=== PATIENT | female | born 1970 | race African-American/Black ===

== ENCOUNTER 2018-06-13 02:45 | Inpatient (IN) | payer OTHER ==
[~2018-06-13] VITALS: Ht 160 cm; Wt 114.6 kg
--- NOTE | ~2018-06-13 | OP ---
PATIENT NAME: KRYSTAL MARIE MEDICAL RECORD: [id number] :72 LOCATION:D. D.2139 ADMISSION DATE:06/13/18 SURGEON: BECKI COOPER MD DATE OF OPERATION: 06/13/2018 SURGEON: Becki Cooper MD PREOPERATIVE DIAGNOSIS: Large bowel obstruction. POSTOPERATIVE DIAGNOSIS: Large bowel obstruction. PROCEDURE PERFORMED: Flexible sigmoidoscopy with balloon dilatation of colorectal anastomotic stricture. ANESTHESIA: General. COMPLICATIONS: None. SPECIMENS: None. Case was grossly contaminated. OPERATIVE COURSE: After consent was obtained, the patient was taken to the operating room and placed in the supine position on the operating table. Next, general anesthesia was given via endotracheal intubation. Thereafter, the patient was placed in the lithotomy position. Digital rectal exam was performed. The flexible sigmoidoscope was inserted into the rectum. Rectum was dilated under direct endoscopic vision, the scope was advanced through the rectum. A severe area of anastomotic stenosis was encountered at approximately 10 cm. The scope was gently passed. The scope was able to be traversed across the anastomosis, slow gentle advancements. Once the scope was advanced to the stenosis, the proximal colon was fluid filled with liquid stool and markedly dilated. At this time, colonic lavage was performed. A series of balloons were passed through the gastroscope. the anastomosis was dilated from 28-Polish to 68-60 Polish over a period of approximately 20 minutes using multiple series of balloon dilators. Once the anastomosis was balloon dilated for 60 cm and held for 3 minutes, the balloon was removed. The scope was easily traversed across the anastomosis with a large copious evacuation of air and stool. At this time, the procedure was terminated. At the end of the case, all needle and instrument counts were correct. No complications occurred. The patient was extubated and transferred to the recovery room in satisfactory condition. TRANSINT:[id number] Voice Confirmation ID: [id number] DOCUMENT ID: [id number] BECKI COOPER MD at 0759 CC: [id number] DICTATION DATE: 06/13/18 1530 MACHINE CLIPPER: 06/13/18 1555 [place] [address]
--- NOTE | ~2018-06-13 | MORECARE ---
CASE MANAGEMENT DISCHARGE SUMMARY PATIENT: KRYSTAL MARIE UNIT: [id number] ADM DATE: 06/13/18 AGE: 47 : 72 SEX: F ROOM/BED: D.0641 AUTHOR: JOSSY,DOC PHYSICIAN: REFERRING PHYSICIAN: BECKI COOPER MD DATE OF SERVICE: 06/15/18 Discharge Plan Patient Name: KRYSTAL MARIE Facility: [facility]:[place] : 1970 Planned Disposition: Home Anticipated Discharge Date: 06/15/18 Discharge Date: Expected LOS: 2 Initial Reviewer: [email or web address] Initial Review Date: 06/15/2018 Generated: 06/15/18 4:18 pm Comments DCP- Discharge Planning Updated by [email or web address]: Zaid Carter on 06/15/18 2:[address] Patient Name: KRYSTAL MARIE Admission Status: ER Accout number: [id number] Admission Date: 06-13-2018 : 1970 Admission Diagnosis:UNSPECIFIED ABDOMINAL PAIN Attending: BECKI COOPER Current LOS: 2 Anticipated DC Date: 06-15-2018 Planned Disposition: Home Primary Insurance: [facility] Discharge Planning Comments: CM MET WITH PT AND SPOUSE IN ROOM TO DISCUSS DISCHARGE PLANNING AND NEEDS. KRYSTAL MARIE provided verbal consent to discuss current and ongoing needs with/in the presence of: SPOUSE, KARLENE. PT REPORTS LIVING AT HOME INDEPENDENTLY WITH SPOUSE. PT HAS NO MEDICAL EQUIPMENT AND NO OUTSIDE SERVICES ASSISTING IN THE HOME. CM DISCUSSED AVAILABILITY OF HOME HEALTH, REHAB SERVICES AND MEDICAL EQUIPMENT. PT DENIES DISCHARGE NEEDS AT THIS TIME, REPORTS HER SPOUSE WILL PICK HER UP FOR DISCHARGE HOME. PT PLANS TO DISCHARGE HOME WITH FAMILY, DENIES NEEDS AT THIS TIME. SPOUSE TO TRANSPORT HOME AT DISCHARGE. CM TO FOLLOW AND ASSIST NEEDED. Edge Burnisher: Zaid Carter DCPIA - Discharge Planning Initial Assessment Updated by [id number]: Zaid Carter on 06/15/18 3:14 pm * Is the patient Alert and Oriented? Yes * How many steps to enter\exit or inside your home? NONE * PCP DR PAYTON GILL * Pharmacy [facility] * Preadmission Environment Home with Family * ADLs Independent * Equipment None * Other Equipment NO MEDICAL EQUIPMENT PROVIDER PREFERENCE * List name and contact numbers for known caregivers / representatives who currently or will assist patient after discharge: KARLENE MARIE, SPOUSE, * Verbal permission to speak to the caregivers and representatives has been obtained from the patient. Yes * Community resources currently utilized None * Please name any agencies selected above. NONE * Additional services required to return to the preadmission environment? No * Can the patient safely return to the preadmission environment? Yes * Has this patient been hospitalized within the prior 30 days at any hospital? No Patient Name: KRYSTAL MARIE Page [phone] at 1518 All edits/amendments must be made on the electronic document DICTATION DATE: 06/15/181517 PERCHER: MICHAEL 06/15/181517 RPT#: [id number] DC DATE: STATUS: ADM IN [facility] [address] [place] [address] END OF REPORT
--- NOTE | ~2018-06-13 | MORECARE ---
CASE MANAGEMENT DISCHARGE SUMMARY PATIENT: KRYSTAL MARIE UNIT: [id number] ADM DATE: 06/13/18 AGE: 47 : 72 SEX: F ROOM/BED: D.8869 AUTHOR: JOSSY,DOC PHYSICIAN: REFERRING PHYSICIAN: BECKI COOPER MD DATE OF SERVICE: 06/27/18 Discharge Plan Patient Name: KRYSTAL MARIE Facility: [facility]:[place] : 1970 Planned Disposition: Home Anticipated Discharge Date: 06/27/18 Discharge Date: Expected LOS: 14 Initial Reviewer: [email or web address] Initial Review Date: 06/15/2018 Generated: 06/27/18 10:52 am Comments DCP- Discharge Planning Updated by [email or web address]: Zaid Carter on 06/15/18 3:[address] Patient Name: KRYSTAL MARIE Admission Status: ER Accout number: [id number] Admission Date: 06-13-2018 : 1970 Admission Diagnosis:UNSPECIFIED ABDOMINAL PAIN Attending: BECKI COOPER Current LOS: 2 Anticipated DC Date: 06-15-2018 Planned Disposition: Home [facility] Discharge Planning Comments: CM MET WITH PT AND SPOUSE IN ROOM TO DISCUSS DISCHARGE PLANNING AND NEEDS. KRYSTAL MARIE provided verbal consent to discuss current and ongoing needs with/in the presence of: SPOUSE, KARLENE. PT REPORTS LIVING AT HOME INDEPENDENTLY WITH SPOUSE. PT HAS NO MEDICAL EQUIPMENT AND NO OUTSIDE SERVICES ASSISTING IN THE HOME. CM DISCUSSED AVAILABILITY OF HOME HEALTH, REHAB SERVICES AND MEDICAL EQUIPMENT. PT DENIES DISCHARGE NEEDS AT THIS TIME, REPORTS HER SPOUSE WILL PICK HER UP FOR DISCHARGE HOME. PT PLANS TO DISCHARGE HOME WITH FAMILY, DENIES NEEDS AT THIS TIME. SPOUSE TO TRANSPORT HOME AT DISCHARGE. CM TO FOLLOW AND ASSIST NEEDED. Belt Loop Maker: Zaid Carter DCPIA - Discharge Planning Initial Assessment Updated by [id number]: Zaid Carter on 06/15/18 3:14 pm * Is the patient Alert and Oriented? Yes * How many steps to enter\exit or inside your home? NONE * PCP DR PAYTON GILL * [facility] * Preadmission Environment Home with Family * ADLs Independent * Equipment None * Other Equipment NO MEDICAL EQUIPMENT PROVIDER PREFERENCE * List name and contact numbers for known caregivers / representatives who currently or will assist patient after discharge: KARLENE MARIE, SPOUSE, * Verbal permission to speak to the caregivers and representatives has been obtained from the patient. Yes * Community resources currently utilized None * Please name any agencies selected above. NONE * Additional services required to return to the preadmission environment? No * Can the patient safely return to the preadmission environment? Yes * Has this patient been hospitalized within the prior 30 days at any hospital? No Last DP export: 06/15/18 3:18 Patient Name: KRYSTAL MARIE Page [phone] at 0952 All edits/amendments must be made on the electronic document DICTATION DATE: 06/27/18950 SUPERVISOR ADULT EDUCATION: MICHAEL 06/27/18950 RPT#: [id number] DC DATE: STATUS: ADM IN [facility] [address] [place] [address] END OF REPORT
--- NOTE | ~2018-06-13 | EC ---
PATIENT:KRYSTAL MARIE DATE OF SERVICE: 06/13/18 SEX: F MEDICAL RECORD: [id number] DATE OF : [birth year] LOCATION:D.M2 D.213 AGE OF PATIENT: 47 ADMISSION DATE: 06/13/18 REFERRING PHYSICIAN: INTERPRETING PHYSICIAN: SAIMA XIONG MD ECHOCARDIOGRAM REPORT ECHO CHARGES 4 ECHO COMPLETE Date: 06/26/18 CLINICAL DIAGNOSIS: EKG CHANGES ECHOCARDIOGRAPHIC MEASUREMENTS (adult normal given) AC root (d.<3.7cm) 3.3 cm LV Septum d (<1.2 cm> 2.3 cm Valve Excursion 1.0 cm LV Septum (systole) 2.3 cm Left Atria (s.<4.0cm> 3.3 cm LVPW d(<1.2cm) 0.8 cm RV (d.<2.3cm) 2.7 cm LVPW (sytole) 0.9 cm LV diastole(<5.6CM) 5.2 cm MV E-F(>70mm/sec) cm LV systole 4.3 cm LVOT Diameter 0.9 cm MV exc.(>10mm) cm Est.ejection fraction (50-75%) % DOPPLER: LVIT cm/sec A 73 cm/sec E 85 cm/sec LA cm/sec RVSP 29.0 mmHg LVOT 98 cm/sec AOP1/2T m/s Asc. Ao 147 cm/sec RVOT 66 cm/sec RA cm/sec PA 88 cm/sec AV Gradient Peak 8.7 mmHg AV Mean 5.2 mmHg AV Area 0.5 cm MV Gradient Peak 5.9 mmHg MV Mean 2.2 mmHg MV Area cm COMMENTS: Networks Computer Consultant: Darrian [facility] Music Therapist: 1 Dr. Xiong TAPE# PACS Pericardial Effusion N DATE OF SERVICE: 06/26/2018 PROCEDURE: Echocardiogram. FINDINGS: 1. Left ventricular chamber size is within normal limits. Left ventricular systolic function is normal. Overall ejection fraction estimated at 60%. 2. Left atrium, right atrium, and right ventricle chamber sizes are within normal limits. 3. Valvular structures have normal structure and motion. ECHOCARDIOGRAM REPORT [id number] KRYSTAL MARIE 4. Doppler interrogation reveals trace mitral regurgitation, mild tricuspid regurgitation, no other valvular insufficiency or stenosis. Pulmonary systolic pressure is normal estimated at 29 mmHg. 5. No evidence of pericardial effusion or left ventricular thrombus. TRANSINT:[id number] Voice Confirmation ID: [id number] DOCUMENT ID: [id number] SAIMA XIONG MD at 1059 CC: [id number] DICTATION DATE: 06/26/181805 ASSOCIATE MERCHANT: 06/26/182049 DIS IN 06/27/18 [facility] [address] [place] [id number]
[2018-06-13] MEDS ORDERED: COREG25 MG PO (02:54)
[2018-06-13] MEDS ORDERED: ALDACTONE50 MG PO (02:54)
[2018-06-13] MEDS ORDERED: CATAPRES0.3 MG PO (02:54)
[2018-06-13] MEDS ORDERED: NIFEDIPINE30 MG/BOT1 PO (02:54)
[2018-06-13] MEDS ORDERED: COZAAR100 MG PO (02:55)
[2018-06-13] MEDS ORDERED: PROTONIX40 MG PO (02:55)
[2018-06-13] MEDS ORDERED: ZOFRAN8 MG PO (02:55)
[2018-06-13 03:23] LABS: BASOPHILS 0.1 % (0-2); EOSINOPHILS 0.3 % (0-7); HEMATOCRIT 39.8 % (36.0-48.0); HEMOGLOBIN 13.3 g/dL (12-16); IMMATURE GRANULOCYTES 0.2 % (0-5); LYMPHOCYTES 12.3 % (15-50); MCH 30.3 pg (26.0-34.0); MCHC 33.4 g/dL (31.0-37.0); MCV 90.7 fL (80.0-100.0); MEAN PLATELET VOLUME 10.8 fL (7.4-10.4); MONOCYTES 5.1 % (2-11); PLATELET COUNT 241 10x3/uL (130-400); RBC 4.39 10x6/uL (4.00-5.40); WBC 11.9 10x3/uL (4.8-10.8)
[2018-06-13 03:31] LABS: APPEARANCE CLEAR (CLEAR); BILIRUBIN NEGATIVE (NEGATIVE); COLOR YELLOW (YELLOW); GLUCOSE NEGATIVE (NEGATIVE); KETONE NEGATIVE (NEGATIVE); NITRITE NEGATIVE (NEGATIVE); PROTEIN NEGATIVE (NEGATIVE); UROBILINOGEN NORMAL (NORMAL)
[2018-06-13 03:33] LABS: BACTERIA FEW /hpf (NONE SEEN); EPITHELIAL CELLS 0-5 /hpf (0-5); MUCUS <1+ /lpf (NONE SEEN); RED CELLS - URINE 0-5 /hpf (0-5); WHITE CELLS - URINE 0-5 /hpf (0-5)
[2018-06-13 03:37] LABS: ALBUMIN 3.4 g/dL (3.4-5.0); BILIRUBIN - TOTAL 0.22 mg/dL (0.2-1.3); CALCIUM 8.6 mg/dL (8.5-10.1); CARBON DIOXIDE 30.3 mmol/L (21.0-32.0); CREATININE - SERUM 1.2 mg/dL (0.6-1.3); POTASSIUM - SERUM 3.3 mmol/L (3.5-5.1); PROTEIN - SERUM 7.6 g/dL (6.4-8.2)
[2018-06-13 07:00] VITALS: BP 187/108
[2018-06-13 11:21] VITALS: BP 188/93
[2018-06-13 12:38] VITALS: BMI 49.6
[2018-06-13 16:16] VITALS: BP 143/86; BMI 30.1
[2018-06-13 16:53] VITALS: BP 149/92
[2018-06-13 20:00] VITALS: BP 143/90
[2018-06-14 01:10] VITALS: BP 137/70
[2018-06-14 06:06] VITALS: BP 147/92
[2018-06-14 08:24] VITALS: BP 191/99
[2018-06-14 09:04] LABS: ANION GAP 13.1 mmol/L (8-16); CALCIUM 8.4 mg/dL (8.5-10.1); CARBON DIOXIDE 29.3 mmol/L (21.0-32.0); CREATININE - SERUM 1.4 mg/dL (0.6-1.3); POTASSIUM - SERUM 3.4 mmol/L (3.5-5.1)
[2018-06-14 09:06] LABS: BASOPHILS 0 % (0-2); EOSINOPHILS 0 % (0-7); HEMATOCRIT 42.9 % (36.0-48.0); HEMOGLOBIN 14.4 g/dL (12-16); IMMATURE GRANULOCYTES 0.3 % (0-5); LYMPHOCYTES 10.6 % (15-50); MCH 30.1 pg (26.0-34.0); MCHC 33.6 g/dL (31.0-37.0); MCV 89.6 fL (80.0-100.0); MEAN PLATELET VOLUME 11.2 fL (7.4-10.4); MONOCYTES 10.3 % (2-11); NEUTROPHILS 78.8 % (40-80); RBC 4.79 10x6/uL (4.00-5.40); RDW 14.5 % (11.5-14.5); WBC 11.9 10x3/uL (4.8-10.8)
[2018-06-14 09:14] LABS: PLATELET COUNT 298 10x3/uL (130-400)
[2018-06-14 11:27] VITALS: BP 186/92
[2018-06-14 15:35] VITALS: BP 151/77
[2018-06-14 20:00] VITALS: BP 197/80
[2018-06-15] VITALS: BP 144/76
[2018-06-15 05:57] VITALS: BP 185/86
[2018-06-15 09:54] VITALS: BP 140/75
[2018-06-15 11:42] VITALS: BP 140/54
[2018-06-15 15:47] VITALS: BP 182/101
[2018-06-15 20:49] VITALS: BP 177/93
[2018-06-16 01:18] VITALS: BP 156/73
[2018-06-16 06:15] VITALS: BP 165/87
[2018-06-16 11:21] VITALS: BP 159/80
[2018-06-16 13:13] VITALS: BP 182/114
[2018-06-16 14:49] VITALS: BP 140/86
[2018-06-16 21:07] VITALS: BP 166/80
[2018-06-17] VITALS: BP 126/69
[2018-06-17 04:00] VITALS: BP 143/851
[2018-06-17 05:38] LABS: BASOPHILS 0.2 % (0-2); EOSINOPHILS 3.4 % (0-7); HEMOGLOBIN 11.1 g/dL (12-16); IMMATURE GRANULOCYTES 0.2 % (0-5); LYMPHOCYTES 20.5 % (15-50); MCH 29.8 pg (26.0-34.0); MCHC 31.7 g/dL (31.0-37.0); MCV 93.8 fL (80.0-100.0); MEAN PLATELET VOLUME 10.6 fL (7.4-10.4); NEUTROPHILS 58.7 % (40-80); RBC 3.73 10x6/uL (4.00-5.40); RDW 14.8 % (11.5-14.5); WBC 5.3 10x3/uL (4.8-10.8)
[2018-06-17 05:45] LABS: PLATELET COUNT 198 10x3/uL (130-400)
[2018-06-17 06:19] LABS: ANION GAP 12.9 mmol/L (8-16); CARBON DIOXIDE 27.1 mmol/L (21.0-32.0); CREATININE - SERUM 1.2 mg/dL (0.6-1.3)
[2018-06-17 09:04] VITALS: BP 179/99
[2018-06-17 15:57] VITALS: BP 205/103
[2018-06-17 21:06] VITALS: BP 152/75
[2018-06-18 01:00] VITALS: BP 134/52
[2018-06-18 05:56] LABS: BASOPHILS 0.2 % (0-2); EOSINOPHILS 5.5 % (0-7); HEMATOCRIT 32.6 % (36.0-48.0); HEMOGLOBIN 10.2 g/dL (12-16); IMMATURE GRANULOCYTES 0.2 % (0-5); LYMPHOCYTES 29.1 % (15-50); MCH 29.4 pg (26.0-34.0); MCHC 31.3 g/dL (31.0-37.0); MCV 93.9 fL (80.0-100.0); MEAN PLATELET VOLUME 10.8 fL (7.4-10.4); MONOCYTES 14.4 % (2-11); NEUTROPHILS 50.6 % (40-80); PLATELET COUNT 202 10x3/uL (130-400); RBC 3.47 10x6/uL (4.00-5.40); RDW 14.8 % (11.5-14.5); WBC 5.3 10x3/uL (4.8-10.8)
[2018-06-18 06:12] VITALS: BP 148/60
[2018-06-18 06:12] LABS: ANION GAP 11.7 mmol/L (8-16); CALCIUM 8.1 mg/dL (8.5-10.1); CARBON DIOXIDE 28.4 mmol/L (21.0-32.0); CREATININE - SERUM 1.3 mg/dL (0.6-1.3); POTASSIUM - SERUM 4.1 mmol/L (3.5-5.1)
[2018-06-18 08:24] VITALS: BP 162/54
[2018-06-18 11:08] VITALS: BP 172/87
[2018-06-18 16:14] VITALS: BP 156/74
[2018-06-18 20:21] VITALS: BP 164/68
[2018-06-19 01:24] VITALS: BP 128/77
[2018-06-19 05:36] VITALS: BP 141/78
[2018-06-19 06:01] LABS: BASOPHILS 0.1 % (0-2); EOSINOPHILS 5.1 % (0-7); HEMOGLOBIN 9.7 g/dL (12-16); IMMATURE GRANULOCYTES 0.4 % (0-5); LYMPHOCYTES 23.7 % (15-50); MCH 29.1 pg (26.0-34.0); MCHC 31.3 g/dL (31.0-37.0); MCV 93.1 fL (80.0-100.0); MEAN PLATELET VOLUME 10.9 fL (7.4-10.4); NEUTROPHILS 55.7 % (40-80); PLATELET COUNT 202 10x3/uL (130-400); RBC 3.33 10x6/uL (4.00-5.40); RDW 14.5 % (11.5-14.5)
[2018-06-19 06:09] LABS: WBC 6.7 10x3/uL (4.8-10.8)
[2018-06-19 06:23] LABS: ANION GAP 13.2 mmol/L (8-16); CALCIUM 8.3 mg/dL (8.5-10.1); CARBON DIOXIDE 25.1 mmol/L (21.0-32.0); CREATININE - SERUM 1.1 mg/dL (0.6-1.3); POTASSIUM - SERUM 4.3 mmol/L (3.5-5.1)
[2018-06-19 08:12] VITALS: BP 153/93
[2018-06-19 11:20] VITALS: BP 144/100
[2018-06-19 15:41] VITALS: BP 155/94
[2018-06-19 19:56] VITALS: BP 175/76
[2018-06-20 00:57] VITALS: BP 193/85
[2018-06-20 05:21] LABS: BASOPHILS 0.2 % (0-2); EOSINOPHILS 3.8 % (0-7); HEMATOCRIT 32.6 % (36.0-48.0); HEMOGLOBIN 10.7 g/dL (12-16); IMMATURE GRANULOCYTES 1.6 % (0-5); LYMPHOCYTES 16.9 % (15-50); MCH 29.9 pg (26.0-34.0); MCHC 32.8 g/dL (31.0-37.0); MEAN PLATELET VOLUME 10.3 fL (7.4-10.4); MONOCYTES 10.3 % (2-11); NEUTROPHILS 67.2 % (40-80); RBC 3.58 10x6/uL (4.00-5.40); RDW 14.2 % (11.5-14.5); WBC 8.3 10x3/uL (4.8-10.8)
[2018-06-20 05:23] LABS: MCV 91.1 fL (80.0-100.0); PLATELET COUNT 248 10x3/uL (130-400)
[2018-06-20 05:50] LABS: ANION GAP 15.4 mmol/L (8-16); CALCIUM 8.3 mg/dL (8.5-10.1); CARBON DIOXIDE 25.4 mmol/L (21.0-32.0); CREATININE - SERUM 0.9 mg/dL (0.6-1.3); POTASSIUM - SERUM 3.8 mmol/L (3.5-5.1)
[2018-06-20 05:58] VITALS: BP 181/76
[2018-06-20 08:33] VITALS: BP 151/79
[2018-06-20 11:12] VITALS: BP 147/90
[2018-06-20 15:48] VITALS: BP 155/91
[2018-06-20 20:00] VITALS: BP 180/90
[2018-06-21 01:01] VITALS: BP 145/78
[2018-06-21 04:48] VITALS: BP 140/77
[2018-06-21 04:54] LABS: BASOPHILS 0.2 % (0-2); EOSINOPHILS 3.4 % (0-7); HEMOGLOBIN 11.4 g/dL (12-16); IMMATURE GRANULOCYTES 1.6 % (0-5); LYMPHOCYTES 17.9 % (15-50); MCH 29.4 pg (26.0-34.0); MCHC 32.6 g/dL (31.0-37.0); MCV 90.2 fL (80.0-100.0); MEAN PLATELET VOLUME 10.3 fL (7.4-10.4); MONOCYTES 10.3 % (2-11); NEUTROPHILS 66.6 % (40-80); PLATELET COUNT 288 10x3/uL (130-400); RBC 3.88 10x6/uL (4.00-5.40); RDW 14.1 % (11.5-14.5)
[2018-06-21 05:21] LABS: ANION GAP 15.7 mmol/L (8-16); CALCIUM 8.6 mg/dL (8.5-10.1); CREATININE - SERUM 0.9 mg/dL (0.6-1.3); POTASSIUM - SERUM 3.7 mmol/L (3.5-5.1)
[2018-06-21 08:30] VITALS: BP 148/86
[2018-06-21 11:28] VITALS: BP 123/69
[2018-06-21 16:48] VITALS: BP 127/73
[2018-06-21 20:00] VITALS: BP 145/62
[2018-06-22] VITALS: BP 119/60
[2018-06-22 04:00] VITALS: BP 147/80
[2018-06-22 05:01] LABS: BASOPHILS 0.2 % (0-2); EOSINOPHILS 2.1 % (0-7); HEMATOCRIT 34.4 % (36.0-48.0); HEMOGLOBIN 10.8 g/dL (12-16); LYMPHOCYTES 10.6 % (15-50); MCH 28.8 pg (26.0-34.0); MCHC 31.4 g/dL (31.0-37.0); MCV 91.7 fL (80.0-100.0); MEAN PLATELET VOLUME 10.1 fL (7.4-10.4); MONOCYTES 7.7 % (2-11); NEUTROPHILS 78.4 % (40-80); PLATELET COUNT 293 10x3/uL (130-400); RBC 3.75 10x6/uL (4.00-5.40); RDW 14.4 % (11.5-14.5); WBC 10.6 10x3/uL (4.8-10.8)
[2018-06-22 05:19] LABS: ANION GAP 10.3 mmol/L (8-16); CALCIUM 8.6 mg/dL (8.5-10.1); CARBON DIOXIDE 29.6 mmol/L (21.0-32.0); POTASSIUM - SERUM 3.9 mmol/L (3.5-5.1); VANCOMYCIN - TROUGH 18.4 ug/mL (10.0-20.0)
[2018-06-22 05:24] LABS: CREATININE - SERUM 1.3 mg/dL (0.6-1.3)
[2018-06-22 08:10] VITALS: BP 133/69
[2018-06-22 11:19] VITALS: BP 144/74
[2018-06-22 15:28] VITALS: BP 137/77
[2018-06-22 20:41] VITALS: BP 122/66
[2018-06-23 00:48] VITALS: BP 142/75
[2018-06-23 05:36] VITALS: BP 134/71
[2018-06-23 07:06] LABS: BASOPHILS 0.1 % (0-2); EOSINOPHILS 2.9 % (0-7); HEMOGLOBIN 10.6 g/dL (12-16); IMMATURE GRANULOCYTES 0.7 % (0-5); LYMPHOCYTES 18.4 % (15-50); MCH 29.4 pg (26.0-34.0); MCHC 32.1 g/dL (31.0-37.0); MCV 91.7 fL (80.0-100.0); MEAN PLATELET VOLUME 9.9 fL (7.4-10.4); MONOCYTES 9.9 % (2-11); PLATELET COUNT 264 10x3/uL (130-400); RDW 14.4 % (11.5-14.5); WBC 9.9 10x3/uL (4.8-10.8)
[2018-06-23 07:30] LABS: ALBUMIN 2.5 g/dL (3.4-5.0); ANION GAP 10.8 mmol/L (8-16); BILIRUBIN - TOTAL 0.29 mg/dL (0.2-1.3); CALCIUM 8.7 mg/dL (8.5-10.1); CARBON DIOXIDE 27.4 mmol/L (21.0-32.0); CREATININE - SERUM 1.2 mg/dL (0.6-1.3); POTASSIUM - SERUM 4.2 mmol/L (3.5-5.1); PROTEIN - SERUM 6.7 g/dL (6.4-8.2)
[2018-06-23 08:05] VITALS: BP 144/69
[2018-06-23 11:59] VITALS: BP 166/80
[2018-06-23 14:53] VITALS: BP 158/96
[2018-06-23 21:00] VITALS: BP 153/78
[2018-06-24] VITALS: BP 141/68
[2018-06-24 04:00] VITALS: BP 102/75
[2018-06-24 06:58] LABS: BASOPHILS 0.1 % (0-2); EOSINOPHILS 2.5 % (0-7); HEMOGLOBIN 10.8 g/dL (12-16); IMMATURE GRANULOCYTES 0.6 % (0-5); LYMPHOCYTES 16.6 % (15-50); MCH 29.6 pg (26.0-34.0); MCHC 31.8 g/dL (31.0-37.0); MCV 93.2 fL (80.0-100.0); MEAN PLATELET VOLUME 10.5 fL (7.4-10.4); NEUTROPHILS 71.2 % (40-80); RBC 3.65 10x6/uL (4.00-5.40); RDW 14.4 % (11.5-14.5); WBC 10.5 10x3/uL (4.8-10.8)
[2018-06-24 07:12] LABS: PLATELET COUNT 317 10x3/uL (130-400)
[2018-06-24 07:22] LABS: ALBUMIN 2.6 g/dL (3.4-5.0); ANION GAP 12.3 mmol/L (8-16); BILIRUBIN - TOTAL 0.28 mg/dL (0.2-1.3); CALCIUM 8.6 mg/dL (8.5-10.1); CREATININE - SERUM 1.2 mg/dL (0.6-1.3); POTASSIUM - SERUM 4.3 mmol/L (3.5-5.1); PROTEIN - SERUM 6.8 g/dL (6.4-8.2)
[2018-06-24 07:53] VITALS: BP 117/72
[2018-06-24 10:58] VITALS: BP 123/71
[2018-06-24 16:03] VITALS: BP 129/78
[2018-06-24 20:45] VITALS: BP 120/66
[2018-06-25] VITALS (18 sets, daily range): BP systolic 100–185; BP diastolic 55–95
[2018-06-25 05:10] LABS: BASOPHILS 0.1 % (0-2); EOSINOPHILS 3.5 % (0-7); HEMATOCRIT 32.3 % (36.0-48.0); HEMOGLOBIN 10.3 g/dL (12-16); IMMATURE GRANULOCYTES 0.5 % (0-5); LYMPHOCYTES 20.9 % (15-50); MCH 29.2 pg (26.0-34.0); MCHC 31.9 g/dL (31.0-37.0); MCV 91.5 fL (80.0-100.0); MEAN PLATELET VOLUME 10.9 fL (7.4-10.4); MONOCYTES 9.3 % (2-11); NEUTROPHILS 65.7 % (40-80); PLATELET COUNT 225 10x3/uL (130-400); RBC 3.53 10x6/uL (4.00-5.40); RDW 14.5 % (11.5-14.5)
[2018-06-25 05:24] LABS: ALBUMIN 2.6 g/dL (3.4-5.0); ANION GAP 12.9 mmol/L (8-16); BILIRUBIN - TOTAL 0.27 mg/dL (0.2-1.3); CALCIUM 8.2 mg/dL (8.5-10.1); CARBON DIOXIDE 26.4 mmol/L (21.0-32.0); POTASSIUM - SERUM 4.3 mmol/L (3.5-5.1); PROTEIN - SERUM 6.3 g/dL (6.4-8.2)
[2018-06-25 05:26] LABS: CREATININE - SERUM 1.6 mg/dL (0.6-1.3)
[2018-06-25 17:07] LABS: CKMB 2.4 U/L (0.0-3.6); CREATINE KINASE 54 UL (21-215); TROPONIN-I < 0.017 ng/mL (0.000-0.060)
[2018-06-26 01:20] VITALS: BP 106/58
[2018-06-26 05:15] VITALS: BP 91/54
[2018-06-26 05:15] LABS: BASOPHILS 0.2 % (0-2); EOSINOPHILS 3.4 % (0-7); HEMATOCRIT 31.8 % (36.0-48.0); HEMOGLOBIN 10.1 g/dL (12-16); IMMATURE GRANULOCYTES 0.5 % (0-5); LYMPHOCYTES 21.8 % (15-50); MCH 29.3 pg (26.0-34.0); MCHC 31.8 g/dL (31.0-37.0); MCV 92.2 fL (80.0-100.0); MEAN PLATELET VOLUME 10.4 fL (7.4-10.4); NEUTROPHILS 65.1 % (40-80); RBC 3.45 10x6/uL (4.00-5.40); RDW 14.5 % (11.5-14.5); WBC 10.9 10x3/uL (4.8-10.8)
[2018-06-26 05:19] LABS: PLATELET COUNT 287 10x3/uL (130-400)
[2018-06-26 05:58] LABS: ALBUMIN 2.4 g/dL (3.4-5.0); ANION GAP 12.8 mmol/L (8-16); BILIRUBIN - TOTAL 0.23 mg/dL (0.2-1.3); CALCIUM 8.4 mg/dL (8.5-10.1); CARBON DIOXIDE 24.4 mmol/L (21.0-32.0); CREATININE - SERUM 1.6 mg/dL (0.6-1.3); POTASSIUM - SERUM 4.2 mmol/L (3.5-5.1); PROTEIN - SERUM 6.3 g/dL (6.4-8.2)
[2018-06-26 08:22] VITALS: BP 94/54
[2018-06-26 09:26] VITALS: Ht 160 cm; Wt 114.6 kg
[2018-06-26 11:51] VITALS: BP 104/51
[2018-06-26 16:04] VITALS: BP 106/55
[2018-06-26 22:03] VITALS: BP 145/56
[2018-06-27 01:13] VITALS: BP 113/59
[2018-06-27 05:01] VITALS: BP 121/74
[2018-06-27 06:01] LABS: BASOPHILS 0.1 % (0-2); EOSINOPHILS 2.7 % (0-7); HEMATOCRIT 31.2 % (36.0-48.0); HEMOGLOBIN 10.1 g/dL (12-16); IMMATURE GRANULOCYTES 0.5 % (0-5); LYMPHOCYTES 24.8 % (15-50); MCH 30.1 pg (26.0-34.0); MCHC 32.4 g/dL (31.0-37.0); MCV 92.9 fL (80.0-100.0); MEAN PLATELET VOLUME 10.5 fL (7.4-10.4); MONOCYTES 9.1 % (2-11); NEUTROPHILS 62.8 % (40-80); PLATELET COUNT 261 10x3/uL (130-400); RBC 3.36 10x6/uL (4.00-5.40); RDW 14.8 % (11.5-14.5); WBC 8.6 10x3/uL (4.8-10.8)
[2018-06-27 06:42] LABS: ALBUMIN 2.6 g/dL (3.4-5.0); ANION GAP 14.4 mmol/L (8-16); BILIRUBIN - TOTAL 0.17 mg/dL (0.2-1.3); CALCIUM 8.5 mg/dL (8.5-10.1); CARBON DIOXIDE 23.8 mmol/L (21.0-32.0); CREATININE - SERUM 1.3 mg/dL (0.6-1.3); POTASSIUM - SERUM 4.2 mmol/L (3.5-5.1); PROTEIN - SERUM 6.7 g/dL (6.4-8.2); T4 THYROXIN - FREE 1.16 ng/dL (0.76-1.46); THYROID STIMULATING HORMONE 3.42 uIU/mL (0.36-3.74)
[2018-06-27] MEDS ORDERED: PHENERGAN25 M1 PO (08:27)
[2018-06-27] MEDS ORDERED: LINZESS145 MCG PO (08:27)
[2018-06-27] MEDS ORDERED: MIRALAX17 GM PO (08:28)
[2018-06-27 08:33] VITALS: BP 107/67
== END 2018-06-27 11:13 | disposition home or self-care (01) | DRG 389 ==
LOC: D.ER 02:45 → D.EDHOLD 06:56 → D.M2 06:56
PROVIDERS: Family Medicine; Internal Medicine Nephrology; Surgery
PROC: 0D7N8ZZ Dilation of Sigmoid Colon, Via Natural or Artificial Opening Endoscopic (ICD-10-PCS; principal; 2018-06-13 12:00)
PROC: 05HB33Z Insertion of Infusion Device into Right Basilic Vein, Percutaneous Approach (ICD-10-PCS; 2018-06-15)
PROC: B54MZZA Ultrasonography of Right Upper Extremity Veins, Guidance (ICD-10-PCS; 2018-06-15)
DX: K56.699 Other intestinal obstruction unspecified as to partial versus complete obstruction (principal); N17.9 Acute kidney failure, unspecified; Z68.42 Body mass index [BMI] 45.0-49.9, adult; N39.0 Urinary tract infection, site not specified; I10 Essential (primary) hypertension; J45.909 Unspecified asthma, uncomplicated; E87.6 Hypokalemia; E66.01 Morbid (severe) obesity due to excess calories; R94.31 Abnormal electrocardiogram [ECG] [EKG]; B96.4 Proteus (mirabilis) (morganii) as the cause of diseases classified elsewhere; B96.20 Unspecified Escherichia coli [E. coli] as the cause of diseases classified elsewhere; K59.09 Other constipation

== ENCOUNTER 2018-11-14 11:16 | Inpatient (IN) | payer OTHER ==
[~2018-11-14] VITALS: Ht 160 cm; Wt 99.8 kg
[~2018-11-14 11:16] MED LIST: ALDACTONE50 MG PO; CATAPRES0.3 MG PO; COREG25 MG PO; COZAAR100 MG PO; LINZESS145 MCG PO; MIRALAX17 GM PO; NIFEDIPINE30 MG/BOT1 PO; PHENERGAN25 M1 PO; PROTONIX40 MG PO; ZOFRAN8 MG PO
[2018-11-14 11:52] LABS: BASOPHILS 0.1 % (0-2); EOSINOPHILS 0 % (0-7); HEMATOCRIT 43.1 % (36.0-48.0); HEMOGLOBIN 14.3 g/dL (12-16); IMMATURE GRANULOCYTES 0.5 % (0-5); LYMPHOCYTES 13.4 % (15-50); MCH 29.2 pg (26.0-34.0); MCHC 33.2 g/dL (31.0-37.0); MCV 88.1 fL (80.0-100.0); MEAN PLATELET VOLUME 11.2 fL (7.4-10.4); MONOCYTES 8.4 % (2-11); NEUTROPHILS 77.6 % (40-80); PLATELET COUNT 249 10x3/uL (130-400); RBC 4.89 10x6/uL (4.00-5.40); RDW 15.6 % (11.5-14.5); WBC 13.4 10x3/uL (4.8-10.8)
[2018-11-14 12:14] LABS: ANION GAP 16.6 mmol/L (8-16); BILIRUBIN - TOTAL 0.57 mg/dL (0.2-1.3); CALCIUM 8.5 mg/dL (8.5-10.1); CARBON DIOXIDE 25.5 mmol/L (21.0-32.0); CREATININE - SERUM 2.3 mg/dL (0.6-1.3); POTASSIUM - SERUM 3.1 mmol/L (3.5-5.1); PROTEIN - SERUM 7.8 g/dL (6.4-8.2)
[2018-11-14 12:37] LABS: APPEARANCE CLEAR (CLEAR); COLOR YELLOW (YELLOW)
[2018-11-14 12:38] LABS: BACTERIA MODERATE /hpf (NONE SEEN)
[2018-11-14 12:39] LABS: EPITHELIAL CELLS 0-5 /hpf (0-5); HYALINE CAST 0-5 /lpf (NONE SEEN); MUCUS <1+ /lpf (NONE SEEN); RED CELLS - URINE 0-5 /hpf (0-5); SPECIFIC GRAVITY 1.025 (1.005-1.020); WHITE CELLS - URINE RARE /hpf (0-5)
[2018-11-14 12:40] LABS: BILIRUBIN NEGATIVE (NEGATIVE); GLUCOSE NEGATIVE (NEGATIVE); KETONE NEGATIVE (NEGATIVE); NITRITE NEGATIVE (NEGATIVE); PROTEIN NEGATIVE (NEGATIVE); UROBILINOGEN NORMAL (NORMAL)
--- NOTE | 2018-11-14 13:29 | NUR ---
SPOKE WITH TREATING PROVIDER TO RELAY THAT VASCULAR NURSE Ron GASTELUM RN WAS UNABLE TO ESTABLISH IV ACCESS. PER TREATING PROVIDER MEDICATIONS TO BE GIVEN IM AND DC ORDER FOR NS BOLUS. PT'S PRIMARY NURSE NOTIFIED OF THE ABOVE.
--- NOTE | 2018-11-14 15:54 | NUR ---
PER DR. ESCOBAR, CAN GIVE PAIN MEDICATIONS IM UNTIL IV ESTABLISHED.
--- NOTE | 2018-11-14 16:23 | MORECARE ---
CASE MANAGEMENT DISCHARGE SUMMARY PATIENT: KRYSTAL MAR UNIT: [id number] ADM DATE: 11/14/18 AGE: 48 : 72 SEX: F ROOM/BED: D.E06 AUTHOR: JOSSYDOC PHYSICIAN: REFERRING PHYSICIAN: CRYSTAL ESCOBAR MD DATE OF SERVICE: 11/14/18 Discharge Plan Patient Name: KRYSTAL MAR Facility: [facility]:[place] : 1970 Planned Disposition: Home Anticipated Discharge Date: 11/17/18 Discharge Date: Expected LOS: 3 Initial Reviewer: [email or web address] Initial Review Date: 11/14/2018 Generated: 11/14/18 5:23 pm DCP- Discharge Planning Updated by [email or web address]: Mayda Blanco on 11/14/18 3:[address] Patient Name: KRYSTAL MAR Admission Status: ER Accout number: [id number] Admission Date: 11-14-2018 : 1970 Admission Diagnosis: Attending: CRYSTAL ESCOBAR Current LOS: 1 Anticipated DC Date: 11-17-2018 Planned Disposition: Home Primary Insurance: [employer] PPO Discharge Planning Comments: CM met with patient to complete initial dc planning assessment. CM educated patient on the CM role and verbal consent given by patient to complete assessment. Patient lives at home with her independently. At discharge patient plans to return home with her and feels this is a safe discharge. CM discussed availability of home health, rehab services, and medical equipment. Patient denied known discharge needs at this time. CM will continue to follow and will assist as needed with dc plans/needs. Button Cutter: Mayda Blanco RN, [facility] DCPIA - Discharge Planning Initial Assessment Updated by [id number]: Mayda Blanco on 11/14/18 4:13 pm * Is the patient Alert and Oriented? Yes * How many steps to enter\exit or inside your home? None * PCP Don't have a pcp * [facility] [address] * Preadmission Environment Home with Family * ADLs Independent * Equipment None * List name and contact numbers for known caregivers / representatives who currently or will assist patient after discharge: Kaden Mar - spouse - [phone] * Verbal permission to speak to the caregivers and representatives has been obtained from the patient. Yes * Community resources currently utilized None * Additional services required to return to the preadmission environment? No * Can the patient safely return to the preadmission environment? Yes * Has this patient been hospitalized within the prior 30 days at any hospital? No Patient Name: KRYSTAL MAR Page [phone] at 1623 All edits/amendments must be made on the electronic document DICTATION DATE: 11/14/181621 SENIOR IT SECURITY ANALYST: MICHAEL 11/14/181621 RPT#: [id number] DC DATE: STATUS: ADM IN [facility] [address] [place] [address] END OF REPORT
[2018-11-14 16:31] VITALS: BP 133/74; BMI 39.0
--- NOTE | 2018-11-14 20:22 | NUR ---
DR. ESCOBAR CALLED REGUARDING SOME FORM OF PAIN MED.UNTIL IV ACCESS AQUIRED.CALLED X2. WILL CONTINUE TO MONITOR FOR ANY CHGES. AND CONTINUE CURRENT PLAN OF CARE
[2018-11-14 20:54] VITALS: BP 114/66
[2018-11-15 00:54] VITALS: BP 124/60
[2018-11-15 05:01] VITALS: BP 97/57
--- NOTE | 2018-11-15 07:45 | NUR ---
PT RESTING IN BED. CO OF PAIN. NPO. NO S/S OF ACUTE DISTRESS. CL IN PLACE.
[2018-11-15 08:30] VITALS: BP 123/64
[2018-11-15 12:10] VITALS: Ht 160 cm; Wt 99.8 kg
--- NOTE | 2018-11-15 12:28 | NUR ---
PT CO OF WANTING SOMETHING TO DRINK AND PAIN. WAITING ON CENTRAL LINE TO BE PLACED. DEJUAN PRYOR AWARE OF IV ACCESS AT THIS TIME. WAITING ON SX. NO S.S OF ACUTE DISTRESS. IM DILUADID GIVEN PER MD ORDER FOR PAIN.
[2018-11-15 13:03] VITALS: BP 147/78
[2018-11-15 14:45] VITALS: BP 149/78
[2018-11-15 16:09] LABS: HEMATOCRIT 41.4 % (36.0-48.0); HEMOGLOBIN 13.7 g/dL (12-16); MCH 28.8 pg (26.0-34.0); MCHC 33.1 g/dL (31.0-37.0); MEAN PLATELET VOLUME 11.2 fL (7.4-10.4); PLATELET COUNT 258 10x3/uL (130-400); RBC 4.76 10x6/uL (4.00-5.40); RDW 15.7 % (11.5-14.5); WBC 11.5 10x3/uL (4.8-10.8)
[2018-11-15 16:28] LABS: ANION GAP 21.1 mmol/L (8-16); BILIRUBIN - TOTAL 0.62 mg/dL (0.2-1.3); CALCIUM 8.3 mg/dL (8.5-10.1); CARBON DIOXIDE 23.4 mmol/L (21.0-32.0); POTASSIUM - SERUM 3.5 mmol/L (3.5-5.1); PROTEIN - SERUM 7.7 g/dL (6.4-8.2)
[2018-11-15 17:16] LABS: LYMPHOCYTES 15 % (15-50); NEUTROPHILS 71 % (40-80); PLATELET ESTIMATE NORMAL
--- NOTE | 2018-11-15 19:26 | NUR ---
PT VOMITED X5 THIS SHIFT. CO OF SHARP ABD PAIN. DILAUDID Q4PRN PER MD ORDER GIVEN. NEW ORDER FOR PHENERGAN 25 MG GIVEN FOR CO N/V FROM DR. DE LEON. COVERED WITH EP FOR HYPOKALEMIA. NO S/S OF ACUTE DISTRESS. AT BEDSIDE. CL IN PLACE.
[2018-11-15 20:10] VITALS: BP 153/66
--- NOTE | 2018-11-16 03:49 | NUR ---
AT CHGE OF SHIFT STATES I VOMITTED ABOUT 5 TIMES TODAT AND LOST COUNT OF LOOSE STOOLS I HAD. INSTRUCTED TO NOT FLUSH STOOLS LET NURSE SEE THEM ABDOMEN LGELY DISTENDED AND FIRM BOWEL SOUNDS FAINT ALL QUADRANTS
--- NOTE | 2018-11-16 04:21 | NUR ---
I have reviewed this patient and I concur with the Shift Assessment completed by the Licensed Practical Nurse today this shift.
[2018-11-16 04:45] VITALS: BP 148/54
--- NOTE | 2018-11-16 07:48 | NUR ---
PT RESTING IN BED. STATES, " I DON'T FEEL ANY BETTER THAN YESTERDAY." ABD FIRM AND DISTENDED. CO OF PAIN AND NAUSEA. NO EMESIS NOTED. PHENERGAN AND DILAUDID GIVEN PER MD ORDER. NO S/S OF ACUTE DISTRESS. CL IN PLACE.
[2018-11-16 08:02] LABS: ANION GAP 19.7 mmol/L (8-16); CALCIUM 8.5 mg/dL (8.5-10.1); CARBON DIOXIDE 23.6 mmol/L (21.0-32.0); POTASSIUM - SERUM 3.3 mmol/L (3.5-5.1)
[2018-11-16 08:06] LABS: BASOPHILS 0.1 % (0-2); EOSINOPHILS 0.1 % (0-7); HEMATOCRIT 35.9 % (36.0-48.0); HEMOGLOBIN 11.9 g/dL (12-16); IMMATURE GRANULOCYTES 0.4 % (0-5); MCH 28.9 pg (26.0-34.0); MCHC 33.1 g/dL (31.0-37.0); MCV 87.1 fL (80.0-100.0); MEAN PLATELET VOLUME 11.6 fL (7.4-10.4); MONOCYTES 12.2 % (2-11); NEUTROPHILS 71.2 % (40-80); PLATELET COUNT 245 10x3/uL (130-400); RBC 4.12 10x6/uL (4.00-5.40); RDW 16.2 % (11.5-14.5)
[2018-11-16 08:07] LABS: WBC 7.3 10x3/uL (4.8-10.8)
[2018-11-16 09:23] VITALS: BP 100/40
--- NOTE | 2018-11-16 11:39 | NUR ---
PT MOANS AND CO OF "9/10" ON PAIN SCALE. DILAUDID GIVEN PER MD ORDER FOR PAIN AND PHENERGAN GIVEN PER MD ORDER FOR N/V. NO EMESIS NOTED TODAY. PT ROLLED OVER IN BED AND CELL PHONE SLID OFF BED. NOTICED A CRACKED SCREEN. PLACED PHONE ON PT BEDSIDE TABLE.NO S/S OF ACUTE DISTRESS. CL IN PLACE.
[2018-11-16 12:22] VITALS: BP 114/71
--- NOTE | 2018-11-16 17:16 | NUR ---
PT RESTING IN BED. NO S/S OF ACUTE DISTRESS. CL IN PLACE.
[2018-11-16 17:53] VITALS: BP 143/82
--- NOTE | 2018-11-16 18:04 | NUR ---
PT RESTING IN BED. "LITTLE RELIEF FROM PAIN MEDS. PAIN LEVEL 8/10." DAUGHTERS AT BEDSIDE. NO S/S OF ACUTE DISTRESS, CL IN PLACE.
[2018-11-16 21:57] VITALS: BP 124/94
[2018-11-17 01:29] VITALS: BP 154/80
[2018-11-17 05:05] VITALS: BP 164/74
[2018-11-17 05:08] LABS: HEMATOCRIT 33.1 % (36.0-48.0); HEMOGLOBIN 10.9 g/dL (12-16); MCH 28.8 pg (26.0-34.0); MCHC 32.9 g/dL (31.0-37.0); MCV 87.3 fL (80.0-100.0); MEAN PLATELET VOLUME 11.3 fL (7.4-10.4); PLATELET COUNT 292 10x3/uL (130-400); RBC 3.79 10x6/uL (4.00-5.40); RDW 16.4 % (11.5-14.5); WBC 6.2 10x3/uL (4.8-10.8)
[2018-11-17 05:28] LABS: ANION GAP 16.3 mmol/L (8-16); CALCIUM 8.2 mg/dL (8.5-10.1); CARBON DIOXIDE 22.1 mmol/L (21.0-32.0); CREATININE - SERUM 3.8 mg/dL (0.6-1.3); POTASSIUM - SERUM 3.4 mmol/L (3.5-5.1)
--- NOTE | 2018-11-17 07:55 | NUR ---
PATIENT LYING IN BED. ALERT AND ORIENTED X3. LUNGS CLEAR BILATERALLY IN ALL VASQUEZ. HEART SOUNDS HEARD AT S1 AND S2 IN ALL VASQUEZ. BOWEL SOUNDS HEARD X4. ABD DISTENDED. C/O ABDOMINAL PAIN 03/31. C/O "SOME NAUSEA." REQUESTS PRN PAIN AND NAUSEA MEDICATIONS. SKIN INTACT WITHOUT REDNESS. PERIPHERAL PULSES FELT BILATERALLY AT REGULAR RATE AND RHYTHM. DENIES FURTHER NEEDS. WILL CONTINUE TO MONITOR.
[2018-11-17 08:00] LABS: EOSINOPHILS 1 % (0-7); LYMPHOCYTES 40 % (15-50); MONOCYTES 9 % (2-11); NEUTROPHILS 50 % (40-80); PLATELET ESTIMATE NORMAL
--- NOTE | 2018-11-17 08:43 | NUR ---
IV TO RIGHT IJ PATENT. MEDICATIONS GIVEN WITHOUT DIFFICULTY. WILL CONTINUE TO MONITOR.
[2018-11-17 09:30] VITALS: BP 126/69
--- NOTE | 2018-11-17 10:11 | NUR ---
PATIENT RETURNED FROM SURGERY WITH NO PROBLEMS. IV ANTIBIOTIC RESTARTED. VITALS STABLE. WILL CONTINUE TO MONITOR.
--- NOTE | 2018-11-17 11:52 | NUR ---
PATIENT RESTING IN BED. STATES MEDICATION IS HELPING BUT STILL IN SOME PAIN. WILL CONTINUE TO MONITOR.
--- NOTE | 2018-11-17 12:39 | NUR ---
DRSG CHANGED TO RIGHT IJ USING STERILE PROCEDURE WITHOUT COMPLICATIONS.
--- NOTE | 2018-11-17 12:54 | NUR ---
PRN DILAUDID GIVEN FOR PAIN 05/01. WILL CONTINUE TO MONITOR. LUNCH AT BEDSIDE. CLEAR LIQUID DIET PER ORDERS. PATIENT REQUEST POPSICLE AND CRANBERRY JUICE INSTEAD.
--- NOTE | 2018-11-17 13:56 | NUR ---
Nutrition Follow Up: Chart reviewed. Pt is s/p Flex Sig. Diet: Clear Liquids to AAT to Regular BM: 11/16/18 Wt stable Labs reviewed - BUN, Cr elevated Meds noted including Flagyl Rec continue advancing SELVIN as medically feasible. RD following.
[2018-11-17 17:16] VITALS: BP 113/64
--- NOTE | 2018-11-17 17:41 | NUR ---
WENT TO REASSESS PRN DILAUDID. PATIENT SLEEPING. AT BS.
--- NOTE | 2018-11-17 18:47 | NUR ---
PRN TYLENOL AND ZOFRAN GIVEN FOR PAIN 7/10 AND NAUSEA. WILL CONTINUE TO MONITOR.
[2018-11-17 19:00] VITALS: BP 119/73
--- NOTE | 2018-11-17 21:07 | NUR ---
PT C/O ABDOMINAL PAIN 9/10 AND NAUSEA. GAVE DILAUDID 1 MG IV PUSH AND PHENERGAN 25 MG IM TO LEFT VENTROGLUTEAL. GAVE SCHEDULED MEDS. ASSESSMENT COMPLETE PER FLOW-SHEET. NO OTHER NEEDS. WILL CONTINUE TO MONITOR.
[2018-11-18] VITALS: BP 121/78
[2018-11-18 03:00] VITALS: BP 140/75
[2018-11-18 06:00] LABS: HEMATOCRIT 32.1 % (36.0-48.0); HEMOGLOBIN 10.4 g/dL (12-16); IMMATURE GRANULOCYTES 6.6 % (0-5); MCH 28.6 pg (26.0-34.0); MCHC 32.4 g/dL (31.0-37.0); MCV 88.2 fL (80.0-100.0); MEAN PLATELET VOLUME 10.8 fL (7.4-10.4); PLATELET COUNT 244 10x3/uL (130-400); RBC 3.64 10x6/uL (4.00-5.40); RDW 16.6 % (11.5-14.5)
[2018-11-18 06:14] LABS: ANION GAP 12.6 mmol/L (8-16); CALCIUM 7.9 mg/dL (8.5-10.1); CARBON DIOXIDE 25.2 mmol/L (21.0-32.0)
[2018-11-18 06:15] LABS: CREATININE - SERUM 1.8 mg/dL (0.6-1.3)
[2018-11-18 06:16] LABS: WBC 4.6 10x3/uL (4.8-10.8)
[2018-11-18 06:18] LABS: POTASSIUM - SERUM 2.8 mmol/L (3.5-5.1)
[2018-11-18 07:11] LABS: BASOPHILS 0 % (0-2); EOSINOPHILS 2 % (0-7); LYMPHOCYTES 39 % (15-50); MONOCYTES 6 % (2-11); NEUTROPHILS 53 % (40-80); PLATELET ESTIMATE NORMAL
[2018-11-18 08:03] VITALS: BP 122/70
--- NOTE | 2018-11-18 09:17 | NUR ---
ALERT AND ORIENTED. ABDOMEN DISTENDED WITH HYPOACTIVE BS NOTEDX4. C/O ITCHING WITH BENEADRYL GIVEN PER ORDER.IVF INFUSING TO RT.IF AT 125CC/HR. NO UTICARIA NOTED AT THIS TIME. ENCOURAGED TO AMBULATE TODAY TO INCREASE GASTRIC MOTILITY AND STATED WOULD WALK WHEN RETURNED. ENCOURAGED TO USE CALL LIGHT FOR ASSSIT.
--- NOTE | 2018-11-18 10:30 | NUR ---
PT REFUSED ORDER FOR MILK OF MAGNESIUM. AND COMPLAINS OF ABD PAIN AND NAUSEA. DILAUDID AND ZOFRAN GIVEN PRN PER ORDER. IN ROOM.
--- NOTE | 2018-11-18 11:40 | NUR ---
PT UP AMBULATING IN HALLWAY WITH
[2018-11-18 12:10] VITALS: BP 142/82
--- NOTE | 2018-11-18 14:35 | NUR ---
ALERT AND ORIENTED X3. GOOD ROM ON EXTX4. LUNGS CTA AND ABD. SOFT WITH BS NOTED. NO OCCULT STOOL NOTED AT THIS TIME. BS NOTED X4. ENCOURAGD TO USE CALL LIGHT FOR ASSIST.
[2018-11-18 16:23] VITALS: BP 142/81
--- NOTE | 2018-11-18 17:35 | NUR ---
PT STATES HAS HAD 2 LOOSE BM TODAY. ABDOMEN STILL DISTENDED WITH NO C/O OF PAIN OR DISCOMFORT AT THIS TIME.
[2018-11-18 20:00] VITALS: BP 141/83
--- NOTE | 2018-11-18 23:30 | NUR ---
PT C/O ABDOMINAL AND BACK PAIN 10/10 AND NAUSEA. GAVE DILAUDID AND ZOFRAN IV PUSH. ASSESSMENT COMPLETE PER FLOW-SHEET. NO OTHER NEEDS. WILL CONTINUE TO MONITOR.
[2018-11-19] VITALS: BP 139/76; BP 159/63
[2018-11-19 03:00] VITALS: BP 130/69
[2018-11-19 05:50] LABS: ANION GAP 11.9 mmol/L (8-16); CALCIUM 7.9 mg/dL (8.5-10.1); CARBON DIOXIDE 27.3 mmol/L (21.0-32.0); POTASSIUM - SERUM 3.2 mmol/L (3.5-5.1)
[2018-11-19 05:56] LABS: BASOPHILS 0.6 % (0-2); EOSINOPHILS 1.1 % (0-7); HEMATOCRIT 32.9 % (36.0-48.0); HEMOGLOBIN 10.5 g/dL (12-16); IMMATURE GRANULOCYTES 8.9 % (0-5); LYMPHOCYTES 27.7 % (15-50); MCH 28.5 pg (26.0-34.0); MCHC 31.9 g/dL (31.0-37.0); MCV 89.4 fL (80.0-100.0); MEAN PLATELET VOLUME 10.2 fL (7.4-10.4); MONOCYTES 10.9 % (2-11); NEUTROPHILS 50.8 % (40-80); PLATELET COUNT 240 10x3/uL (130-400); RBC 3.68 10x6/uL (4.00-5.40); RDW 16.7 % (11.5-14.5)
[2018-11-19 05:57] LABS: CREATININE - SERUM 1.2 mg/dL (0.6-1.3); WBC 7.2 10x3/uL (4.8-10.8)
--- NOTE | 2018-11-19 07:44 | NUR ---
PT ALERT X 4. BREATH SOUNDS CLEAR BILAT. TELEMETRY IN PLACE. CENTRAL LINE TO RIGHT IJ. ABDOMEN DISTENDED AND FIRM. PT REPORTING PAIN OF 8/10 TO LEFT SIDE OF ABDOMEN, WILL MONITOR. BED LOW, CALL LIGHT IN REACH. NO OTHER NEEDS AT THIS TIME.
[2018-11-19 08:35] VITALS: BP 142/56
[2018-11-19 13:21] VITALS: BP 143/91
[2018-11-19 17:30] VITALS: BP 154/81
[2018-11-19 20:00] VITALS: BP 167/93
--- NOTE | 2018-11-19 20:07 | NUR ---
PT C/O ABDOMINAL PAIN 9/10 AND NAUSEA. GAVE DILAUDID AND ZOFRAN IV PUSH. GAVE SCHEDULED MEDS. PT DRINKING GO-LYTELY. REPORTS SOME LOOSE STOOLS. COMPLETE ASSESSMENT PER FLOW-SHEET. NO OTHER NEEDS. WILL CONTINUE TO MONITOR.
[2018-11-20 03:00] VITALS: BP 147/80
[2018-11-20 06:42] LABS: ANION GAP 10.5 mmol/L (8-16); CALCIUM 7.8 mg/dL (8.5-10.1); CARBON DIOXIDE 29.5 mmol/L (21.0-32.0); CREATININE - SERUM 1.1 mg/dL (0.6-1.3); MAGNESIUM - SERUM 2.2 mg/dL (1.8-2.4)
[2018-11-20 07:31] LABS: HEMATOCRIT 31.1 % (36.0-48.0); MCH 28.5 pg (26.0-34.0); MCHC 32.2 g/dL (31.0-37.0); MCV 88.6 fL (80.0-100.0); MEAN PLATELET VOLUME 10.4 fL (7.4-10.4); PLATELET COUNT 264 10x3/uL (130-400); RBC 3.51 10x6/uL (4.00-5.40); RDW 16.1 % (11.5-14.5)
[2018-11-20 08:44] VITALS: BP 161/81
[2018-11-20 08:56] LABS: EOSINOPHILS 1 % (0-7); LYMPHOCYTES 25 % (15-50); MONOCYTES 12 % (2-11); NEUTROPHILS 44 % (40-80); PLATELET ESTIMATE NORMAL
[2018-11-20 08:57] LABS: SMUDGE CELLS OCC; TOXIC GRANULATION OCC
[2018-11-20 13:15] VITALS: BP 185/98
[2018-11-20 16:30] VITALS: BP 165/101
[2018-11-20 21:35] VITALS: BP 145/87
[2018-11-21 04:44] VITALS: BP 155/84
[2018-11-21 07:26] LABS: ANION GAP 8.6 mmol/L (8-16); CALCIUM 7.8 mg/dL (8.5-10.1); CARBON DIOXIDE 27.9 mmol/L (21.0-32.0); CREATININE - SERUM 0.9 mg/dL (0.6-1.3); POTASSIUM - SERUM 3.5 mmol/L (3.5-5.1)
--- NOTE | 2018-11-21 08:16 | OP ---
PATIENT NAME: KRYSTAL MARIE MEDICAL RECORD: [id number] :72 LOCATION:D.MS [id number] ADMISSION DATE:11/14/18 SURGEON: DIOMEDES DE LEON MD DATE OF OPERATION: 11/17/2018 PREOPERATIVE DIAGNOSES: 1. Large bowel obstruction. 2. Acute kidney injury. 3. Hypertension. POSTOPERATIVE DIAGNOSES: 1. Large bowel obstruction. 2. Acute kidney injury. 3. Hypertension. PROCEDURE: Flexible sigmoidoscopy with dilatation to 60-Lao. SURGEON: Diomedes De Leon MD REPORT OF PROCEDURE: The patient was placed in the left lateral decubitus position. An Olympus endoscope was advanced through the anus. We encountered the rectum and there was immediately some thin stool that was present. We suctioned this out and then progressed up through the rectum to the sigmoid colon. At this point, we noticed that the sigmoid colon appeared to strictured down. It was soft and I could not clearly see any evidence of a staple line or anastomotic site, but as we passed through this strictured area, we encountered a large dilated colon proximally. This had some liquidy stool present within it, which was suctioned out. We progressed up to 60 cm and did not see any further strictures or lesions. As we pulled back a 60-Lao dilating balloon was inserted and this was used to dilate the strictured area in the large bowel in the distal sigmoid colon from 25-30 cm. This was done with ease with no signs of any trauma to the tissues. After the balloon was removed, we inspected the area one last time. It almost looked like a colonic structures were twisted in some way as if the anastomosis was done with the bowel twisted on itself. I did not see any evidence of any masses, lesions or ulcerations, but there were some inflammatory changes to the colon proximally. We eventually removed the insufflation from the colon and removed the endoscope. COMPLICATIONS: None. CONDITION: Stable. ANESTHESIA: TIVA. BLOOD LOSS: Minimal. TRANSINT:[id number] Voice Confirmation ID: [id number] DOCUMENT ID: [id number] OPERATIVE REPORT [id number] FRANKKRYSTAL DIOMEDES DE LEON MD at 0816 CC: [id number] DICTATION DATE: 11/17/18 0944 DRIER TRANSFER CAR OPERATOR: 11/17/18 1216 ADM IN [place] [address] [place] [address]
[2018-11-21 08:17] VITALS: BP 163/86
[2018-11-21 08:53] LABS: BASOPHILS 0.1 % (0-2); EOSINOPHILS 1.2 % (0-7); HEMATOCRIT 30.3 % (36.0-48.0); HEMOGLOBIN 9.8 g/dL (12-16); IMMATURE GRANULOCYTES 3.2 % (0-5); LYMPHOCYTES 24.1 % (15-50); MCH 28.7 pg (26.0-34.0); MCHC 32.3 g/dL (31.0-37.0); MCV 88.9 fL (80.0-100.0); MEAN PLATELET VOLUME 10.2 fL (7.4-10.4); MONOCYTES 12.5 % (2-11); NEUTROPHILS 58.9 % (40-80); PLATELET COUNT 246 10x3/uL (130-400); RBC 3.41 10x6/uL (4.00-5.40); RDW 16.1 % (11.5-14.5)
--- NOTE | 2018-11-21 09:59 | NUR ---
REFUSED TO EAT ANY BREAKFAST THIS AM. UP TO COMMODE PER SELF, HAD MODEST AMOUNT OF WATERY STOOL. WILL CONTINUE TO MONITOR.
[2018-11-21 12:48] VITALS: BP 160/94
[2018-11-21 16:34] VITALS: BP 154/90
--- NOTE | 2018-11-21 18:44 | NUR ---
RESTING QUIETLY IN BED. DENIES NEEDS. REPORTS PAIN IMPROVED AT THIS TIME. NO CHANGES NOTED.
[2018-11-21 21:12] VITALS: BP 130/56
[2018-11-22 05:09] VITALS: BP 115/66
--- NOTE | 2018-11-22 07:20 | NUR ---
PT RESTING IN BED WATCHING TV. NO ACUTE DISTRESS NOTED. REPORTS PAIN 8/10 AT THIS TIME. DISCUSSED NEXT TIME DOSE OF PAIN MEDICATION CAN BE ADMINISTERED. PT VOICES UNDERSTANDING. IJ INTACT TO RIGHT WITH NS @ 75ML/HR INFUSING VIA PUMP. DENIES FURTHER NEEDS AT THIS TIME. CL WITHIN REACH. ENCOURAGED TO CALL WITH NEEDS. CONTINUE POC
[2018-11-22 07:43] LABS: ANION GAP 13.2 mmol/L (8-16); CALCIUM 7.3 mg/dL (8.5-10.1); CREATININE - SERUM 0.9 mg/dL (0.6-1.3); POTASSIUM - SERUM 3.2 mmol/L (3.5-5.1)
[2018-11-22 08:14] LABS: BASOPHILS 0.1 % (0-2); EOSINOPHILS 1.6 % (0-7); HEMOGLOBIN 8.8 g/dL (12-16); IMMATURE GRANULOCYTES 1.2 % (0-5); LYMPHOCYTES 24.5 % (15-50); MCH 29.1 pg (26.0-34.0); MCHC 32.6 g/dL (31.0-37.0); MCV 89.4 fL (80.0-100.0); MEAN PLATELET VOLUME 10.2 fL (7.4-10.4); MONOCYTES 9.2 % (2-11); NEUTROPHILS 63.4 % (40-80); RBC 3.02 10x6/uL (4.00-5.40); WBC 6.9 10x3/uL (4.8-10.8)
[2018-11-22 08:15] LABS: PLATELET COUNT 161 10x3/uL (130-400)
[2018-11-22 09:35] VITALS: BP 137/44
[2018-11-22 18:01] VITALS: BP 136/79
[2018-11-22 21:11] VITALS: BP 149/90
[2018-11-23 01:32] VITALS: BP 154/80
[2018-11-23 05:18] VITALS: BP 147/84
[2018-11-23 06:50] LABS: BASOPHILS 0.2 % (0-2); EOSINOPHILS 1.7 % (0-7); HEMATOCRIT 28.8 % (36.0-48.0); HEMOGLOBIN 9.3 g/dL (12-16); IMMATURE GRANULOCYTES 0.8 % (0-5); LYMPHOCYTES 25.6 % (15-50); MCH 28.4 pg (26.0-34.0); MCHC 32.3 g/dL (31.0-37.0); MCV 88.1 fL (80.0-100.0); MEAN PLATELET VOLUME 9.8 fL (7.4-10.4); NEUTROPHILS 63.7 % (40-80); RBC 3.27 10x6/uL (4.00-5.40); RDW 16.2 % (11.5-14.5); WBC 6.4 10x3/uL (4.8-10.8)
[2018-11-23 06:54] LABS: PLATELET COUNT 226 10x3/uL (130-400)
[2018-11-23 07:06] LABS: ANION GAP 12.1 mmol/L (8-16); CALCIUM 7.5 mg/dL (8.5-10.1); CREATININE - SERUM 0.9 mg/dL (0.6-1.3); POTASSIUM - SERUM 3.1 mmol/L (3.5-5.1)
[2018-11-23 08:45] VITALS: BP 156/76
--- NOTE | 2018-11-23 12:05 | MORECARE ---
CASE MANAGEMENT DISCHARGE SUMMARY PATIENT: KRYSTAL MAR UNIT: [id number] ADM DATE: 11/14/18 AGE: 48 : 72 SEX: F ROOM/BED: D.2206 AUTHOR: JOSSYDOC PHYSICIAN: REFERRING PHYSICIAN: CRYSTAL ESCOBAR MD DATE OF SERVICE: 11/23/18 Discharge Plan Patient Name: KRYSTAL MAR Facility: [facility]:[place] : 1970 Planned Disposition: Home Anticipated Discharge Date: 11/17/18 Discharge Date: Expected LOS: 3 Initial Reviewer: [id number] Initial Review Date: 11/14/2018 Generated: 11/23/18 1:05 pm Comments DCP- Discharge Planning Updated by [email or web address]: Zulema Cruz on 11/23/18 11:[address] Patient will be discharging home today. Denies any needs. Family at bedside DCP- Discharge Planning Updated by [email or web address]: Mayda Blanco on 11/14/18 3:[address] Patient Name: KRYSTAL MAR Admission Status: ER Accout number: [id number] Admission Date: 11-14-2018 : 1970 Admission Diagnosis: Attending: CRYSTAL ESCOBAR Current LOS: 1 Anticipated DC Date: 11-17-2018 Planned Disposition: Home Primary Insurance: [employer] PPO Discharge Planning Comments: CM met with patient to complete initial dc planning assessment. CM educated patient on the CM role and verbal consent given by patient to complete assessment. Patient lives at home with her independently. At discharge patient plans to return home with her and feels this is a safe discharge. CM discussed availability of home health, rehab services, and medical equipment. Patient denied known discharge needs at this time. CM will continue to follow and will assist as needed with dc plans/needs. Pinsetter Mechanic Helper: Mayda Blanco RN, [facility] DCPIA - Discharge Planning Initial Assessment Updated by [email or web address]: Mayda Blanco on 11/14/18 4:13 pm * Is the patient Alert and Oriented? Yes * How many steps to enter\exit or inside your home? None * PCP Don't have a pcp * [facility] [address] * Preadmission Environment Home with Family * ADLs Independent * Equipment None * List name and contact numbers for known caregivers / representatives who currently or will assist patient after discharge: Kaden Mar - spouse - [phone] * Verbal permission to speak to the caregivers and representatives has been obtained from the patient. Yes * Community resources currently utilized None * Additional services required to return to the preadmission environment? No * Can the patient safely return to the preadmission environment? Yes * Has this patient been hospitalized within the prior 30 days at any hospital? No Last DP export: 11/14/18 3:23 p Patient Name: KRYSTAL MAR Page [phone] at 1205 All edits/amendments must be made on the electronic document DICTATION DATE: 11/23/181203 PADDED PRODUCTS INSPECTOR TRIMMER: MICHAEL 11/23/181203 RPT#: [id number] DC DATE: STATUS: ADM IN [facility] [address] [place] [address] END OF REPORT
[2018-11-23 14:41] VITALS: BP 110/83
--- NOTE | 2018-11-23 17:19 | NUR ---
RADIOLOGIST CONTACTED NURSING STAFF WITH [facility] REGARDING PT EARLIER CT SCAN. CONTACTED [facility] REGARDING RESULTS, SHE REQUESTED DR. DE LEON BE CONTACTED REGARDING REPORT. DR. DE LEON CONTACTED AND INFORMED OF [facility] REGARDING CT SCAN. INFORMED DR. DE LEON CT REPORT HAD NOT BEEN PROCESSED IN THE SYSTEM OF THIS TIME. NO NEW ORDERS AT THIS TIME
[2018-11-23 21:00] VITALS: BP 133/55
--- NOTE | 2018-11-24 03:49 | NUR ---
I CONCUR WITH POSITION CLASSIFIER ASSESSMENT.
[2018-11-24 04:36] VITALS: BP 128/78
[2018-11-24 05:27] LABS: BASOPHILS 0.2 % (0-2); EOSINOPHILS 1.7 % (0-7); HEMOGLOBIN 8.9 g/dL (12-16); IMMATURE GRANULOCYTES 0.6 % (0-5); LYMPHOCYTES 28.8 % (15-50); MCH 28.2 pg (26.0-34.0); MCHC 31.8 g/dL (31.0-37.0); MCV 88.6 fL (80.0-100.0); MEAN PLATELET VOLUME 10.4 fL (7.4-10.4); MONOCYTES 10.4 % (2-11); NEUTROPHILS 58.3 % (40-80); PLATELET COUNT 213 10x3/uL (130-400); RBC 3.16 10x6/uL (4.00-5.40); RDW 16.1 % (11.5-14.5); WBC 5.3 10x3/uL (4.8-10.8)
[2018-11-24 05:43] LABS: ANION GAP 9.6 mmol/L (8-16); CALCIUM 7.2 mg/dL (8.5-10.1); CARBON DIOXIDE 27.7 mmol/L (21.0-32.0); CREATININE - SERUM 0.9 mg/dL (0.6-1.3); POTASSIUM - SERUM 3.3 mmol/L (3.5-5.1)
[2018-11-24 09:15] VITALS: BP 154/78
[2018-11-24] MEDS ORDERED: FLORAJEN3 CAPS460 MG PO (10:40)
[2018-11-24] MEDS ORDERED: oxyCODONE IR PO (10:41)
--- NOTE | 2018-11-24 13:11 | NUR ---
RIGHT IJ REMOVED AFTER SUTURES CUT. BIOPATCH AND OCCLUSIVE DRESSING APPLIED AFTER 10 MIN PRESSURE HELD. HOB FLAT DURING PROCEDURE AND FOR 20 MIN AFTER. PT INSTRUCTED TO LIE FLAT FOR 20 MIN. FAMILY AT BEDSIDE.
[2018-11-24] MEDS ORDERED: ZOFRAN ODT4 MG/UDTAB PO (14:31)
--- NOTE | 2018-11-24 14:33 | NUR ---
DISCHARGE INSTRUCTIONS GIVEN. VERBALIZED UNDERSTANDING. CAME TO THE DESK TO ASK ABOUT SOMETHING FOR NAUSEA. TALKED TO PURVI GONZALEZ WHO ESCRIBED BOB RODRIGUEZ. TOLD PATIENT ABOUT NEW MEDICATION
--- NOTE | 2018-11-27 13:46 | MORECARE ---
CASE MANAGEMENT DISCHARGE SUMMARY PATIENT: KRYSTAL MAR UNIT: [id number] ADM DATE: 11/14/18 AGE: 48 : 72 SEX: F ROOM/BED: D.2206 AUTHOR: JOSSYDOC PHYSICIAN: REFERRING PHYSICIAN: CRYSTAL ESCOBAR MD DATE OF SERVICE: 11/27/18 Discharge Plan Patient Name: KRYSTAL MAR Facility: [facility]:[place] : 1970 Planned Disposition: Home Anticipated Discharge Date: 11/17/18 Discharge Date: 11/24/2018 Expected LOS: 3 Initial Reviewer: [email or web address] Initial Review Date: 11/14/2018 Generated: 11/27/18 2:46 pm Comments DCP- Discharge Planning Updated by [email or web address]: Zulema Cruz on 11/23/18 11:[address] Patient will be discharging home today. Denies any needs. Family at bedside DCP- Discharge Planning Updated by [id number]: Mayda Blanco on 11/14/18 3:[address] Patient Name: KRYSTAL MAR Admission Status: ER Accout number: [id number] Admission Date: 11-14-2018 : 1970 Admission Diagnosis: Attending: CRYSTAL ESCOBAR Current LOS: 1 Anticipated DC Date: 11-17-2018 Planned Disposition: Home Primary Insurance: [employer] PPO Discharge Planning Comments: CM met with patient to complete initial dc planning assessment. CM educated patient on the CM role and verbal consent given by patient to complete assessment. Patient lives at home with her independently. At discharge patient plans to return home with her and feels this is a safe discharge. CM discussed availability of home health, rehab services, and medical equipment. Patient denied known discharge needs at this time. CM will continue to follow and will assist as needed with dc plans/needs. Plasticator: Mayda Blanco RN, [facility] DCPIA - Discharge Planning Initial Assessment Updated by [email or web address]: Mayda Blanco on 11/14/18 4:13 pm * Is the patient Alert and Oriented? Yes * How many steps to enter\exit or inside your home? None * PCP Don't have a pcp * [facility] [address] * Preadmission Environment Home with Family * ADLs Independent * Equipment None * List name and contact numbers for known caregivers / representatives who currently or will assist patient after discharge: Kaden Mar - spouse - [phone] * Verbal permission to speak to the caregivers and representatives has been obtained from the patient. Yes * Community resources currently utilized None * Additional services required to return to the preadmission environment? No * Can the patient safely return to the preadmission environment? Yes * Has this patient been hospitalized within the prior 30 days at any hospital? No Last DP export: 11/23/18 11:05 am Patient Name: KRYSTAL MAR Page 54425 at 1346 All edits/amendments must be made on the electronic document DICTATION DATE: 11/27/18 1346 CENTRIFUGAL CASTING MACHINE OPERATOR: MICHAEL 11/27/18 1346 RPT#: [id number] DC DATE:11/24/18 STATUS: DIS IN [facility] [address] [place] [address] END OF REPORT
== END 2018-11-24 14:35 | disposition home or self-care, planned readmission (81) | DRG 394 ==
LOC: D.ER 11:16 → D.MS 15:01 → D.EDHOLD 15:01 → D.MS 17:33 → D.SDCHOLD 11-17 10:48 → D.MS 11-17 10:51
PROVIDERS: Family Medicine; Surgery; ADMIT Internal Medicine Nephrology; ATTEND Internal Medicine Nephrology
PROC: 0D7N8ZZ Dilation of Sigmoid Colon, Via Natural or Artificial Opening Endoscopic (ICD-10-PCS; principal; 2018-11-17 09:00)
DX: K91.89 Other postprocedural complications and disorders of digestive system (principal); K56.609 Unspecified intestinal obstruction, unspecified as to partial versus complete obstruction; N39.0 Urinary tract infection, site not specified; N17.9 Acute kidney failure, unspecified; E87.6 Hypokalemia; I10 Essential (primary) hypertension

== ENCOUNTER 2018-11-28 09:31 | Inpatient (IN) | payer OTHER ==
[~2018-11-28] VITALS: Ht 160 cm; Wt 99.8 kg
[~2018-11-28 09:31] MED LIST changes: +FLORAJEN3 CAPS460 MG PO; +ZOFRAN ODT4 MG/UDTAB PO; +oxyCODONE IR PO
[2018-11-28 10:06] LABS: BASOPHILS 0.2 % (0-2); EOSINOPHILS 0.6 % (0-7); HEMATOCRIT 29.4 % (36.0-48.0); HEMOGLOBIN 9.4 g/dL (12-16); IMMATURE GRANULOCYTES 0.4 % (0-5); MCH 28.1 pg (26.0-34.0); MEAN PLATELET VOLUME 9.4 fL (7.4-10.4); MONOCYTES 19.5 % (2-11); NEUTROPHILS 44.3 % (40-80); RBC 3.34 10x6/uL (4.00-5.40); RDW 15.6 % (11.5-14.5)
[2018-11-28 10:15] LABS: PLATELET COUNT 299 10x3/uL (130-400)
[2018-11-28 10:17] LABS: ANION GAP 10.5 mmol/L (8-16); CALCIUM 7.6 mg/dL (8.5-10.1); CARBON DIOXIDE 29.7 mmol/L (21.0-32.0); CREATININE - SERUM 1.5 mg/dL (0.6-1.3); POTASSIUM - SERUM 3.2 mmol/L (3.5-5.1)
[2018-11-28] MEDS ORDERED: ZANTAC300 MG PO (10:39)
[2018-11-28] MEDS ORDERED: CHLORTHALIDONE25 MG PO (10:39)
[2018-11-28] MEDS ORDERED: BUSPAR 15 MG TA15 MG PO (10:40)
[2018-11-28] MEDS ORDERED: TOPAMAX50 MG PO (10:41)
[2018-11-28 10:49] VITALS: BP 107/60; BMI 39.0
--- NOTE | 2018-11-28 18:48 | NUR ---
1848: PORTABLE XRAY TAKEN WITH PATIENT ON OR TABLE TO CONFIRM THAT NO SPONGE OR INSTRAMENT WAS LEFT IN THE PATIENT. PER DR DE LEON, NO SPONGES OR INSTRAMENTS SEEN.
[2018-11-28 20:26] VITALS: BP 133/65
[2018-11-28 20:43] VITALS: BP 131/81
[2018-11-28 23:45] VITALS: BP 113/65; BMI 39.0
--- NOTE | 2018-11-29 04:59 | NUR ---
PATIENT ALERT AND ORENTED RESPONDS WNL B/P HAS RUN A DOWNWARD TREND A S LOW CALL TO DR. IRVING ORDER FOR ONE TIME BOLUS OF 1000ML NS. GIVEN B/P ON UPWARD TRIND AT 0500
[2018-11-29 05:59] VITALS: BP 97/55
[2018-11-29 06:12] LABS: HEMATOCRIT 33.3 % (36.0-48.0); MCH 27.5 pg (26.0-34.0); MEAN PLATELET VOLUME 10.1 fL (7.4-10.4); RDW 17.1 % (11.5-14.5)
[2018-11-29 06:13] LABS: MCV 83.3 fL (80.0-100.0); PLATELET COUNT 187 10x3/uL (130-400); WBC 6.3 10x3/uL (4.8-10.8)
[2018-11-29 07:13] LABS: ANION GAP 13.3 mmol/L (8-16); CARBON DIOXIDE 24.3 mmol/L (21.0-32.0); MAGNESIUM - SERUM 1.3 mg/dL (1.8-2.4); PHOSPHOROUS 4.5 mg/dL (2.5-4.9); POTASSIUM - SERUM 3.6 mmol/L (3.5-5.1)
[2018-11-29 07:45] LABS: CREATININE - SERUM 2.5 mg/dL (0.6-1.3)
--- NOTE | 2018-11-29 07:45 | NUR ---
ASSESSMENT PER FLOW SHEET. PT IS WITHOUT DISTRESS. MEDS ORDERED PE MAR FOR PAIN.MONITOR
[2018-11-29 07:47] LABS: CALCIUM 6.5 mg/dL (8.5-10.1)
[2018-11-29 08:01] LABS: LYMPHOCYTES 36 % (15-50); MONOCYTES 18 % (2-11); NEUTROPHILS 34 % (40-80); PLATELET ESTIMATE NORMAL
[2018-11-29 09:41] VITALS: BP 114/45
[2018-11-29 11:39] LABS: HCG SERUM NEGATIVE (NEGATIVE)
--- NOTE | 2018-11-29 12:21 | OP ---
PATIENT NAME: KRYSTAL MARIE MEDICAL RECORD: [id number] :[birth year] LOCATION:D[facility] [place] ADMISSION DATE:11/28/18 SURGEON: RADHA ACOSTA MD DATE OF OPERATION: 11/28/2018 SURGEON: Radha Acosta MD. NEGATIVE SPOTTER: Diomedes Jason MD ANESTHESIA: General by Jose Raul Malhotra CRNA DIAGNOSES: Complete transection of left distal ureter. Bowel obstruction. PROCEDURES: Cystoscopy, left ureteral stent insertion of 6-Citizen Of [place] x 22 cm without string attached, and left ureteral primary anastomosis repair. FINDINGS: Complete transection of the distal ureter at the region of the common iliac artery crossing. Proximal ureter was completely scarred into the retroperitoneum. The distal ureter was freely mobile. On cystoscopy, no bladder injury was seen and there were no bladder tumors. There were single ureteral orifices bilaterally. There was methylene blue seen coming from the right ureter. On x-ray, left ureteral stent is in correct position. SPECIMENS: None. BLOOD LOSS: None. CLINICAL HISTORY: This is a 48-year-old female who had a hysterectomy and colon resection in the past. 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 Dr. Jason today is attempting to resect some of the scarred bowel and perform a primary bowel anastomosis to relieve the bowel obstruction. During the surgery, he discovered that the left ureter had been completely transected. He requested urological assistance in consultation in order to repair the left ureter. Due to the degree of scarring in the pelvis, I could not mobilize the bladder to perform psoas hitch and ureteral reimplantation. The bladder itself was scarred into the pelvis. The proximal ureter was also scarred into the retroperitoneum. At this point, we will have to attempt a primary anastomosis of the ureter to the distal ureter. There is a high risk of ureteral stricture occurrence from this, but we will have to accept this risk. Initially, I placed a Sensor wire up the proximal ureteral stump up into the renal pelvis. Over the wire, I inserted a 6-[place]izen [place] x 22-cm ureteral stent. I was also able to mobilize the stump of the proximal ureter from the retroperitoneal scar using Metzenbaum scissors. This would give me enough space to do an anastomosis. The anterior wall of the proximal ureter was spatulated along its longitudinal axis for a distance of about 5 mm. The problem then became how to get the distal end of the stent down the distal ureter. I had to resort to cystoscopy. Cystoscopic findings are as outlined above. There was no injury to the right ureter as we can see jets of methylene blue coming out of the right ureteral orifice. Into the left ureteral orifice, I inserted the Sensor wire. Dr. Jason then grabbed the Sensor wire when it came out of the distal ureteral stump. This wire was then fed into the distal end of the ureteral stent and eventually up into the more proximal part of the ureter. The stent was then gradually pushed down into the bladder over the wire. I could see the stent emerging over the wire with OPERATIVE REPORT [id number] KRYSTAL MARIE cystoscope. I then had an senior care assistant hold the cystoscope and the wire in place while we performed the ureteral anastomosis. The distal ureteral stump was spatulated longitudinally for a distance of 5 mm on its posterior wall. This would give us an overlapping spatulated anastomosis. Monocryl 4-0 sutures were used in simple interrupted fashion to perform the ureteral anastomosis. We used a total of about, I think, 8 sutures placed equally distant along the circumference. I did not see any further urinary leakage from the ureteral anastomosis. At the end of this part of the procedure, I asked for x-rays. The patient is not on an x-ray table. Therefore, we had to put up x-ray plate under the patient. An x-ray showed that the proximal end of the ureteral stent was indeed within the kidney, and as I had withdrawn the wire slightly prior to taking the x-ray, the ureteral stent had coiled in the renal pelvis. Using a pusher, I kept the stent in position while the wire was entirely withdrawn. The distal end of the stent then coiled up in the bladder. The scope was then removed. I inserted a 16-Citizen [place] Cortez catheter back into the patient's bladder. This was put to bag drainage. The Cortez catheter balloon was inflated with 10 cc of sterile water. The patient will need to keep the catheter for a period of 2 weeks. We will then obtain a cystogram. The contrast from the cystogram will also reflux up the ureter and we can see if any ureteral anastomotic leak is likely to be present. If no leakage is seen, then I will arrange for her to have cystoscopy and left ureteral stent removal at that time. TRANSINT:[id number] Voice Confirmation ID: [id number] DOCUMENT ID: [id number] RADHA ACOSTA MD at 1221 CC: [id number] DICTATION DATE: 11/28/181816 BOSS DYER: 11/28/18 223 ADM IN [place] [id number] [place] [id number]
--- NOTE | 2018-11-29 13:45 | NUR ---
SPOKE WITH DR MOISES GODDARD.. LOW BP AND URINE OUTPUT. ORDERS RECIEVED AND INITIATED
[2018-11-29 15:09] VITALS: BP 89/48; Ht 160 cm; Wt 99.8 kg
--- NOTE | 2018-11-29 16:03 | NUR ---
SPOKE WITH SARAH GODDARD. PT REQUESTING MORE PAIN MEDS.I EXPLAINED TO PT TO USE HER CONDUIT BENDER. SHE HAS BEEN DECLINING USE OF CONDUIT BENDER MOST OF DAY.SARAH TO CALL BACK WITH ORDERS
--- NOTE | 2018-11-29 17:09 | NUR ---
MEDS ORDERED FOR PAIN. SPOKE WITH RICH IN PHARMACY ABOUT POSS OPTIONS FOR DEMEROL MARBLE CUTTER. DEMEROL MARBLE CUTTER IS NO LONGER AVAILABLE.
[2018-11-29 17:54] VITALS: BP 91/49
--- NOTE | 2018-11-29 19:53 | NUR ---
PAIN A LITTLE BETTER. BP 100/50. PT HAS SET UP AT BEDSIDE.SHE IS WITHOUT CHANGE FROM INITIAL SHIFT ASSESSMENT. CONT PLAN OF CARE
[2018-11-29 22:22] VITALS: BP 94/40
--- NOTE | 2018-11-29 22:58 | NUR ---
BOLUS DOSE OF 0.8 AT 2258
--- NOTE | 2018-11-30 01:20 | NUR ---
DRESSING CHANGED TO RIGHT IJ PER PROTOCOL. NO S/S OF DISTRESS
[2018-11-30 05:00] LABS: BASOPHILS 0.1 % (0-2); EOSINOPHILS 0.3 % (0-7); HEMATOCRIT 27.4 % (36.0-48.0); IMMATURE GRANULOCYTES 1.8 % (0-5); LYMPHOCYTES 12.1 % (15-50); MCH 27.4 pg (26.0-34.0); MCHC 32.8 g/dL (31.0-37.0); MCV 83.5 fL (80.0-100.0); MEAN PLATELET VOLUME 10.2 fL (7.4-10.4); MONOCYTES 11.3 % (2-11); NEUTROPHILS 74.4 % (40-80); PLATELET COUNT 186 10x3/uL (130-400); RBC 3.28 10x6/uL (4.00-5.40); RDW 17.2 % (11.5-14.5)
[2018-11-30 05:06] LABS: WBC 9.3 10x3/uL (4.8-10.8)
[2018-11-30 05:08] LABS: ANION GAP 13.4 mmol/L (8-16); CARBON DIOXIDE 23.4 mmol/L (21.0-32.0); CREATININE - SERUM 2.3 mg/dL (0.6-1.3); PHOSPHOROUS 5.4 mg/dL (2.5-4.9); POTASSIUM - SERUM 3.8 mmol/L (3.5-5.1)
[2018-11-30 05:12] LABS: CALCIUM 6.5 mg/dL (8.5-10.1); MAGNESIUM - SERUM 2.3 mg/dL (1.8-2.4)
[2018-11-30 05:16] VITALS: BP 127/63
--- NOTE | 2018-11-30 07:48 | NUR ---
PT RESTING IN BED. SPOKE WITH PT ABOUT GETTING UP TODAY. NO S/S OF ACUTE DISTRESS. CL IN PLACE.
[2018-11-30 08:36] VITALS: BP 104/55
[2018-11-30 11:05] VITALS: BP 110/54
[2018-11-30 12:07] VITALS: BP 121/63
[2018-11-30 16:45] VITALS: BP 109/55
--- NOTE | 2018-11-30 18:33 | NUR ---
PT RESTING IN BED. NO S/S OF ACUTE DISTRESS. CL IN PLACE.
[2018-11-30 21:08] VITALS: BP 144/79
[2018-12-01 01:01] VITALS: BP 152/79
[2018-12-01 05:19] VITALS: BP 153/81
[2018-12-01 06:13] LABS: ANION GAP 13.3 mmol/L (8-16); CARBON DIOXIDE 23.6 mmol/L (21.0-32.0); CREATININE - SERUM 1.3 mg/dL (0.6-1.3); MAGNESIUM - SERUM 2.4 mg/dL (1.8-2.4); PHOSPHOROUS 3.4 mg/dL (2.5-4.9); POTASSIUM - SERUM 3.9 mmol/L (3.5-5.1)
[2018-12-01 07:23] LABS: HEMATOCRIT 26.4 % (36.0-48.0); HEMOGLOBIN 8.9 g/dL (12-16); LYMPHOCYTES 13.3 % (15-50); MCHC 33.7 g/dL (31.0-37.0); NEUTROPHILS 81.4 % (40-80); PLATELET COUNT 191 10x3/uL (130-400); RBC 3.07 10x6/uL (4.00-5.40); RDW 17.4 % (11.5-14.5); WBC 8.5 10x3/uL (4.8-10.8)
--- NOTE | 2018-12-01 08:03 | OP ---
PATIENT NAME: KRYSTAL MARIE MEDICAL RECORD: [id number] :72 LOCATION:[facility] [place] ADMISSION DATE:11/28/18 SURGEON: DIOMEDES DE LEON MD DATE OF OPERATION: 11/28/2018 PREOPERATIVE DIAGNOSES: 1. Chronic large bowel obstruction. 2. Hypertension. 3. Asthma. 4. Morbid obesity. POSTOPERATIVE DIAGNOSES: 1. Chronic large bowel obstruction. 2. Hypertension. 3. Asthma. 4. Morbid obesity. PROCEDURES: 1. Hand-assisted laparoscopic converted to open sigmoid colectomy/LAR. 2. Repair of left ureteral injury over stent. 3. Diverting loop ileostomy. 4. Lysis of adhesions. SURGEON: Diomedes De Leon MD ASSISTANTS: Bebeto Loera MD with urology REPORT OF OPERATION: The patient's abdomen was prepped and draped in sterile fashion. A cutdown was made in the suprapubic region in the midline. Electrocautery was used to dissect through the subcutaneous tissues to the fascia. The fascia was opened up and we entered the abdominal cavity. A GelPort was inserted with a 5-mm trocar within it. With this GelPort, we were able to insufflate the abdomen and placed another 5-mm trocar in the right lateral abdomen. I placed my hand in the abdomen to perform some lysis of adhesions. The adhesions were very dense throughout the abdomen and the patient, having a chronic large bowel obstruction, had multiple dilated loops of thickened small bowel and colon. I elected just to open up the patient at this point. A large midline incision was performed using her old incisions. A tedious lysis of adhesions was performed of thick dense adhesions throughout the abdomen. These adhesions were mainly of the small bowel to itself and surrounding structures. The small bowel was protected through this portion of the procedure and there was no evidence of an injury to the small bowel at any point during the procedure. Once we had the small bowel completely freed up from the ligament of Treitz to the terminal ileum, we could see the right colon and cecum and this appeared to be normal other than it was dilated. The patient did have an old rgxe-ro-aemx anastomosis in the proximal small bowel that was well healed with dilated. The patient had no evidence of stricture or obstruction in the small bowel and the small bowel looked viable. We were able to visualize the patient's sigmoid colon and this was markedly dilated. As we came down towards the pelvis, the colon dipped down into the pelvis, which was very firm. There were no planes visible. We went ahead and used electrocautery to try and dissect around the rectum. On a couple of instances, we penetrated the right side of the rectum. I eventually just transected the bowel along its dilated proximal portion and evacuated some of the contents including the succuss and the air. With this, I was able to penetrate the strictured aspect OPERATIVE REPORT [id number] KRYSTAL MARIE that was going through this firm area of the pelvis. It was a very tight stricture, but I was able to penetrate this with my finger and get down to what appeared to be more normal-appearing distal rectum. We continued our dissection down around the rectum, getting into the posterior avascular plane and extending down deep into the pelvis. I eventually was able to dissect the bowel completely off all surrounding structures, and while doing this, I noticed a tubular structure present adherent to the left side of the bowel. This tubular structure was consistent with the left ureter. We were able to find the proximal aspect of the ureter and this had been transected right at the pelvic inlet. At this point, Dr. Loera was consulted intraoperatively for repair of the left ureter. He performed cystoscopy and was able to repair the left ureter over a 22 double pigtail stent. The stent was noted on x-ray to be in good position. The ureter was repaired over the stent using multiple interrupted 4-0 Monocryls. With this completed, the proximal aspect of the rectum where the stenosis was present was attempted to be removed using a 30 blue load TIA stapler, but I never could get the stapler down in the pelvis and around the tissues. I elected just to transect the rectum on its midportion and oversewed this portion of the rectum using running 2-0 Prolenes. The proximal aspect of the colon was then affixed with a 31 EEA anvil and tied down with a 2-0 Prolene pursestring. An end-to-end anastomosis was performed with the EEA stapler through the rectum, and at the conclusion of this, we had 2 large rings of complete tissue present in the stapler. We then checked the staple line under water by instilling air into the rectum and there was no evidence of a leak present with the rectal anastomosis under water. At this point, we irrigated out the abdomen thoroughly with normal saline. A 19-Thai Mark drain was inserted through the left lower quadrant and placed in the pelvis. This was sutured into place with 3-0 nylon. Opening was made in the right lateral abdomen and a loop of the distal small bowel was eviscerated through this wound. The wound was opened up through the anterior and posterior layers of the fascia using electrocautery. This section of bowel was opened up longitudinally, and at this point, we milked a lot of the small bowel contents through the ostomy out into a bag. This was to alleviate a lot of distention of the bowel which was making it very difficult for it to even go back into the abdominal cavity. Once we had milked out the succuss and the air, the bowel easily fell back into the abdominal cavity. We had inspected the bowel one last time during this portion of the procedure and saw no evidence of any injury to the bowel. The ostomy was left in position with a 14-Thai red rubber catheter as a bridge and this was tied over on itself using 3-0 silk. The midline fascia was then closed with running #1 loop PDS's times 2. We irrigated out the wound thoroughly with normal saline. The patient had a large scar present that was pulling down her skin towards the midline. We performed a scar revision by removing this scar tissue down to normal-appearing fatty tissue. This fatty tissue was then reapproximated in the midline using running 3-0 Vicryl. The skin was then closed with devaughn. The ostomy was then matured with multiple interrupted 4-0 Vicryls and an ostomy appliance was placed. The midline incision was then dressed appropriately. COMPLICATIONS: Left ureteral injury. CONDITION: Stable. ANESTHESIA: General endotracheal. BLOOD LOSS: 600 mL. OPERATIVE REPORT [id number] KRYSTAL MARIE TRANSINT:[id number] Voice Confirmation ID: [id number] DOCUMENT ID: [id number] cc: Dinorah Joshua APN DIOMEDES DE LEON MD at 0803 CC: DINORAH JOSHUA APN [id number] DICTATION DATE: 11/28/181923 FRONT DESK AUXILIARY: 11/28/189 ADM IN [place] [id number] [place] [address]
[2018-12-01 08:31] VITALS: BP 144/76
--- NOTE | 2018-12-01 12:21 | NUR ---
Nutrition Consult: Consult received to start TPN. Per chart pt is POD 3. Will put order in to start TPN @ 40 ml/hr with Lipids. Will put order in to decrease rate of IV fluids to 60 ml/hr. Please make MD aware. RD will continue to monitor pt progress.
[2018-12-01 13:02] VITALS: BP 128/77
--- NOTE | 2018-12-01 13:35 | NUR ---
Written information on living with an ileostomy given to pt and her mother. Also lists and information on suppliers of products and the local ostomy support group. Pt has had a colostomy in the past and is very familiar with the care of the stoma and skin and application of appliances. The stoma is red and shiny and there is a small amount of watery drainage in the bag. Wound care continues to monitor.
--- NOTE | 2018-12-01 15:36 | MORECARE ---
CASE MANAGEMENT DISCHARGE SUMMARY PATIENT: KRYSTAL MAR UNIT: [id number] ADM DATE: 11/28/18 AGE: 48 : 72 SEX: F ROOM/BED: D.2222 AUTHOR: SELINA FENTON PHYSICIAN: REFERRING PHYSICIAN: TIM DE LEON MD DATE OF SERVICE: 12/01/18 Discharge Plan Patient Name: KRYSTAL MAR Facility: [facility]:[place] : 1970 Planned Disposition: Home Anticipated Discharge Date: Discharge Date: Expected LOS: Initial Reviewer: [email or web address] Initial Review Date: 12/01/2018 Generated: 12/01/18 4:36 pm DCPIA - Discharge Planning Initial Assessment Updated by [id number]: Emelia Manzo on 12/01/18 3:35 pm * Is the patient Alert and Oriented? Yes * How many steps to enter\exit or inside your home? 0/0 * PCP Dinorah Calvert at Dr. Ribera's office * [facility] * Preadmission Environment Home with Family * ADLs Independent * Equipment None * List name and contact numbers for known caregivers / representatives who currently or will assist patient after discharge: Kaden Mar - - [phone] Kena Greer - mother - [phone] * Verbal permission to speak to the caregivers and representatives has been obtained from the patient. Yes * Community resources currently utilized None * Additional services required to return to the preadmission environment? Yes * Can the patient safely return to the preadmission environment? Yes * Has this patient been hospitalized within the prior 30 days at any hospital? Yes Coverage Notice Reviewer: [email or web address] - Emelia Manzo Notice Issued Date-Time: 12/01/2018 15:31 Notice Type: Patient Choice Letter Notice Delivered To: Patient Relationship to Patient: Stone Paver Name: Delivery Method: HAND - Hand Delivered Kathrin Days: Prior Verbal Notification: Recipient Understood Notice: Yes Recipient Signature: Yes Med Rec Note Co-signed by Attending: Coverage Notice Comment: SUSIE for 1. [place] 2. Lizzy Patient Name: KRYSTAL MAR Page 22475 at 1536 All edits/amendments must be made on the electronic document DICTATION DATE: 12/01/181535 ELECTRICAL CALIBRATOR: MICHAEL 12/01/181535 RPT#: [id number] DC DATE: STATUS: ADM IN [facility] [address] [place] [address] END OF REPORT
--- NOTE | 2018-12-01 15:46 | MORECARE ---
CASE MANAGEMENT DISCHARGE SUMMARY PATIENT: KRYSTAL MAR UNIT: [id number] ADM DATE: 11/28/18 AGE: 48 : 72 SEX: F ROOM/BED: D.2222 AUTHOR: JOSSYDOC PHYSICIAN: REFERRING PHYSICIAN: TIM DE LEON MD DATE OF SERVICE: 12/01/18 Discharge Plan Patient Name: KRYSTAL MAR Facility: [facility]:[place] : 1970 Planned Disposition: Home Anticipated Discharge Date: Discharge Date: Expected LOS: Initial Reviewer: [email or web address] Initial Review Date: 12/01/2018 Generated: 12/01/18 4:46 pm Comments DCP- Discharge Planning Updated by [email or web address]: Emelia Manzo on 12/01/18 2:[address] Patient Name: KRYSTAL MAR Admission Status: Elective Accout number: [id number] Admission Date: 11-28-2018 : 1970 Admission Diagnosis: Attending: TIM DE LEON Current LOS: 3 Anticipated DC Date: Planned Disposition: Home Primary Insurance: CIGNA PPO Discharge Planning Comments: CM met with patient to discuss discharge planning, her mother is in the room. She lives independently with her . She states at discharge she will be going to stay with her mother at [address] [place] [address]. She states her mother will take her home. I discussed availability of inpatient rehab, SNF, home health and DME needs. She states she will need home health. I called [facility] first choice, [facility], and they do not take her insurance. I called [facility] second choice[facility], and spoke with Kiersten. I will send her clinical on Tuesday per her request. CM will continue to follow and assist with discharge planning/needs. Mesh Cutter: Emelia Manzo DCPIA - Discharge Planning Initial Assessment Updated by [id number]: Emelia Manzo on 12/01/18 3:35 pm * Is the patient Alert and Oriented? Yes * How many steps to enter\exit or inside your home? 0/0 * PCP Dinorah Calvert at Dr. Ribera's office * [facility] * Preadmission Environment Home with Family * ADLs Independent * Equipment None * List name and contact numbers for known caregivers / representatives who currently or will assist patient after discharge: Kaden Mar - - [phone] Kena Greer - mother - [phone] * Verbal permission to speak to the caregivers and representatives has been obtained from the patient. Yes * Community resources currently utilized None * Additional services required to return to the preadmission environment? Yes * Can the patient safely return to the preadmission environment? Yes * Has this patient been hospitalized within the prior 30 days at any hospital? Yes Coverage Notice Reviewer: [id number] Kashif Manzo Notice Issued Date-Time: 12/01/2018 15:31 Notice Type: Patient Choice Letter Notice Delivered To: Patient Relationship to Patient: Aviation Manager Name: Delivery Method: HAND - Hand Delivered Kathrin Days: Prior Verbal Notification: Recipient Understood Notice: Yes Recipient Signature: Yes Med Rec Note Co-signed by Attending: Coverage Notice Comment: SUSIE for 1. [facility] Reji Ball Last DP export: 12/01/18 2:36 p Patient Name: KRYSTAL MAR Page [phone] at 1546 All edits/amendments must be made on the electronic document DICTATION DATE: 12/01/18 1546 HEAD OF STORE OPERATIONS: MICHAEL 12/01/18 1546 RPT#: [id number] DC DATE: STATUS: ADM IN [facility] [address] [place] [address] END OF REPORT
[2018-12-01 16:44] VITALS: BP 129/88
--- NOTE | 2018-12-01 19:41 | NUR ---
RECEIVED REPORT, ASSUMED CARE, FAMILY AT BEDSIDE, DENIES NEEDS, CALL LIGHT IN REACH, BED LOWEST POSITION, WILL CONTINUE POC
[2018-12-01 20:00] VITALS: BP 156/89
[2018-12-02] VITALS: BP 151/63
[2018-12-02 03:00] VITALS: BP 149/56
--- NOTE | 2018-12-02 04:42 | NUR ---
I have reviewed this patient and I concur with the Shift Assessment completed by the Licensed Practical Nurse today this shift.
[2018-12-02 06:23] LABS: BASOPHILS 0 % (0-2); HEMATOCRIT 23.1 % (36.0-48.0); IMMATURE GRANULOCYTES 0.8 % (0-5); MCH 26.7 pg (26.0-34.0); MCHC 31.6 g/dL (31.0-37.0); MCV 84.6 fL (80.0-100.0); MEAN PLATELET VOLUME 10.1 fL (7.4-10.4); MONOCYTES 9.5 % (2-11); NEUTROPHILS 69.7 % (40-80); PLATELET COUNT 189 10x3/uL (130-400); RBC 2.73 10x6/uL (4.00-5.40); RDW 17.2 % (11.5-14.5)
[2018-12-02 06:26] LABS: WBC 6.1 10x3/uL (4.8-10.8)
[2018-12-02 06:28] LABS: HEMOGLOBIN 7.3 g/dL (12-16)
--- NOTE | 2018-12-02 06:30 | NUR ---
CRITICAL HGB 7.3, DR IRVING PAGED AWAITING CALL BACK
--- NOTE | 2018-12-02 06:32 | NUR ---
DR IRVING ORDERED 2 UNITS PRBCS
[2018-12-02 06:34] LABS: ANION GAP 10.2 mmol/L (8-16); CALCIUM 7.6 mg/dL (8.5-10.1); CARBON DIOXIDE 26.5 mmol/L (21.0-32.0); CREATININE - SERUM 1.1 mg/dL (0.6-1.3); MAGNESIUM - SERUM 2.7 mg/dL (1.8-2.4); POTASSIUM - SERUM 3.7 mmol/L (3.5-5.1)
--- NOTE | 2018-12-02 08:00 | NUR ---
ASSESSMENT PER FLOW SHEET. PT IS WITHOUT DISTRESS.CALL LIGHT IN REACH
[2018-12-02 08:43] VITALS: BP 183/91
--- NOTE | 2018-12-02 10:26 | NUR ---
Nutrition follow-up: Chart reviewed Mg 2.7 Will wait to adjust TPN until 12/03/18 to see if it normalizes. RDN following.
--- NOTE | 2018-12-02 19:28 | NUR ---
PT REMAINS WITHOUT DISTRESS.CALL LIGHT IN REACH
--- NOTE | 2018-12-02 19:30 | NUR ---
RECEIVED REPORT, ASSUMED CARE, A&O, AT BEDSIDE, NGT LIWS, OSTOMY, VIVIANA DRAIN COMPRESSED, DENIES NEEDS, CALL LIGHT IN REACH, BED LOWEST POSITION, WILL CONTINUE TO MONITOR
[2018-12-02 19:35] VITALS: BP 175/92
--- NOTE | 2018-12-02 23:51 | NUR ---
RECEIVED REPORT, ASSUMED CARE, A&O, AT BEDSIDE, NGT LIWS, OSTOMY, VIVIANA DRAIN COMPRESSED, DENIES NEEDS, CALL LIGHT IN REACH, BED LOWEST POSITION, WILL CONTINUE TO MONITOR
[2018-12-03] VITALS: BP 183/94
--- NOTE | 2018-12-03 03:15 | NUR ---
I have reviewed this patient and I concur with the Shift Assessment completed by the Licensed Practical Nurse today this shift.
[2018-12-03 04:00] VITALS: BP 176/86
[2018-12-03 05:49] LABS: BASOPHILS 0.1 % (0-2); EOSINOPHILS 1.8 % (0-7); IMMATURE GRANULOCYTES 0.7 % (0-5); LYMPHOCYTES 14.8 % (15-50); MCH 28.2 pg (26.0-34.0); MCHC 32.6 g/dL (31.0-37.0); MCV 86.4 fL (80.0-100.0); MEAN PLATELET VOLUME 9.5 fL (7.4-10.4); MONOCYTES 12.2 % (2-11); NEUTROPHILS 70.4 % (40-80); PLATELET COUNT 161 10x3/uL (130-400); RBC 3.23 10x6/uL (4.00-5.40); RDW 16.4 % (11.5-14.5); WBC 7.3 10x3/uL (4.8-10.8)
[2018-12-03 05:50] LABS: HEMATOCRIT 27.9 % (36.0-48.0); HEMOGLOBIN 9.1 g/dL (12-16)
[2018-12-03 06:02] LABS: CALCIUM 7.7 mg/dL (8.5-10.1); CARBON DIOXIDE 27.4 mmol/L (21.0-32.0); MAGNESIUM - SERUM 2.4 mg/dL (1.8-2.4); PHOSPHOROUS 2.8 mg/dL (2.5-4.9); POTASSIUM - SERUM 3.4 mmol/L (3.5-5.1)
--- NOTE | 2018-12-03 08:02 | NUR ---
PT ALERT X 4. BREATH SOUNDS CLEAR BILAT. NG TUBE IN PLACE SET TO LIWS. OSTOMY TO RIGHT LOWER QUAD. MIDLINE DRESSING CDI. DRAIN TO LLQ. +2 EDEMA TO RUE. +1 EDEMA TO BLE. PT REPORTING PAIN OF 9/10, STRIPPING SHOVEL OPERATOR IN PLACE, WILL MONITOR. CENTRAL LINE TO RIGHT IJ, DRESSING CDI. BED LOW, CALL LIGHT IN REACH. NO OTHER NEEDS AT THIS TIME.
[2018-12-03 09:08] VITALS: BP 199/94
[2018-12-03 12:18] VITALS: BP 172/88
[2018-12-03 17:06] VITALS: BP 186/99
--- NOTE | 2018-12-03 18:16 | NUR ---
NG TUBE REMOVED, PT TOLERATED WELL. NO OTHER NEEDS AT THIS TIME
--- NOTE | 2018-12-03 19:30 | NUR ---
RECEIVED REPORT, ASSUMED CARE, SLEEPNG, AT BEDSIDE, BREATHING EVEN UNLABORED, CALL LIGHT IN REACH, BED LOWEST POSITION, WILL CONTINUE TO MONITOR
[2018-12-03 20:00] VITALS: BP 180/98
[2018-12-04] VITALS: BP 146/80
[2018-12-04 04:00] VITALS: BP 125/75
--- NOTE | 2018-12-04 04:00 | NUR ---
I have reviewed this patient and I concur with the Shift Assessment completed by the Licensed Practical Nurse today this shift.
--- NOTE | 2018-12-04 04:02 | NUR ---
WALKED 500FT WITH MINIMAL ASSIST
[2018-12-04 05:51] LABS: ANION GAP 11.1 mmol/L (8-16); CALCIUM 7.2 mg/dL (8.5-10.1); CARBON DIOXIDE 27.7 mmol/L (21.0-32.0); MAGNESIUM - SERUM 2.3 mg/dL (1.8-2.4); PHOSPHOROUS 2.8 mg/dL (2.5-4.9); POTASSIUM - SERUM 3.8 mmol/L (3.5-5.1)
--- NOTE | 2018-12-04 08:30 | NUR ---
PT RESTING QUIETLY IN BED. REPORTS OF PAIN 05/01. DILAUDID PETROLEUM GEOLOGY FACULTY MEMBER INTACT AND UTILIZING. RIGHT JUGULAR IV INTACT AND PATENT WITH NS, TPN @ 40ML/HR INFUSING VIA PUMP SITE WITHOUT REDNESS OR EDEMA. VIVIANA DRAIN INTACT AND DRAINING SEROSANGEOUNOUS DRAINAGE TO LEFT LOWER QUAD, MIDLINE INCISION DRESSING C/D/I, COLOSTOMY PATENT. F/C PATENT TO GRAVITY AND DRAINING. DENIES FURTHER NEEDS AT THIS TIME. CL WITHIN REACH. ENCOURAGED TO CALL WITH NEEDS. CONTINUE POC
[2018-12-04 08:46] VITALS: BP 135/79
[2018-12-04 13:17] VITALS: BP 135/75
--- NOTE | 2018-12-04 14:14 | NUR ---
NUTRITION F/U CHART/LABS REVIEWED. PER MD CONSULT INCREASED TPN RATE TO 75 CC/HR AND DECREASED NS TO KVO. WILL MONITOR LABS AND ADJUST TPN NEEDED. RD FOLLOWING
[2018-12-04 16:47] VITALS: BP 131/69
[2018-12-04 20:00] VITALS: BP 143/84
--- NOTE | 2018-12-04 20:00 | NUR ---
ASSESSMENT PER FLOWSHEET.IV PATENT RT IJ OF NS AT 20CC'S/HR TPN AT 75CC'S/HR WIND TURBINE MECHANICAL ENGINEER DILAUDID IN USE WITH SETTINGS AT 0.4MG Q10MIN W/8MG Q4H L/O. SR UP X2 CALL LIGHT WITHIN REACH SPOUSE AT BEDSIDE. AMBULATED WITH SPOUSE IN HALLWAY. ONE LAP.
--- NOTE | 2018-12-04 21:00 | NUR ---
MEDS GIVEN PER MAR. REFUSES TO WEAR SCD'S
--- NOTE | 2018-12-05 | NUR ---
[id number].
--- NOTE | 2018-12-05 00:12 | NUR ---
C/O NAUSEA ZOFRAN 4MG IVP GIVEN FOR RELIEF NO EMESIS SEEN.REQUESTING ITCHING MED. BENADRYL 25MG IVP GIVEN FOR ITCHING. COLOSTOMY IN PLACE (RT). VIVIANA DRAIN ON THE LEFT.
[2018-12-05 04:00] VITALS: BP 163/80
--- NOTE | 2018-12-05 04:30 | NUR ---
AWAKE AMBULATED IN HALLWAY WITH DRUM REEL CUTTER.
--- NOTE | 2018-12-05 06:00 | NUR ---
REQUESTING NAUSEA MED NO EMESIS SEEN. ZOFRAN 4MG IVP GIVEN FOR RELIEF OF NAUSEA.
--- NOTE | 2018-12-05 06:15 | NUR ---
[id number].
[2018-12-05 07:37] LABS: BASOPHILS 0 % (0-2); EOSINOPHILS 1.6 % (0-7); HEMATOCRIT 26.9 % (36.0-48.0); HEMOGLOBIN 8.6 g/dL (12-16); LYMPHOCYTES 15.6 % (15-50); MCH 28.2 pg (26.0-34.0); MCV 88.2 fL (80.0-100.0); MEAN PLATELET VOLUME 10.1 fL (7.4-10.4); MONOCYTES 10.9 % (2-11); NEUTROPHILS 70.9 % (40-80); RBC 3.05 10x6/uL (4.00-5.40); RDW 16.7 % (11.5-14.5); WBC 8.3 10x3/uL (4.8-10.8)
[2018-12-05 07:39] LABS: PLATELET COUNT 231 10x3/uL (130-400)
[2018-12-05 07:52] LABS: ANION GAP 11.6 mmol/L (8-16); CALCIUM 7.9 mg/dL (8.5-10.1); CARBON DIOXIDE 28.3 mmol/L (21.0-32.0); MAGNESIUM - SERUM 2.1 mg/dL (1.8-2.4)
[2018-12-05 07:53] LABS: POTASSIUM - SERUM 3.9 mmol/L (3.5-5.1)
--- NOTE | 2018-12-05 08:00 | NUR ---
PT AAOX4 RESP EVEN AND NONLABORED, NO SIGNS OF DISTRESS NOTED, CL IN REACH WILL CONTINUE TO MONITOR
[2018-12-05 09:34] VITALS: BP 165/83
--- NOTE | 2018-12-05 13:07 | MORECARE ---
CASE MANAGEMENT DISCHARGE SUMMARY PATIENT: KRYSTAL MAR UNIT: [id number] ADM DATE: 11/28/18 AGE: 48 : 72 SEX: F ROOM/BED: D.2222 AUTHOR: JOSSYDOC PHYSICIAN: REFERRING PHYSICIAN: TIM DE LEON MD DATE OF SERVICE: 12/05/18 Discharge Plan Patient Name: KRYSTAL MAR Facility: [facility]:[place] : 1970 Planned Disposition: Home Anticipated Discharge Date: Discharge Date: Expected LOS: Initial Reviewer: [id number] Initial Review Date: 12/01/2018 Generated: 12/05/18 2:07 pm Comments DCP- Discharge Planning Updated by [email or web address]: Emelia Manzo on 12/01/18 2:[address] Patient Name: KRYSTAL MAR Admission Status: Elective Accout number: [id number] Admission Date: 11-28-2018 : 1970 Admission Diagnosis: Attending: ITM DE LEON Current LOS: 3 Anticipated DC Date: Planned Disposition: Home Primary Insurance: CIGNA PPO Discharge Planning Comments: CM met with patient to discuss discharge planning, her mother is in the room. She lives independently with her . She states at discharge she will be going to stay with her mother at [address] [place] [address]. She states her mother will take her home. I discussed availability of inpatient rehab, SNF, home health and DME needs. She states she will need home health. I called [facility] first choice, [facility], and they do not take her insurance. I called her second choice, [facility], and spoke with Kiersten. I will send her clinical on Tuesday per her request. CM will continue to follow and assist with discharge planning/needs. Chart Calculator: Emelia Manzo DCPIA - Discharge Planning Initial Assessment Updated by [id number]: Emelia Manzo on 12/01/18 3:35 pm * Is the patient Alert and Oriented? Yes * How many steps to enter\exit or inside your home? 0/0 * PCP Dinorah Calvert at Dr. Ribera's office * [facility] * Preadmission Environment Home with Family * ADLs Independent * Equipment None * List name and contact numbers for known caregivers / representatives who currently or will assist patient after discharge: Kaden Mar - - [phone] Kena Greer - mother - [phone] * Verbal permission to speak to the caregivers and representatives has been obtained from the patient. Yes * Community resources currently utilized None * Additional services required to return to the preadmission environment? Yes * Can the patient safely return to the preadmission environment? Yes * Has this patient been hospitalized within the prior 30 days at any hospital? Yes External Providers External Provider: [facility] Next Contact Date: Service Request Date: Service Type: Resolution: Reviewer: Comments: Coverage Notice Reviewer: [id number] Kashif Manzo Notice Issued Date-Time: 12/01/2018 15:31 Notice Type: Patient Choice Letter Notice Delivered To: Patient Relationship to Patient: Contact Officer Name: Delivery Method: HAND - Hand Delivered Kathrin Days: Prior Verbal Notification: Recipient Understood Notice: Yes Recipient Signature: Yes Med Rec Note Co-signed by Attending: Coverage Notice Comment: SUSIE for 1. [place] 2. [facility] Last DP export: 12/01/18 2:46 p Patient Name: KRYSTAL MAR Page [phone] at 1307 All edits/amendments must be made on the electronic document DICTATION DATE: 12/05/18 1307 HEALTHCARE LIAISON: MICHAEL 12/05/18 1307 RPT#: [id number] DC DATE: STATUS: ADM IN [facility] [address] [place] [address] END OF REPORT
--- NOTE | 2018-12-05 13:35 | NUR ---
NUTRITION F/U CHART/LABS REVIEWED. TPN ADJUSTED AND RENEWED. BMP, MAG, PHOS ADDED TO AM LABS. WILL CONTINUE TO MONITOR LABS, ADJUST TPN NEEDED. RD FOLLOWING
[2018-12-05 13:38] VITALS: BP 157/78
--- NOTE | 2018-12-05 17:00 | NUR ---
PT MIDLINE INCISON LEAKING OUT MODERATE AMOUNT OF THICK WHITE SUBSTANCE, DR. IRVING WAS ON THE FLOOR AND HE ASSESSED THE PT AND SAID HE WOULD GO TALK TO , DR. IRVING CALLED BACK AND SAID TO REMOVE THE BOTTOM 5 CHAO AND CULTURE THE SUBSTANCE AND TO FLUSH WITH HYDROGEN PEROXIDE, DONE AT THE TIME CULTURE SENT TO LAB AND FLUSED WITH 40CC OF HYDROGEN PEROXIDE PT TOLERATED WITHOUT COMPLAINT
[2018-12-05 18:14] VITALS: BP 153/77
[2018-12-05 22:01] VITALS: BP 140/88
[2018-12-05 22:09] VITALS: BP 172/83
[2018-12-06 05:21] VITALS: BP 136/71
[2018-12-06 06:01] LABS: ANION GAP 12.1 mmol/L (8-16); CALCIUM 7.3 mg/dL (8.5-10.1); CARBON DIOXIDE 27.6 mmol/L (21.0-32.0); CREATININE - SERUM 1.2 mg/dL (0.6-1.3); MAGNESIUM - SERUM 1.8 mg/dL (1.8-2.4); PHOSPHOROUS 3.4 mg/dL (2.5-4.9); POTASSIUM - SERUM 3.7 mmol/L (3.5-5.1)
--- NOTE | 2018-12-06 07:30 | NUR ---
PATIENT RECIEVED RESTING IN BED, DENIES NEEDS AT THIS TIME. VIVIANA DRAIN TO LEFT ABDOMEN WITH 65CC DRAINED. DRESSING C/D/I TO MID LOWER ABDOMEN. COLOSTOMY APPLIANCE IN PLACE. WITH LOOSE GREEN STOOL NOTED TO DRAINAGE BAG. CL IN REACH
[2018-12-06 09:37] VITALS: BP 133/77
[2018-12-06 14:03] VITALS: BP 157/74
[2018-12-06 17:07] VITALS: BP 128/77
--- NOTE | 2018-12-06 17:18 | NUR ---
DRESSING CHANGED TO VIVIANA DRAIN SITE. DRESSING ALSO CHANGED TO RIGHT IJ USING STERILE TECHNIQUE
[2018-12-06 20:00] VITALS: BP 122/69
--- NOTE | 2018-12-06 23:17 | NUR ---
REC'D. AMB. IN HALLWAY WITH .TREE WELL STATES PAIN HAS BEEN PRETTY BAD TODAY MIDLINE DRSG VIVIANA DRAIN COLOSTOMY ON RIGHT WITH DK GREENISH COLORED LIQ DRAINAGE PRESENT. WILL CONTINUE TO MONITOR FOR ANY CHGES. AND FOLLOW CURRENT PLAN OF CARE.
[2018-12-07 04:00] VITALS: BP 125/82
--- NOTE | 2018-12-07 07:28 | NUR ---
I have reviewed this patient and I concur with the Shift Assessment completed by the Licensed Practical Nurse today this shift.
[2018-12-07 08:37] LABS: BASOPHILS 0.1 % (0-2); HEMATOCRIT 25.5 % (36.0-48.0); HEMOGLOBIN 8.1 g/dL (12-16); IMMATURE GRANULOCYTES 0.5 % (0-5); LYMPHOCYTES 12.5 % (15-50); MCHC 31.8 g/dL (31.0-37.0); MCV 88.2 fL (80.0-100.0); MEAN PLATELET VOLUME 10.2 fL (7.4-10.4); MONOCYTES 10.4 % (2-11); NEUTROPHILS 74.5 % (40-80); RBC 2.89 10x6/uL (4.00-5.40); RDW 16.1 % (11.5-14.5); WBC 11.1 10x3/uL (4.8-10.8)
[2018-12-07 08:42] LABS: ANION GAP 11.9 mmol/L (8-16); CALCIUM 7.5 mg/dL (8.5-10.1); CARBON DIOXIDE 28.9 mmol/L (21.0-32.0); CREATININE - SERUM 1.1 mg/dL (0.6-1.3); MAGNESIUM - SERUM 1.8 mg/dL (1.8-2.4); PHOSPHOROUS 3.7 mg/dL (2.5-4.9); PLATELET COUNT 279 10x3/uL (130-400); POTASSIUM - SERUM 3.8 mmol/L (3.5-5.1)
[2018-12-07 08:45] VITALS: BP 147/77
[2018-12-07 12:45] VITALS: BP 129/91
[2018-12-07 17:06] VITALS: BP 144/74
--- NOTE | 2018-12-07 19:00 | NUR ---
REPORT RECEIVED AND CARE OF PT ASSUMED. PT UP IN BATHROOM WITH FAMILY MEMBERS ASSISTING WITH BATH. RIGHT IJ PATENT WITH TPN INFUISNG AT 40 ML / HR; ZOFRAN INFUSING AT 4.7, AND DILAUDID GREASER AND OILER IN USE FOR PAIN CONTROL.
--- NOTE | 2018-12-07 19:15 | NUR ---
DRESSING CHANGED ON ABDOMEN BY FAMILY MEMBER.
[2018-12-07 20:52] VITALS: BP 135/71
--- NOTE | 2018-12-07 21:15 | NUR ---
EMPTIED 150 ML OF GREEN STOOL FROM COLOSTOMY BAG.
--- NOTE | 2018-12-07 21:17 | NUR ---
HS MEDICATIONS GIVEN.
--- NOTE | 2018-12-07 21:35 | NUR ---
GAVE BOLUS DOSE OF DILAUDID 0.8 VIA FARM CROPS TEACHER.
[2018-12-08 01:02] VITALS: BP 132/68
[2018-12-08 04:48] LABS: BASOPHILS 0.1 % (0-2); HEMATOCRIT 25.4 % (36.0-48.0); HEMOGLOBIN 8.1 g/dL (12-16); IMMATURE GRANULOCYTES 0.6 % (0-5); LYMPHOCYTES 11.9 % (15-50); MCHC 31.9 g/dL (31.0-37.0); MCV 87.9 fL (80.0-100.0); MEAN PLATELET VOLUME 9.5 fL (7.4-10.4); MONOCYTES 10.6 % (2-11); NEUTROPHILS 74.8 % (40-80); PLATELET COUNT 321 10x3/uL (130-400); RBC 2.89 10x6/uL (4.00-5.40); WBC 12.7 10x3/uL (4.8-10.8)
[2018-12-08 04:54] VITALS: BP 129/73
[2018-12-08 04:58] LABS: CALCIUM 7.7 mg/dL (8.5-10.1); CARBON DIOXIDE 29.4 mmol/L (21.0-32.0); CREATININE - SERUM 0.9 mg/dL (0.6-1.3); MAGNESIUM - SERUM 1.5 mg/dL (1.8-2.4); PHOSPHOROUS 3.7 mg/dL (2.5-4.9); POTASSIUM - SERUM 3.4 mmol/L (3.5-5.1)
--- NOTE | 2018-12-08 06:30 | NUR ---
POTASSIUM LEVEL 3.4 REQUIRING COVERAGE WITH 20 MEQ RIDER X2; AND MAG LEVEL 1.5 REQUIRING COVERAGE WITH 2GM MAG RIDER...RE CHECK LEVELS IN AM.
[2018-12-08 08:44] VITALS: BP 109/69
--- NOTE | 2018-12-08 10:42 | NUR ---
PT IS WITHOUT DISTRESS. AT BEDSIDE.DOOR OPEN
[2018-12-08 12:48] VITALS: BP 120/63
--- NOTE | 2018-12-08 13:48 | NUR ---
PT RESTING IN BED. NO SIGNS OF DISTRESS. IV TO RT JUGULAR PATENT NO REDNESS OR TENDERNESS. HAS MIDLINE INCISION CLEAN AND INTACT. HAS VIVIANA DRAIN AND COLOSTOMY TO RIGHT SIDE OF ABDOMEN. COMPLAINS OF PAIN MEDICATIONS GIVEN. DENIES ANY FUTHER NEED AT THIS TIME. CALL LIGHT IN REACH. BED LOW POSITION. FAMILY AT BEDSIDE.
[2018-12-08 16:17] VITALS: BP 136/73
--- NOTE | 2018-12-08 19:00 | NUR ---
REPORT RECEIVED AND CARE OF PT ASSUMED. PT LYING IN SUPINE POSITION VISITING WITH FAMILY MEMBERS. RIGHT IJ PATENT WITH TPN INFUSING AT 40 ML / HR; AND NS INFUSING AT KVO. CHANGED DRESSING ON LOWER INCISION THAT HAS SEROUS DRAINAGE. REID CATHETER DRAINING TO GRAVITY WITH KAYLYN URINE IN COLLECTION BAG. WILL MONITOR FOR NEEDS. WILL MONITOR FOR NEEDS.
--- NOTE | 2018-12-08 19:34 | NUR ---
GAVE DILAUDID AND BENADRYL PER REQUEST, PER PRN ORDERS. WILL CONTINUE TO MONITOR FOR NEEDS.
[2018-12-08 20:00] VITALS: BP 105/75
--- NOTE | 2018-12-08 21:39 | NUR ---
HS MEDICATIONS GIVEN TO INCLUDE PERCOCET PO PER REQUEST, PER PRN ORDER. WILL MONITOR FOR EFFECTIVENESS.
[2018-12-09] VITALS: BP 110/67
[2018-12-09 03:00] VITALS: BP 118/66
[2018-12-09 05:20] LABS: BASOPHILS 0 % (0-2); EOSINOPHILS 2.1 % (0-7); HEMATOCRIT 25.9 % (36.0-48.0); HEMOGLOBIN 8.3 g/dL (12-16); IMMATURE GRANULOCYTES 0.3 % (0-5); MCV 87.5 fL (80.0-100.0); MEAN PLATELET VOLUME 9.8 fL (7.4-10.4); MONOCYTES 11.1 % (2-11); NEUTROPHILS 73.5 % (40-80); PLATELET COUNT 356 10x3/uL (130-400); RBC 2.96 10x6/uL (4.00-5.40); RDW 15.9 % (11.5-14.5); WBC 12.3 10x3/uL (4.8-10.8)
[2018-12-09 05:40] LABS: ANION GAP 10.5 mmol/L (8-16); CALCIUM 7.9 mg/dL (8.5-10.1); CREATININE - SERUM 0.9 mg/dL (0.6-1.3); MAGNESIUM - SERUM 1.7 mg/dL (1.8-2.4); PHOSPHOROUS 3.6 mg/dL (2.5-4.9); POTASSIUM - SERUM 3.5 mmol/L (3.5-5.1)
--- NOTE | 2018-12-09 08:04 | NUR ---
NUTRITION F/U CHART/LABS REVIEWED. BMP, MAG, PH0S ADDED TO AM LAB DRAW. RD FOLLOWING
[2018-12-09 09:50] VITALS: BP 125/70
--- NOTE | 2018-12-09 10:15 | NUR ---
PATIENT TPN TURNED DOWN TO 20. ORDER TO DC TPN.
--- NOTE | 2018-12-09 13:00 | NUR ---
PATIENT TPN DC'D.
[2018-12-09 14:41] VITALS: BP 124/59
--- NOTE | 2018-12-09 15:59 | NUR ---
PATIENT UP IN HALLWAY AMBULATING. WALKED 500 FEET WITH FAMILY AT SIDE. NO PROBLEMS AT THIS TIME.
[2018-12-09 17:12] VITALS: BP 120/66
--- NOTE | 2018-12-09 18:55 | NUR ---
PATIENT IN BED WITH IV INTACT. DILAUDID FOR PAIN GIVEN BY CHARLENE ELLIS. DRESSINGS CHANGED TO INCISIONS EARLIER BY RN. INCISION TO MID ABD CLEAN AND DRY WITH CHAO INTACT. BOTTOM OF INCISION WITH SOME PINK/YELLOW DRAINAGE. SCANT AMOUNT. CLEANED WITH WOUND ACURA SALES CONSULTANT AND NEW DRESSING PLACED OVER SITES. VIVIANA DRAIN DRESSING CHANGED WELL. CLEANED WITH WOUND ACURA SALES CONSULTANT AND NEW DRESSING APPLIED. VIVIANA DRAIN EMPTIED. COLOSTOMY INTACT. CALL LIGHT WITHIN REACH.
--- NOTE | 2018-12-09 19:00 | NUR ---
REPORT RECEIVED AND CARE OF PT ASSUMED. PT LYING ON LEFT SIDE WITH EYES CLOSED AND EASY RESPIRATIONS. RIGHT IJ PATENT WITH NS INFUSING AT KVO. REID CATHETER DRAINING TO GRAVITY WITH YELLOW URINE IN COLLECTION BAG. WILL MONITOR FOR NEEDS.
[2018-12-09 19:37] VITALS: BP 121/64
--- NOTE | 2018-12-09 20:50 | NUR ---
EMPTIED 500 ML OF GREEN LIQUID FROM COLOSTOMY BAG.
--- NOTE | 2018-12-09 21:00 | NUR ---
HS MEDICATIONS GIVEN TO INCLUDE PRN BENADRYL PER REQUEST. PT DECLINES HS SNACK AT THIS TIME. WILL CONTINUE TO MONITOR FOR NEEDS.
--- NOTE | 2018-12-09 23:23 | NUR ---
GAVE DILAUDID 1 MG IVP AND ZOFRAN 4 MG IVP FOR C/O ABDOMINAL PAIN AT LEVEL 9/10 AND NAUSEA. WILL MONITOR FOR EFFECTIVENESS.
[2018-12-10 00:56] VITALS: BP 128/73
--- NOTE | 2018-12-10 04:47 | NUR ---
OSTOMY APPLIANCE LEAKING...REMOVED AND REPLACED. CHANGED ALL DRESSINGS ON INCISIONS AND AROUND VIVIANA DRAIN INSERTION SITE.
--- NOTE | 2018-12-10 04:49 | NUR ---
BEVERLEY BLOOD FROM CENTRAL LINE FOR AM LABS AND DELIVERED TO LAB.
[2018-12-10 05:52] VITALS: BP 94/55
[2018-12-10 07:09] LABS: BASOPHILS 0.1 % (0-2); EOSINOPHILS 2.2 % (0-7); HEMATOCRIT 25.1 % (36.0-48.0); IMMATURE GRANULOCYTES 0.3 % (0-5); LYMPHOCYTES 14.6 % (15-50); MCH 28.2 pg (26.0-34.0); MCHC 31.9 g/dL (31.0-37.0); MCV 88.4 fL (80.0-100.0); MEAN PLATELET VOLUME 10.1 fL (7.4-10.4); NEUTROPHILS 71.8 % (40-80); RBC 2.84 10x6/uL (4.00-5.40)
[2018-12-10 07:11] LABS: PLATELET COUNT 433 10x3/uL (130-400)
[2018-12-10 07:15] LABS: MAGNESIUM - SERUM 1.7 mg/dL (1.8-2.4)
[2018-12-10 07:34] LABS: ANION GAP 10.8 mmol/L (8-16); CALCIUM 7.8 mg/dL (8.5-10.1); CARBON DIOXIDE 31.2 mmol/L (21.0-32.0)
[2018-12-10 07:51] LABS: PHOSPHOROUS 3.7 mg/dL (2.5-4.9)
[2018-12-10 08:21] VITALS: BP 125/66
--- NOTE | 2018-12-10 08:45 | NUR ---
PATIENT IN BED WITH IV INTACT. COLOSTOMY EMPTIED. NO COMPLAINTS OR SIGNS OF DISTRESS. CALL LIGHT WITHIN REACH. FAMILY AT BEDSIDE.
--- NOTE | 2018-12-10 11:25 | NUR ---
PATIET SITTING UP IN CHAIR AT THIS TIME. NO COMPLAINTS. CALL LIGHT WITHIN REACH.
[2018-12-10 14:23] VITALS: BP 112/73
--- NOTE | 2018-12-10 15:20 | NUR ---
PATIENT IN BED WITH EYES CLOSED RESTING QUIETLY. FAMILY AT BEDSIDE. CALL LIGHT WITHIN REACH.
[2018-12-10 15:55] VITALS: BP 136/84
--- NOTE | 2018-12-10 17:30 | NUR ---
UP AMBULATING IN HALLWAY WITH . VIVIANA DRAIN, COLOSTOMY, AND REID INTACT.
--- NOTE | 2018-12-10 19:00 | NUR ---
REPORT RECEIVED AND CARE OF PT ASSUMED. PT LYING IN SUPINE POSITION VISITING WITH FAMILY MEMBERS. RIGHT IJ CENTRAL LINE PATENT WITH NS INFUSING AT KVO. REID CATHETER DRAINING TO GRAVITY WITH KAYLYN URINE IN COLLECTION BAG. DARK GREEN LIQUID IN COLOSTOMY BAG. VIVIANA DRAIN WITH SMALL AMOUNT OF SEROUS FLUID...WELL COMPRESSED. DRESSINGS ON ABDOMEN CLEAN AND DRY. WILL MONITOR FOR NEEDS.
--- NOTE | 2018-12-10 19:20 | NUR ---
EMPTIED COLOSTOMY BAG AND ENTERED INTO I & O RECORD.
[2018-12-10 20:00] VITALS: BP 125/76
--- NOTE | 2018-12-10 20:17 | NUR ---
HS MEDICATIONS GIVEN TO INCLUDE DILAUDID FOR PAIN, BENADRYL FOR ITCHING AND ZOFRAN FOR NAUSEA. WILL CONTINUE TO MONITOR FOR NEEDS.
--- NOTE | 2018-12-10 22:00 | NUR ---
EMPTIED COLOSTOMY BAG AND ENTERED AMOUNT INTO I & O RECORD.
[2018-12-11] VITALS: BP 121/70
[2018-12-11 03:00] VITALS: BP 127/72
--- NOTE | 2018-12-11 04:15 | NUR ---
BLOOD DRAWN FROM CENTRAL LINE FOR AM LABS AND DELIVERED TO LAB.
[2018-12-11 04:37] LABS: HEMATOCRIT 25.6 % (36.0-48.0); HEMOGLOBIN 8.4 g/dL (12-16); MCH 28.7 pg (26.0-34.0); MCHC 32.8 g/dL (31.0-37.0); MCV 87.4 fL (80.0-100.0); MEAN PLATELET VOLUME 9.2 fL (7.4-10.4); NEUTROPHILS 73.8 % (40-80); PLATELET COUNT 454 10x3/uL (130-400); RBC 2.93 10x6/uL (4.00-5.40); RDW 14.9 % (11.5-14.5); WBC 10.7 10x3/uL (4.8-10.8)
[2018-12-11 04:59] LABS: ANION GAP 10.4 mmol/L (8-16); CALCIUM 7.6 mg/dL (8.5-10.1); CARBON DIOXIDE 30.8 mmol/L (21.0-32.0); CREATININE - SERUM 1.1 mg/dL (0.6-1.3); MAGNESIUM - SERUM 1.6 mg/dL (1.8-2.4); PHOSPHOROUS 3.6 mg/dL (2.5-4.9); POTASSIUM - SERUM 4.2 mmol/L (3.5-5.1)
--- NOTE | 2018-12-11 06:07 | NUR ---
CHANGED ALL IV TUBING PER CHANGE SCHEDULE. LABELED WITH NEXT CHANGE DATE.
--- NOTE | 2018-12-11 06:10 | NUR ---
PT BATHED AND ALL LINEN AND GOWN CHANGED.
--- NOTE | 2018-12-11 08:00 | NUR ---
PATIENT IN BED WITH IV INTACT. NO COMPLAINTS OR SIGNS OF DISTRESS. CALL LIGHT WITHIN REACH.
[2018-12-11 09:19] VITALS: BP 156/78
--- NOTE | 2018-12-11 11:40 | NUR ---
PATIENT REID REMOVED AT THIS TIME. PATIENT VOIDED WITH NO PROBLEMS. CHAO TO ABDOMEN REMOVED WITH NO PROBLEMS. INCISION CLEAN AND DRY WITH NO DRAINAGE AT THIS TIME. CLEANED WITH WOUND TIP PRINTER. LOWER PART OF INCISON OPEN WITH DRESSING OVER IT. CLEANED AND NEW ABD PAD PLACED. VIVIANA DRAIN DRESSING CDI. VIVIANA AND COLOSTOMY EMPTIED. PATIENT CLEANED UP AND IN BED COMFORTABLY. FAMILY AT SIDE. CALL LIGHT WITHIN REACH.
[2018-12-11 13:10] VITALS: BP 146/84
--- NOTE | 2018-12-11 15:12 | NUR ---
PATIENT IN BED WITH NO COMPLAINTS OR SIGNS OF DISTRESS. CALL LIGHT WITHIN REACH.
[2018-12-11 16:16] VITALS: BP 148/86
--- NOTE | 2018-12-11 18:47 | MORECARE ---
CASE MANAGEMENT DISCHARGE SUMMARY PATIENT: KRYSTAL MAR UNIT: [id number] ADM DATE: 11/28/18 AGE: 48 : 72 SEX: F ROOM/BED: D.2222 AUTHOR: JOSSYDOC PHYSICIAN: REFERRING PHYSICIAN: TIM DE LEON MD DATE OF SERVICE: 12/11/18 Discharge Plan Patient Name: KRYSTAL MAR Facility: [facility]:[place] : 1970 Planned Disposition: Home Anticipated Discharge Date: Discharge Date: Expected LOS: Initial Reviewer: [email or web address] Initial Review Date: 12/01/2018 Generated: 12/11/18 7:47 pm Comments DCP- Discharge Planning Updated by [id number]: Akila Sanchez on 12/11/18 5:[address] LATE ENTRY 1400 CM RECEIVED A TELEPHONE CALL FROM BRODY AT [facility] REGARDING UPDATE OF STATUS. CM FAXED REFERRAL PER EMELIA'S CASE MANAGEMENT NOTE. CM TO FOLLOW UP IN THE AM. NO DISCHARGE ORDER. QUESTION ILEUS VS SBO. CT SCAN WITH IV CONTRAST SHOWED NO URINARY LEAK FROM URETERAL ANASTOMOSIS. DR ACOSTA ASK DR DE LEON TO D/C REID TO SEE IF VIVIANA DRAINAGE WILL INCREASE. VIVIANA DRAINAGE AT 30 CC/DAY. IF NO INCREASE IN VIVIANA DRAINAGE, DR ACOSTA CAN REMOVE THE STENT TUESDAY. DCP- Discharge Planning Updated by [id number]: Emelia Manzo on 12/01/18 2:[address] Patient Name: KRYSTAL MAR Admission Status: Elective Accout number: [id number] Admission Date: 11-28-2018 : 1970 Admission Diagnosis: Attending: TIM DE LEON Current LOS: 3 Anticipated DC Date: Planned Disposition: Home Primary Insurance: [employer]IG[employer] PPO Discharge Planning Comments: CM met with patient to discuss discharge planning, her mother is in the room. She lives independently with her . She states at discharge she will be going to stay with her mother at [address] [place] [address]. She states her mother will take her home. I discussed availability of inpatient rehab, SNF, home health and DME needs. She states she will need home health. I called [facility] first choice, [facility], and they do not take her insurance. I called [facility] second choice, [facility], and spoke with Kiersten. I will send her clinical on Tuesday per her request. CM will continue to follow and assist with discharge planning/needs. Pantographer: Emelia Manzo DCPIA - Discharge Planning Initial Assessment Updated by [id number]: Emelia Anais on 12/01/18 3:35 pm * Is the patient Alert and Oriented? Yes * How many steps to enter\exit or inside your home? 0/0 * PCP Dinorah Calvert at Dr. Ribera's office * [facility] [address] * Preadmission Environment Home with Family * ADLs Independent * Equipment None * List name and contact numbers for known caregivers / representatives who currently or will assist patient after discharge: Kaden Mar - - [phone] Kena Greer - mother - [phone] * Verbal permission to speak to the caregivers and representatives has been obtained from the patient. Yes * Community resources currently utilized None * Additional services required to return to the preadmission environment? Yes * Can the patient safely return to the preadmission environment? Yes * Has this patient been hospitalized within the prior 30 days at any hospital? Yes Coverage Notice Reviewer: [email or web address] - Emelia Orrsilvana Notice Issued Date-Time: 12/01/2018 15:31 Notice Type: Patient Choice Letter Notice Delivered To: Patient Relationship to Patient: Bus Mechanic Name: Delivery Method: HAND - Hand Delivered Kathrin Days: Prior Verbal Notification: Recipient Understood Notice: Yes Recipient Signature: Yes Med Rec Note Co-signed by Attending: Coverage Notice Comment: SUSIE for 1. [place] 2. [facility] Last DP export: 12/05/18 12:07 p Patient Name: KRYSTAL MAR Page [id number] at 1847 All edits/amendments must be made on the electronic document DICTATION DATE: 12/11/181845 [employer] AGENT: MICHAEL 12/11/181845 RPT#: [id number] DC DATE: STATUS: ADM IN [facility] [address] [place] [address] END OF REPORT
--- NOTE | 2018-12-11 19:35 | NUR ---
PT RESTING IN BED. ALERT AND ORIENTED. NO SIGNS OF DISTRESS. BREATHING EVEN AND UNLABORED. PT STATES NO PROBLEMS AT THIS TIME. IV SITE RT JUGULAR DRESSING CLEAN DRY AND INTACT. NO SIGNS OF INFECTION. ABD INCISION PRESENT. LT LOWER ABD VIVIANA DRAIN NO DRAINAGE PRESENT. DRESSING CLEAN DRY AND INTACT. RT LOWER ABD ILEOSTOMY CLEAN DRY AND INTACT. STOMA LIGHT PINK IN COLOR. NO SIGNS OF INFECTION. NO LOWER LEG SWELLING PRESENT. WILL CONTINUE PLAN OF CARE. CALL LIGHT IN REACH. BED LOWERED AND LOCKED. BED RAILS UP X2.
[2018-12-11 20:00] VITALS: BP 139/86
[2018-12-12 04:00] VITALS: BP 140/80
--- NOTE | 2018-12-12 05:41 | NUR ---
I have reviewed this patient and I concur with the Shift Assessment completed by the Licensed Practical Nurse today this shift.
--- NOTE | 2018-12-12 08:30 | NUR ---
ASSESSMENT PER FLOW SHEET. PT IS WITOUT DISTRESS. SHE WANTS PAIN MEDS, STATES HER PAIN IS 8/10 TO ABDOMEN. PAIN MEDS ORDERD PER MAR.SHE DENIES FURTHER NEEDS. AMBULATION INSTRUCTED.MONITOR
[2018-12-12 08:44] VITALS: BP 156/81
[2018-12-12 09:11] LABS: BASOPHILS 0.2 % (0-2); EOSINOPHILS 1.8 % (0-7); HEMATOCRIT 26.2 % (36.0-48.0); HEMOGLOBIN 8.4 g/dL (12-16); IMMATURE GRANULOCYTES 0.4 % (0-5); LYMPHOCYTES 14.5 % (15-50); MCH 27.8 pg (26.0-34.0); MCHC 32.1 g/dL (31.0-37.0); MCV 86.8 fL (80.0-100.0); MEAN PLATELET VOLUME 9.3 fL (7.4-10.4); MONOCYTES 11.8 % (2-11); NEUTROPHILS 71.3 % (40-80); PLATELET COUNT 522 10x3/uL (130-400); RBC 3.02 10x6/uL (4.00-5.40); RDW 15.6 % (11.5-14.5); WBC 11.1 10x3/uL (4.8-10.8)
[2018-12-12 09:28] LABS: ANION GAP 11.6 mmol/L (8-16); CALCIUM 8.1 mg/dL (8.5-10.1); CARBON DIOXIDE 28.5 mmol/L (21.0-32.0); POTASSIUM - SERUM 4.1 mmol/L (3.5-5.1)
--- NOTE | 2018-12-12 11:34 | MORECARE ---
CASE MANAGEMENT DISCHARGE SUMMARY PATIENT: KRYSTAL MAR UNIT: [id number] ADM DATE: 11/28/18 AGE: 48 : 72 SEX: F ROOM/BED: D.2222 AUTHOR: JOSSYDOC PHYSICIAN: REFERRING PHYSICIAN: TIM DE LEON MD DATE OF SERVICE: 12/12/18 Discharge Plan Patient Name: KRYSTAL MAR Facility: [facility]:[place] : 1970 Planned Disposition: Home Anticipated Discharge Date: Discharge Date: Expected LOS: Initial Reviewer: [id number] Initial Review Date: 12/01/2018 Generated: 12/12/18 12:34 pm Comments DCP- Discharge Planning Updated by [email or web address]: Zulema Cruz on 12/12/18 10:[address] Brody with [facility] [employer] [facility] called and stated that the patient's put of pocket expense is $20,000.00 then once she meets that she will be responsible for 40%. [facility] does not accept Cigna. DCP- Discharge Planning Updated by [email or web address]: Akila Sanchez on 12/11/18 5:[address] LATE ENTRY 1400 CM RECEIVED A TELEPHONE CALL FROM BRODY AT [facility] REGARDING UPDATE OF STATUS. CM FAXED REFERRAL PER EMELIA'S CASE MANAGEMENT NOTE. CM TO FOLLOW UP IN THE AM. NO DISCHARGE ORDER. QUESTION ILEUS VS SBO. CT SCAN WITH IV CONTRAST SHOWED NO URINARY LEAK FROM URETERAL ANASTOMOSIS. DR ACOSTA ASK DR DE LEON TO D/C REID TO SEE IF VIVIANA DRAINAGE WILL INCREASE. VIVIANA DRAINAGE AT 30 CC/DAY. IF NO INCREASE IN VIVIANA DRAINAGE, DR ACOSTA CAN REMOVE THE STENT TUESDAY. DCP- Discharge Planning Updated by [id number]: Emelia Manzo on 12/01/18 2:[address] Patient Name: KRYSTAL MAR Admission Status: Elective Accout number: [id number] Admission Date: 11-28-2018 : 1970 Admission Diagnosis: Attending: TIM DE LEON Current LOS: 3 Anticipated DC Date: Planned Disposition: Home Primary Insurance: CIGNA PPO Discharge Planning Comments: CM met with patient to discuss discharge planning, her mother is in the room. She lives independently with her . She states at discharge she will be going to stay with her mother at [address] IN [facility]. She states her mother will take her home. I discussed availability of inpatient rehab, SNF, home health and DME needs. She states she will need home health. I called [facility] first choice, [facility], and they do not take her insurance. I called her second choice, [facility], and spoke with Kiersten. I will send her clinical on Tuesday per her request. CM will continue to follow and assist with discharge planning/needs. Product Safety Compliance Leader: Emelia Manzo DCPIA - Discharge Planning Initial Assessment Updated by [id number]: Emelia Manzo on 12/01/18 3:35 pm * Is the patient Alert and Oriented? Yes * How many steps to enter\exit or inside your home? 0/0 * PCP Dinorah Calvert at Dr. Ribera's office * Pharmacy [facility] * Preadmission Environment Home with Family * ADLs Independent * Equipment None * List name and contact numbers for known caregivers / representatives who currently or will assist patient after discharge: Kaden Mar - - [phone] Kena Greer - mother - [phone] * Verbal permission to speak to the caregivers and representatives has been obtained from the patient. Yes * Community resources currently utilized None * Additional services required to return to the preadmission environment? Yes * Can the patient safely return to the preadmission environment? Yes * Has this patient been hospitalized within the prior 30 days at any hospital? Yes Coverage Notice Reviewer: [id number] - Emelia Manzo Notice Issued Date-Time: 12/01/2018 15:31 Notice Type: Patient Choice Letter Notice Delivered To: Patient Relationship to Patient: High School Mathematics Teacher Name: Delivery Method: HAND - Hand Delivered Kathrin Days: Prior Verbal Notification: Recipient Understood Notice: Yes Recipient Signature: Yes Med Rec Note Co-signed by Attending: Coverage Notice Comment: SUSIE for 1. [facility] 2. [facility] Last DP export: 12/11/18 5:47 p Patient Name: KRYSTAL MAR Page [id number] at 1134 All edits/amendments must be made on the electronic document DICTATION DATE: 12/12/18 1132 AUTO ROLLER: MICHAEL 12/12/18 113 RPT#: [id number] DC DATE: STATUS: ADM IN [facility] [address] [place] [address] END OF REPORT
--- NOTE | 2018-12-12 11:57 | MORECARE ---
CASE MANAGEMENT DISCHARGE SUMMARY PATIENT: KRYSTAL MAR UNIT: [id number] ADM DATE: 11/28/18 AGE: 48 : 71 SEX: F ROOM/BED: D.2222 AUTHOR: JOSSY,DOC PHYSICIAN: REFERRING PHYSICIAN: TIM DE LEON MD DATE OF SERVICE: 12/12/18 Discharge Plan Patient Name: KRYSTAL MAR Facility: [facility]:[place] : 1970 Planned Disposition: Home Anticipated Discharge Date: Discharge Date: Expected LOS: Initial Reviewer: [email or web address] Initial Review Date: 12/01/2018 Generated: 12/12/18 12:56 pm Comments DCP- Discharge Planning Updated by [id number]: Zulema Cruz on 12/12/18 10:[address] referral sent to [facility] to see if they are in network DCP- Discharge Planning Updated by [email or web address]: Zulema Cruz on 12/12/18 10:[address] Brody with [facility] called and stated that the patient's put of pocket expense is $20,000.00 then once she meets that she will be responsible for 40%. [facility] does not accept Cigna. DCP- Discharge Planning Updated by [email or web address]: Akila Sanchez on 12/11/18 5:[address] LATE ENTRY 1400 CM RECEIVED A TELEPHONE CALL FROM BRODY AT [facility] REGARDING UPDATE OF STATUS. CM FAXED REFERRAL PER EMELIA'S CASE MANAGEMENT NOTE. CM TO FOLLOW UP IN THE AM. NO DISCHARGE ORDER. QUESTION ILEUS VS SBO. CT SCAN WITH IV CONTRAST SHOWED NO URINARY LEAK FROM URETERAL ANASTOMOSIS. DR ACOSTA ASK DR DE LEON TO D/C JEANETTE TO SEE IF VIVIANA DRAINAGE WILL INCREASE. VIVIANA DRAINAGE AT 30 CC/DAY. IF NO INCREASE IN VIVIANA DRAINAGE, DR ACOSTA CAN REMOVE THE STENT TUESDAY. DCP- Discharge Planning Updated by [id number]: Emelia Manzo on 12/01/18 2:[address] Patient Name: KRYSTAL MAR Admission Status: Elective Accout number: [id number] Admission Date: 11-28-2018 : 1970 Admission Diagnosis: Attending: TIM DE LEON Current LOS: 3 Anticipated DC Date: Planned Disposition: Home Primary Insurance: CIGNA PPO Discharge Planning Comments: CM met with patient to discuss discharge planning, her mother is in the room. She lives independently with her . She states at discharge she will be going to stay with her mother at [address] [place] [address] [place] [facility]. She states her mother will take her home. I discussed availability of inpatient rehab, SNF, home health and DME needs. She states she will need home health. I called her first choice, [facility], and they do not take her insurance. I called her second choice, [facility], and spoke with Kiersten. I will send her clinical on Tuesday per her request. CM will continue to follow and assist with discharge planning/needs. Yard Hostler: Emelia Manzo DCPIA - Discharge Planning Initial Assessment Updated by [id number]: Emelia Manzo on 12/01/18 3:35 pm * Is the patient Alert and Oriented? Yes * How many steps to enter\exit or inside your home? 0/0 * PCP Dinorah Calvert at Dr. Ribera's office * Pharmacy [facility] * Preadmission Environment Home with Family * ADLs Independent * Equipment None * List name and contact numbers for known caregivers / representatives who currently or will assist patient after discharge: Kaden Mar - - [phone] Kena Greer - mother - [phone] * Verbal permission to speak to the caregivers and representatives has been obtained from the patient. Yes * Community resources currently utilized None * Additional services required to return to the preadmission environment? Yes * Can the patient safely return to the preadmission environment? Yes * Has this patient been hospitalized within the prior 30 days at any hospital? Yes Coverage Notice Reviewer: [id number] - Emelia Manzo Notice Issued Date-Time: 12/01/2018 15:31 Notice Type: Patient Choice Letter Notice Delivered To: Patient Relationship to Patient: Crepe Machine Operator Name: Delivery Method: HAND - Hand Delivered Kathrin Days: Prior Verbal Notification: Recipient Understood Notice: Yes Recipient Signature: Yes Med Rec Note Co-signed by Attending: Coverage Notice Comment: SUSIE for 1. [facility] 2. [facility] Last DP export: 12/12/18 10:34 a Patient Name: KRYSTAL MAR Page [id number] at 1157 All edits/amendments must be made on the electronic document DICTATION DATE: 12/12/186 SENIOR COGNOS DEVELOPER: MICHAEL 12/12/18 1156 RPT#: [id number] DC DATE: STATUS: ADM IN [facility] [address] [place] [address] END OF REPORT
--- NOTE | 2018-12-12 12:18 | NUR ---
PT STATES PAIN 7/10 TO ABDOMEN,PAIN MEDS GIVEN PER OCT. BOB FOR NAUSEA.
[2018-12-12 12:30] VITALS: BP 149/79
--- NOTE | 2018-12-12 13:27 | NUR ---
NUTRITION F//U CHART REVIEWED. PT TOLERATING REG DIET BUT INTAKE HAS BEEN POOR PAST FEW MEALS. WILL CONTINUE TO HONOR FOOD PREFERENCES, MONITOR PO INTAKE. RD FOLLOWING
[2018-12-12] MEDS ORDERED: PHENERGAN25 M1 PO (14:37)
[2018-12-12] MEDS ORDERED: DILAUDID2 MG PO (14:37)
[2018-12-12] MEDS ORDERED: ZYVOX600 MG PO (14:40)
[2018-12-12 15:38] VITALS: BP 127/69
--- NOTE | 2018-12-12 16:18 | MORECARE ---
CASE MANAGEMENT DISCHARGE SUMMARY PATIENT: KRYSTAL MAR UNIT: [id number] ADM DATE: 11/28/18 AGE: 48 : 72 SEX: F ROOM/BED: D.2222 AUTHOR: JOSSY,DOC PHYSICIAN: REFERRING PHYSICIAN: TIM DE LEON MD DATE OF SERVICE: 12/12/18 Discharge Plan Patient Name: KRYSTAL MAR Facility: [facility]:[place] : 1970 Planned Disposition: Home Anticipated Discharge Date: Discharge Date: Expected LOS: Initial Reviewer: [id number] Initial Review Date: 12/01/2018 Generated: 12/12/18 5:17 pm Comments DCP- Discharge Planning Updated by [email or web address]: Zulema Cruz on 12/12/18 10:[address] referral sent to [facility] to see if they are in network DCP- Discharge Planning Updated by [id number]: Zulema Cruz on 12/12/18 10:[address] Brody with [facility] called and stated that the patient's put of pocket expense is $20,000.00 then once she meets that she will be responsible for 40%. [facility] does not accept Cigna. DCP- Discharge Planning Updated by [id number]: Akila Sanchez on 12/11/18 5:[address] LATE ENTRY 1400 CM RECEIVED A TELEPHONE CALL FROM BRODY AT [facility] REGARDING UPDATE OF STATUS. CM FAXED REFERRAL PER EMELIA'S CASE MANAGEMENT NOTE. CM TO FOLLOW UP IN THE AM. NO DISCHARGE ORDER. QUESTION ILEUS VS SBO. CT SCAN WITH IV CONTRAST SHOWED NO URINARY LEAK FROM URETERAL ANASTOMOSIS. DR ACOSTA ASK DR DE LEON TO D/C JEANETTE TO SEE IF VIVIANA DRAINAGE WILL INCREASE. VIVIANA DRAINAGE AT 30 CC/DAY. IF NO INCREASE IN VIVIANA DRAINAGE, DR ACOSTA CAN REMOVE THE STENT TUESDAY. DCP- Discharge Planning Updated by [id number]: Emelia Manzo on 12/01/18 2:[address] Patient Name: KRYSTAL MAR Admission Status: Elective Accout number: [id number] Admission Date: 11-28-2018 : 1970 Admission Diagnosis: Attending: TIM DE LEON Current LOS: 3 Anticipated DC Date: Planned Disposition: Home Primary Insurance: CIGNA PPO Discharge Planning Comments: CM met with patient to discuss discharge planning, her mother is in the room. She lives independently with her . She states at discharge she will be going to stay with her mother at [address] [place] [address] [place] [facility]. She states her mother will take her home. I discussed availability of inpatient rehab, SNF, home health and DME needs. She states she will need home health. I called [facility] first choice, [facility], and they do not take her insurance. I called her second choice, [facility], and spoke with Kiersten. I will send her clinical on Tuesday per her request. CM will continue to follow and assist with discharge planning/needs. Buff Wheel Fabricator: Emelia Manzo DCPIA - Discharge Planning Initial Assessment Updated by [id number]: Emelia Manzo on 12/01/18 3:35 pm * Is the patient Alert and Oriented? Yes * How many steps to enter\exit or inside your home? 0/0 * PCP Dinorah Calvert at Dr. Ribrea's office * Pharmacy [facility] * Preadmission Environment Home with Family * ADLs Independent * Equipment None * List name and contact numbers for known caregivers / representatives who currently or will assist patient after discharge: Kaden Mar - - [phone] Kena Greer - mother - [phone] * Verbal permission to speak to the caregivers and representatives has been obtained from the patient. Yes * Community resources currently utilized None * Additional services required to return to the preadmission environment? Yes * Can the patient safely return to the preadmission environment? Yes * Has this patient been hospitalized within the prior 30 days at any hospital? Yes External Providers [facility] Next Contact Date: Service Request Date: Service Type: Resolution: Reviewer: Comments: Coverage Notice Reviewer: [id number] - Emelia Manzo Notice Issued Date-Time: 12/01/2018 15:31 Notice Type: Patient Choice Letter Notice Delivered To: Patient Relationship to Patient: Contact Manager Name: Delivery Method: HAND - Hand Delivered Kathrin Days: Prior Verbal Notification: Recipient Understood Notice: Yes Recipient Signature: Yes Med Rec Note Co-signed by Attending: Coverage Notice Comment: SUSIE for 1. [place] 2. [facility] Last DP export: 4/23/19 10:56 a Patient Name: KRYSTAL MAR Page 14521 at 1618 All edits/amendments must be made on the electronic document DICTATION DATE: 12/12/181616 RIDING INSTRUCTOR: MICHAEL 12/12/181616 RPT#: [id number] DC DATE: STATUS: ADM IN [facility] [address] [place] [address] END OF REPORT
--- NOTE | 2018-12-12 17:47 | MORECARE ---
CASE MANAGEMENT DISCHARGE SUMMARY PATIENT: KRYSTAL MAR UNIT: [id number] ADM DATE: 11/28/18 AGE: 48 : 72 SEX: F ROOM/BED: D.2222 AUTHOR: JOSSY,DOC PHYSICIAN: REFERRING PHYSICIAN: TIM DE LEON MD DATE OF SERVICE: 12/12/18 Discharge Plan Patient Name: KRYSTAL MAR Facility: [facility]:[place] : 1970 Planned Disposition: Home Anticipated Discharge Date: Discharge Date: Expected LOS: Initial Reviewer: [id number] Initial Review Date: 12/01/2018 Generated: 12/12/18 6:46 pm Comments DCP- Discharge Planning Updated by [email or web address]: Zulema Cruz on 12/12/18 10:[address] referral sent to [facility] to see if they are in network DCP- Discharge Planning Updated by [id number]: Zulema Cruz on 12/12/18 10:[address] Brody with [facility] called and stated that the patient's put of pocket expense is $20,000.00 then once she meets that she will be responsible for 40%. [facility] does not accept Cigna. DCP- Discharge Planning Updated by [id number]: Akila Sanchez on 12/11/18 5:[address] LATE ENTRY 1400 CM RECEIVED A TELEPHONE CALL FROM BRODY AT [facility] REGARDING UPDATE OF STATUS. CM FAXED REFERRAL PER EMELIA'S CASE MANAGEMENT NOTE. CM TO FOLLOW UP IN THE AM. NO DISCHARGE ORDER. QUESTION ILEUS VS SBO. CT SCAN WITH IV CONTRAST SHOWED NO URINARY LEAK FROM URETERAL ANASTOMOSIS. DR ACOSTA ASK DR DE LEON TO D/C JEANETTE TO SEE IF VIVIANA DRAINAGE WILL INCREASE. VIVIANA DRAINAGE AT 30 CC/DAY. IF NO INCREASE IN VIVIANA DRAINAGE, DR ACOSTA CAN REMOVE THE STENT TUESDAY. DCP- Discharge Planning Updated by [email or web address]: Emelia Manzo on 12/01/18 2:[address] Patient Name: KRYSTAL MAR Admission Status: Elective Accout number: [id number] Admission Date: 11-28-2018 : 1970 Admission Diagnosis: Attending: TIM DE LEON Current LOS: 3 Anticipated DC Date: Planned Disposition: Home Primary Insurance: CIGNA PPO Discharge Planning Comments: CM met with patient to discuss discharge planning, her mother is in the room. She lives independently with her . She states at discharge she will be going to stay with her mother at [address] [place] [address] [place] [facility]. She states her mother will take her home. I discussed availability of inpatient rehab, SNF, home health and DME needs. She states she will need home health. I called [facility] first choice, [facility], and they do not take her insurance. I called her second choice, [facility], and spoke with Kiersten. I will send her clinical on Tuesday per her request. CM will continue to follow and assist with discharge planning/needs. Head Turbine Operator: Emelia Manzo DCPIA - Discharge Planning Initial Assessment Updated by [id number]: Emelia Manzo on 12/01/18 3:35 pm * Is the patient Alert and Oriented? Yes * How many steps to enter\exit or inside your home? 0/0 * PCP Dinorah Calvert at Dr. Ribera's office * Pharmacy [facility] * Preadmission Environment Home with Family * ADLs Independent * Equipment None * List name and contact numbers for known caregivers / representatives who currently or will assist patient after discharge: Kaden Mar - - [phone] Kena Greer - mother - [phone] * Verbal permission to speak to the caregivers and representatives has been obtained from the patient. Yes * Community resources currently utilized None * Additional services required to return to the preadmission environment? Yes * Can the patient safely return to the preadmission environment? Yes * Has this patient been hospitalized within the prior 30 days at any hospital? Yes Coverage Notice Reviewer: [id number] - Emelia Manzo Notice Issued Date-Time: 12/01/2018 15:31 Notice Type: Patient Choice Letter Notice Delivered To: Patient Relationship to Patient: Mechanical Design Drafter Name: Delivery Method: HAND - Hand Delivered Kathrin Days: Prior Verbal Notification: Recipient Understood Notice: Yes Recipient Signature: Yes Med Rec Note Co-signed by Attending: Coverage Notice Comment: SUSIE for 1. [place] 2. [facility] Last DP export: 12/12/18 3:18 p Patient Name: KRYSTAL MAR Page [id number] at 1747 All edits/amendments must be made on the electronic document DICTATION DATE: 12/12/181745 HOME SALES SERVICE PROFESSIONAL: MIHCAEL 12/12/181745 RPT#: [id number] DC DATE: STATUS: ADM IN [facility] [address] [place] [address] END OF REPORT
--- NOTE | 2018-12-12 17:56 | MORECARE ---
CASE MANAGEMENT DISCHARGE SUMMARY PATIENT: KRYSTAL MAR UNIT: [id number] ADM DATE: 11/28/18 AGE: 48 : 72 SEX: F ROOM/BED: D.2222 AUTHOR: JOSSYDOC PHYSICIAN: REFERRING PHYSICIAN: TIM DE LEON MD DATE OF SERVICE: 12/12/18 Discharge Plan Patient Name: KRYSTAL MAR Facility: [facility]:[place] : 1970 Planned Disposition: Home Anticipated Discharge Date: Discharge Date: Expected LOS: Initial Reviewer: [email or web address] Initial Review Date: 12/01/2018 Generated: 12/12/18 6:56 pm Comments DCP- Discharge Planning Updated by [id number]: Zulema Cruz on 12/12/18 4:[address] Patient is in network with [facility]. Ray with [facility] stated that she will have a 20% copayment which will run $27.00 -$30.00 per visit. They will put her on a payment plan. I have called multiple companies to find someone who accepts her insurance. I spoke with India from [facility] ([phone] ext [phone]) she stated that could set her up with ostomy supplies they would need the follow faxed to [phone] Ostomy Supply Order, procedure note, script/facesheet. The hospital supplied her with 8 kits to take home & the patient stated that she did not want me to order anything for her at this point. [facility] number was given to the patient. The patient also stated that she has a friend who has an ostomy and could get help from her if she needed it, but she didn't think she was going to need it because it was temporary. Patient will be [facility] her home address is different then her facesheet home address [address] CM will send clinical to [facility] they will see her on . DCP- Discharge Planning Updated by [id number]: Zulema Cruz on 12/12/18 10:[address] referral sent to [facility] to see if they are in network DCP- Discharge Planning Updated by [id number]: Zulema Cruz on 12/12/18 10:[address] Brody with [facility] called and stated that the patient's put of pocket expense is $20,000.00 then once she meets that she will be responsible for 40%. [facility] does not accept Cigna. DCP- Discharge Planning Updated by [id number]: Akila Daniel on 12/11/18 5:[address] LATE ENTRY 1400 CM RECEIVED A TELEPHONE CALL FROM BRODY AT [facility] REGARDING UPDATE OF STATUS. CM FAXED REFERRAL PER EMELIA'S CASE MANAGEMENT NOTE. CM TO FOLLOW UP IN THE AM. NO DISCHARGE ORDER. QUESTION ILEUS VS SBO. CT SCAN WITH IV CONTRAST SHOWED NO URINARY LEAK FROM URETERAL ANASTOMOSIS. DR ACOSTA ASK DR DE LEON TO D/C REID TO SEE IF VIVIANA DRAINAGE WILL INCREASE. VIVIANA DRAINAGE AT 30 CC/DAY. IF NO INCREASE IN VIVIANA DRAINAGE, DR ACOSTA CAN REMOVE THE STENT TUESDAY. DCP- Discharge Planning Updated by [email or web address]: Emelia Manzo on 12/01/18 2:[address] Patient Name: KRYSTAL MAR Admission Status: Elective Accout number: [id number] Admission Date: 11-28-2018 : 1970 Admission Diagnosis: Attending: TIM DE LEON Current LOS: 3 Anticipated DC Date: Planned Disposition: Home Primary Insurance: CIGNA PPO Discharge Planning Comments: CM met with patient to discuss discharge planning, her mother is in the room. She lives independently with her . She states at discharge she will be going to stay with her mother at [address] [place] [address]. She states her mother will take her home. I discussed availability of inpatient rehab, SNF, home health and DME needs. She states she will need home health. I called [facility] first choice, [facility], and they do not take her insurance. I called her second choice, [facility], and spoke with Kiersten. I will send her clinical on Tuesday per her request. CM will continue to follow and assist with discharge planning/needs. Co Founder And Chief Strategy Officer: Emelia Manzo DCPIA - Discharge Planning Initial Assessment Updated by [email or web address]: Emelia Manzo on 12/01/18 3:35 pm * Is the patient Alert and Oriented? Yes * How many steps to enter\exit or inside your home? 0/0 * PCP Dinorah Calvert at Dr. Ribera's office * Pharmacy [facility] on [address] * Preadmission Environment Home with Family * ADLs Independent * Equipment None * List name and contact numbers for known caregivers / representatives who currently or will assist patient after discharge: Kaden Mar - - [phone] Kena Greer - mother - [phone] * Verbal permission to speak to the caregivers and representatives has been obtained from the patient. Yes * Community resources currently utilized None * Additional services required to return to the preadmission environment? Yes * Can the patient safely return to the preadmission environment? Yes * Has this patient been hospitalized within the prior 30 days at any hospital? Yes Coverage Notice Reviewer: [id number] Kashif Manzo Notice Issued Date-Time: 12/01/2018 15:31 Notice Type: Patient Choice Letter Notice Delivered To: Patient Relationship to Patient: Vp Software Support Name: Delivery Method: HAND - Hand Delivered Kathrin Days: Prior Verbal Notification: Recipient Understood Notice: Yes Recipient Signature: Yes Med Rec Note Co-signed by Attending: Coverage Notice Comment: SUSIE for 1. [place] 2. Liz[facility] Last DP export: 12/12/18 4:47 p Patient Name: KRYSTAL MAR Page [id number] at 1756 All edits/amendments must be made on the electronic document DICTATION DATE: 12/12/181754 DENTAL RESIDENT: MICHAEL 12/12/181754 RPT#: [id number] DC DATE: STATUS: ADM IN [facility] [address] [place] [address] END OF REPORT
--- NOTE | 2018-12-12 18:18 | MORECARE ---
CASE MANAGEMENT DISCHARGE SUMMARY PATIENT: KRYSTAL MAR UNIT: [id number] ADM DATE: 11/28/18 AGE: 48 : 72 SEX: F ROOM/BED: D.2222 AUTHOR: JOSSYDOC PHYSICIAN: REFERRING PHYSICIAN: TIM DE LEON MD DATE OF SERVICE: 12/12/18 Discharge Plan Patient Name: KRYSTAL MAR Facility: [facility]:[place] : 1970 Planned Disposition: Home Anticipated Discharge Date: Discharge Date: Expected LOS: 0 Initial Reviewer: [email or web address] Initial Review Date: 12/01/2018 Generated: 12/12/18 7:18 pm Comments DCP- Discharge Planning Updated by [email or web address]: Zulema Cruz on 12/12/18 4:[address] Patient is in network with [employer]. Ray with [employer] stated that she will have a 20% copayment which will run $27.00 -$30.00 per visit. They will put her on a payment plan. I have called multiple companies to find someone who accepts her insurance. I spoke with [place] from [employer] ([phone] ext [phone]) she stated that could set her up with ostomy supplies they would need the follow faxed to [phone] Ostomy Supply Order, procedure note, script/facesheet. The hospital supplied her with 8 kits to take home & the patient stated that she did not want me to order anything for her at this point. [employer] number was given to the patient. The patient also stated that she has a friend who has an ostomy and could get help from her if she needed it, but she didn't think she was going to need it because it was temporary. Patient will be discharging home with [facility] her home address is different then her facesheet home address is [address] CM will send clinical to [facility] they will see her on . DCP- Discharge Planning Updated by [email or web address]: Zulema Cruz on 12/12/18 10:[address] referral sent to [facility] to see if they are in network DCP- Discharge Planning Updated by [email or web address]: Zulema Cruz on 12/12/18 10:[address] Brody with [facility] called and stated that the patient's put of pocket expense is $20,000.00 then once she meets that she will be responsible for 40%. [facility] does not accept [employer]. DCP- Discharge Planning Updated by [id number]: Akila Daniel on 12/11/18 5:[address] LATE ENTRY 1400 CM RECEIVED A TELEPHONE CALL FROM BRODY AT [facility] REGARDING UPDATE OF STATUS. CM FAXED REFERRAL PER EMELIA'S CASE MANAGEMENT NOTE. CM TO FOLLOW UP IN THE AM. NO DISCHARGE ORDER. QUESTION ILEUS VS SBO. CT SCAN WITH IV CONTRAST SHOWED NO URINARY LEAK FROM URETERAL ANASTOMOSIS. DR ACOSTA ASK DR DE LEON TO D/C REID TO SEE IF VIVIANA DRAINAGE WILL INCREASE. VIVIANA DRAINAGE AT 30 CC/DAY. IF NO INCREASE IN VIVIANA DRAINAGE, DR ACOSTA CAN REMOVE THE STENT TUESDAY. DCP- Discharge Planning Updated by [email or web address]: Emelia Manzo on 12/01/18 2:[address] Patient Name: KRYSTAL MAR Admission Status: Elective Accout number: [id number] Admission Date: 11-28-2018 : 1970 Admission Diagnosis: Attending: TIM DE LEON Current LOS: 3 Anticipated DC Date: Planned Disposition: Home Primary Insurance: CIG[employer] PPO Discharge Planning Comments: CM met with patient to discuss discharge planning, her mother is in the room. She lives independently with her . She states at discharge she will be going to stay with her mother at [address] [place] [address] [place] [facility]. She states her mother will take her home. I discussed availability of inpatient rehab, SNF, home health and DME needs. She states she will need home health. I called her first choice, [facility], and they do not take her insurance. I called her second choice, [facility], and spoke with Kiersten. I will send her clinical on Tuesday per her request. CM will continue to follow and assist with discharge planning/needs. Supervisor Lending Activities: Emelia Manzo DCPIA - Discharge Planning Initial Assessment Updated by [id number]: Emelia Manzo on 12/01/18 3:35 pm * Is the patient Alert and Oriented? Yes * How many steps to enter\exit or inside your home? 0/0 * PCP Dinorah Calvert at Dr. Ribera's office * [facility]acy [facility] [address] * Preadmission Environment Home with Family * ADLs Independent * Equipment None * List name and contact numbers for known caregivers / representatives who currently or will assist patient after discharge: Kaden Mar - - [phone] Kena Greer - mother - [phone] * Verbal permission to speak to the caregivers and representatives has been obtained from the patient. Yes * Community resources currently utilized None * Additional services required to return to the preadmission environment? Yes * Can the patient safely return to the preadmission environment? Yes * Has this patient been hospitalized within the prior 30 days at any hospital? Yes External Providers External Provider: [employer] Next Contact Date: Service Request Date: Service Type: Resolution: Reviewer: Comments: Coverage Notice Reviewer: [email or web address] Kashif Manzo Notice Issued Date-Time: 12/01/2018 15:31 Notice Type: Patient Choice Letter Notice Delivered To: Patient Relationship to Patient: Pantographer Name: Delivery Method: HAND - Hand Delivered Kathrin Days: Prior Verbal Notification: Recipient Understood Notice: Yes Recipient Signature: Yes Med Rec Note Co-signed by Attending: Coverage Notice Comment: SUSIE for 1. [place] 2. [facility] Last DP export: 12/12/18 4:56 p Patient Name: KRYSTAL MAR Page [id number] at 1818 All edits/amendments must be made on the electronic document DICTATION DATE: 12/12/181817 QUALITY CONSULTANT: MICHAEL 12/12/181817 RPT#: [id number] DC DATE: STATUS: ADM IN [facility] [address] [place] [address] END OF REPORT
--- NOTE | 2018-12-12 18:35 | NUR ---
CVL DCD WITH CATH TIP INTACT. DRESSING APPLIED. PT INSTRUCTED TO SIT UP FOR 20 MIN.DISCHARGE INSTRUCTIONS PER CHARLENE. PT STATES UNDERSTANDING
--- NOTE | 2018-12-12 19:23 | NUR ---
DISCHARGED PER WC WITH AND BELONGINGS
== END 2018-12-12 19:23 | disposition home or self-care (01) | DRG 330 ==
LOC: D.MS 09:31 → D.SDCHOLD 09:31 → D.MS 19:52
PROVIDERS: Urology; ADMIT Surgery; ATTEND Surgery
PROC: 0T778DZ Dilation of Left Ureter with Intraluminal Device, Via Natural or Artificial Opening Endoscopic (ICD-10-PCS; 2018-11-28)
PROC: 0DTP0ZZ Resection of Rectum, Open Approach (ICD-10-PCS; 2018-11-28)
PROC: 0DTN0ZZ Resection of Sigmoid Colon, Open Approach (ICD-10-PCS; 2018-11-28)
PROC: 0D1B0Z4 Bypass Ileum to Cutaneous, Open Approach (ICD-10-PCS; principal; 2018-11-28 11:30)
PROC: 0TQ Urinary System, Repair (ICD-10-PCS; 2018-11-28 11:30)
DX: K56.52 Intestinal adhesions [bands] with complete obstruction (principal); S37.13XA Laceration of ureter, initial encounter; T81.41XA Infection following a procedure, superficial incisional surgical site, initial encounter; K59.39 Other megacolon; I95.9 Hypotension, unspecified; E83.51 Hypocalcemia; E83.42 Hypomagnesemia; I10 Essential (primary) hypertension; J45.909 Unspecified asthma, uncomplicated; E66.01 Morbid (severe) obesity due to excess calories; Z68.38 Body mass index [BMI] 38.0-38.9, adult

== ENCOUNTER 2018-12-27 12:58 | Observation (INO) | payer OTHER ==
[~2018-12-27] VITALS: Ht 160 cm; Wt 102.1 kg
[~2018-12-27 12:58] MED LIST changes: +BUSPAR 15 MG TA15 MG PO; +CHLORTHALIDONE25 MG PO; +DILAUDID2 MG PO; +TOPAMAX50 MG PO; +ZANTAC300 MG PO; +ZYVOX600 MG PO
[2018-12-27 13:55] LABS: BASOPHILS 0.2 % (0-2); EOSINOPHILS 1.8 % (0-7); HEMATOCRIT 28.1 % (36.0-48.0); HEMOGLOBIN 9.1 g/dL (12-16); IMMATURE GRANULOCYTES 0.2 % (0-5); LYMPHOCYTES 13.7 % (15-50); MCH 28.1 pg (26.0-34.0); MCHC 32.4 g/dL (31.0-37.0); MCV 86.7 fL (80.0-100.0); MEAN PLATELET VOLUME 10.3 fL (7.4-10.4); MONOCYTES 10.7 % (2-11); NEUTROPHILS 73.4 % (40-80); PLATELET COUNT 369 10x3/uL (130-400); RBC 3.24 10x6/uL (4.00-5.40); RDW 15.4 % (11.5-14.5); WBC 12.5 10x3/uL (4.8-10.8)
[2018-12-27 14:04] LABS: APTT 35.6 SECONDS (22.8-39.4)
[2018-12-27 14:05] LABS: INR 1.28 (0.85-1.17); PROTIME 15.5 SECONDS (11.6-15.0)
[2018-12-27 14:08] LABS: ALBUMIN 2.7 g/dL (3.4-5.0); ALKALINE PHOSPHATASE 114 U/L (46-116); ALT (SGPT) 18 U/L (10-68); BILIRUBIN - TOTAL 0.48 mg/dL (0.2-1.3); CALC OSMOLALITY 274 mosm/kg (275-300); CALCIUM 8.8 mg/dL (8.5-10.1); CARBON DIOXIDE 24.2 mmol/L (21.0-32.0); CHLORIDE - SERUM 100 mmol/L (98-107); CREATININE - SERUM 3.3 mg/dL (0.6-1.3); GLUCOSE 124 mg/dL (74-106); POTASSIUM - SERUM 4.9 mmol/L (3.5-5.1); SODIUM 134 mmol/L (136-145); UREA NITROGEN 29 mg/dL (7-18); eGFR NON AFRICAN AMERICAN 16 mL/min (90-120)
[2018-12-27 14:19] LABS: CKMB 0.2 U/L (0.0-3.6); CREATINE KINASE 22 UL (21-215); MAGNESIUM - SERUM 1.6 mg/dL (1.8-2.4); TROPONIN-I < 0.017 ng/mL (0.000-0.060)
[2018-12-27 14:52] VITALS: BP 114/69
[2018-12-27] MEDS ORDERED: PEPCID AC20 MG PO (16:54)
[2018-12-27 17:16] VITALS: BP 92/55
--- NOTE | 2018-12-27 19:45 | NUR ---
ROUNDS COMPLETED. VSS. AAOX4. FAMILY AT BEDSIDE. RR EVEN AND UNLABORED. ILEOSTOMY BAG APPEARS C/D/I. PT DENIES ANY NEEDS FOR COMFORT CARE. WILL CPOC.
--- NOTE | 2018-12-27 21:00 | NUR ---
ILEOSTOMY EMPTIED. PT PUT OUT 250CC'S. ASSIST PT UP TO BE RESTROOM. PT CURRENTLY RESTING IN BED. DENIES ANY FURTHER NEEDS AT THIS TIME. WILL CPOC.
--- NOTE | 2018-12-27 21:11 | NUR ---
PT C/O NAUSEA. ZOFRAN GIVEN AT THIS TIME. WILL CTM. @BEDSIDE.
[2018-12-27 21:27] VITALS: BP 88/45
[2018-12-27 23:26] VITALS: BP 102/59
--- NOTE | 2018-12-28 04:13 | NUR ---
PT C/O OF PIV ON L.AC HURTING. REMOVED IV ON L.AC. INSERTED A NEW PIV ON PT'S R.UPPER ARM. 22G. PT TOLERATE WELL. PT CURRENTLY RESTING IN BED DENIES ANY FURTHER NEEDS AT THIS TIME. WILL CPOC.
[2018-12-28 05:32] VITALS: BP 170/71
[2018-12-28 06:13] LABS: BASOPHILS 0.2 % (0-2); EOSINOPHILS 5.4 % (0-7); HEMOGLOBIN 9.4 g/dL (12-16); IMMATURE GRANULOCYTES 0.2 % (0-5); LYMPHOCYTES 16.2 % (15-50); MCHC 32.4 g/dL (31.0-37.0); MCV 86.3 fL (80.0-100.0); MEAN PLATELET VOLUME 10.1 fL (7.4-10.4); MONOCYTES 11.8 % (2-11); NEUTROPHILS 66.2 % (40-80); PLATELET COUNT 357 10x3/uL (130-400); RBC 3.36 10x6/uL (4.00-5.40); RDW 15.5 % (11.5-14.5); WBC 10.1 10x3/uL (4.8-10.8)
[2018-12-28 06:36] LABS: ALBUMIN 2.5 g/dL (3.4-5.0); ANION GAP 17.3 mmol/L (8-16); BILIRUBIN - TOTAL 0.24 mg/dL (0.2-1.3); CALCIUM 8.1 mg/dL (8.5-10.1); CARBON DIOXIDE 21.8 mmol/L (21.0-32.0); CREATININE - SERUM 2.5 mg/dL (0.6-1.3); PROTEIN - SERUM 8.4 g/dL (6.4-8.2)
[2018-12-28 06:43] LABS: POTASSIUM - SERUM 4.1 mmol/L (3.5-5.1)
[2018-12-28 07:48] VITALS: BP 134/81
[2018-12-28 12:20] VITALS: Ht 160 cm; Wt 102.1 kg
[2018-12-28 12:29] VITALS: BP 142/70
[2018-12-28 12:50] LABS: APPEARANCE SL CLDY (CLEAR); BILIRUBIN NEGATIVE (NEGATIVE); COLOR YELLOW (YELLOW); GLUCOSE NEGATIVE (NEGATIVE); KETONE NEGATIVE (NEGATIVE); NITRITE NEGATIVE (NEGATIVE); PROTEIN TRACE mg/dL (NEGATIVE); SPECIFIC GRAVITY 1.015 (1.005-1.020); UROBILINOGEN NORMAL (NORMAL)
[2018-12-28 12:53] LABS: BACTERIA MODERATE /hpf (NONE SEEN); EPITHELIAL CELLS 0-5 /hpf (0-5); YEAST >1+ WITH HYPHAE /hpf (NONE SEEN)
--- NOTE | 2018-12-28 14:34 | MORECARE ---
CASE MANAGEMENT DISCHARGE SUMMARY PATIENT: KRYSTAL MARIE UNIT: [id number] ADM DATE: 12/27/18 AGE: 48 : 72 SEX: F ROOM/BED: D.2026 AUTHOR: SELINA FENTON PHYSICIAN: REFERRING PHYSICIAN: CRYSTAL ESCOBAR MD DATE OF SERVICE: 12/28/18 Discharge Plan Patient Name: KRYSTAL MARIE Facility: [facility]:[place] : 1970 Planned Disposition: Home Anticipated Discharge Date: 12/28/18 Discharge Date: 12/28/2018 Expected LOS: 1 Initial Reviewer: [email or web address] Initial Review Date: 12/27/2018 Generated: 12/28/18 3:34 pm Patient Name: KRYSTAL MARIE Page [id number] at 1434 All edits/amendments must be made on the electronic document DICTATION DATE: 12/28/18 1434 DIVORCE MEDIATOR: MICHAEL 12/28/18 1434 RPT#: [id number] DC DATE:12/28/18 STATUS: DIS IN [facility] [address] [place] [address] END OF REPORT
--- NOTE | 2018-12-28 14:43 | MORECARE ---
CASE MANAGEMENT DISCHARGE SUMMARY PATIENT: KRYSTAL MARIE UNIT: [id number] ADM DATE: 12/27/18 AGE: 48 : 72 SEX: F ROOM/BED: D.6396 AUTHOR: JOSSY,DOC PHYSICIAN: REFERRING PHYSICIAN: CRYSTAL ESCOBAR MD DATE OF SERVICE: 12/28/18 Discharge Plan Patient Name: KRYSTAL MARIE Facility: [facility]:[place] : 1970 Planned Disposition: Home Anticipated Discharge Date: 12/28/18 Discharge Date: 12/28/2018 Expected LOS: 1 Initial Reviewer: [email or web address] Initial Review Date: 12/27/2018 Generated: 12/28/18 3:43 pm Comments DCP- Discharge Planning Updated by [email or web address]: Zaid Carter on 12/28/18 1:[address] Patient Name: KRYSTAL MARIE Admission Status: ER Accout number: [id number] Admission Date: 12-27-2018 : 1970 Admission Diagnosis: Attending: CRYSTAL ESCOBAR Current LOS: 1 Anticipated DC Date: 12-28-2018 Planned Disposition: Home Primary Insurance: CIGNA PPO Discharge Planning Comments: CM MET WITH PT IN ROOM TO DISCUSS DISCHARGE PLANNING AND NEEDS. PT REPORTS LIVING AT HOME INDEPENDENTLY WITH HER APOUSE. PT HAS NO MEDICAL EQUIPMENT AND RECEIVES OSTOMY SUPPLIES FROM [employer] PT HAS BEEN HAVING SOME ISSUE WITH THEM THEY SENT EVERYTHING EXCEPT [employer]. PT WILL CALL THEM TO LET THEM KNOW THAT SHE NEEDS THE SUPPLIES. PT HAS NO OUTSIDE SERVICES ASSISTING IN THE HOME. CM DISCUSSED AVAILABILITY OF HOME HEALTH, REHAB SERVICES AND MEDICAL EQUIPMENT. PT DENIES DISCHARGE NEEDS, REPORTS HER FRIEND IS HERE TO PICK HER UP FOR DISCHARGE HOME. CM NOTIFIED BEDSIDE NURSE WHO ASSISTED WITH [employer] FOR OSTOMY TO ALLOW PT TO ORDER MORE FROM HER SUPPLIER. GOLF CLUB MAKER NOTIFIED. Youth Development Professional: Zaid Carter DCPIA - Discharge Planning Initial Assessment Updated by [email or web address]: Zaid Carter on 12/28/18 2:38 pm * Is the patient Alert and Oriented? Yes * How many steps to enter\exit or inside your home? NONE * PCP TANIKA JOSHUA, DR. SLADE'S OFFICE * Pharmacy [facility] [address] * Preadmission Environment Home with Family * ADLs Independent * Equipment Ostomy Supplies * Other Equipment [employer] - OSTOMY SUPPLIES * List name and contact numbers for known caregivers / representatives who currently or will assist patient after discharge: KARLENE MARIE, SPOUSE, JANICE ZHU, MOTHER, * Verbal permission to speak to the caregivers and representatives has been obtained from the patient. N/A * Community resources currently utilized None * Please name any agencies selected above. NONE * Additional services required to return to the preadmission environment? No * Can the patient safely return to the preadmission environment? Yes * Has this patient been hospitalized within the prior 30 days at any hospital? No Last DP export: 12/28/18 1:34 pm Patient Name: KRYSTAL MARIE Page [phone] at 1443 All edits/amendments must be made on the electronic document DICTATION DATE: 12/28/181442 EVALUATION ANALYST: MICHAEL 12/28/18 1443 RPT#: [id number] DC DATE:12/28/18 STATUS: DIS IN [facility] [address] [place] [address] END OF REPORT
== END 2018-12-28 14:28 | disposition home or self-care (01) ==
LOC: D.ER 12:58 → OBSVTIME 15:42 → D.M2 15:42 → D.EDHOLD 15:42 → D.M2 16:05
PROVIDERS: Family Medicine; ADMIT Internal Medicine Nephrology; ATTEND Internal Medicine Nephrology
DX: N17.9 Acute kidney failure, unspecified (principal); D50.9 Iron deficiency anemia, unspecified; I95.9 Hypotension, unspecified; E83.42 Hypomagnesemia; T46.5X5A Adverse effect of other antihypertensive drugs, initial encounter; I10 Essential (primary) hypertension; Z86.73 Personal history of transient ischemic attack (TIA), and cerebral infarction without residual deficits; K59.09 Other constipation

== ENCOUNTER → 2019-01-16 10:46 | Outpatient (CLI) | payer OTHER ==
[2018-12-28 12:20] VITALS: BMI 38.9
[~2019-01-16 10:46] MED LIST changes: +PEPCID AC20 MG PO
== END | disposition home or self-care (01) ==
LOC: D.RAD 10:46
PROVIDERS: ATTEND Surgery
DX: K56.699 Other intestinal obstruction unspecified as to partial versus complete obstruction (principal)

== ENCOUNTER 2019-01-22 09:31 | Inpatient (IN) | payer OTHER ==
[~2019-01-22] VITALS: Ht 160 cm; Wt 98.2 kg
[2019-01-22] MEDS ORDERED: PROTONIX20 MG PO (14:22)
[2019-01-22] MEDS ORDERED: COZAAR100 MG PO (14:23)
[2019-01-22] MEDS ORDERED: CATAPRES0.3 MG PO (14:24)
[2019-01-22 15:01] LABS: BASOPHILS 0.2 % (0-2); EOSINOPHILS 7.8 % (0-7); HEMATOCRIT 30.2 % (36.0-48.0); HEMOGLOBIN 9.7 g/dL (12-16); IMMATURE GRANULOCYTES 0.1 % (0-5); LYMPHOCYTES 23.1 % (15-50); MCH 27.9 pg (26.0-34.0); MCHC 32.1 g/dL (31.0-37.0); MCV 86.8 fL (80.0-100.0); MEAN PLATELET VOLUME 9.5 fL (7.4-10.4); MONOCYTES 7.9 % (2-11); NEUTROPHILS 60.9 % (40-80); PLATELET COUNT 290 10x3/uL (130-400); RBC 3.48 10x6/uL (4.00-5.40); RDW 16.2 % (11.5-14.5); WBC 8.2 10x3/uL (4.8-10.8)
[2019-01-22 16:05] LABS: CALCIUM 8.7 mg/dL (8.5-10.1); CARBON DIOXIDE 23.7 mmol/L (21.0-32.0); CREATININE - SERUM 1.8 mg/dL (0.6-1.3); POTASSIUM - SERUM 3.7 mmol/L (3.5-5.1)
[2019-01-23 07:48] VITALS: BP 97/55; BMI 38.5
[2019-01-23 11:00] VITALS: BP 95/58
[2019-01-23 11:12] VITALS: BP 101/51
--- NOTE | 2019-01-23 11:20 | NUR ---
PT TO ROOM 2219 FROM PACU VIA BED. PT IS WITHOUT DISTRESS. DRESSING TO ABD CDI. VSS. ORIENTATION TO ROOM WITH PT. CALL LIGHT IN REACH
[2019-01-23 11:24] VITALS: BP 101/51; Ht 160 cm; Wt 98.2 kg
--- NOTE | 2019-01-23 11:50 | OP ---
PATIENT NAME: KRYSTAL MARIE MEDICAL RECORD: [id number] :[birth year] LOCATION:D.MS [place]19 ADMISSION DATE:01/23/19 SURGEON: BEBETO ACOSTA MD DATE OF OPERATION: 01/23/2019 SURGEON: Bebeto Acosta MD ANESTHESIA: General anesthesia by Min Melissa MD DIAGNOSIS: History of left ureteral injury, repaired over a stent. PROCEDURE: Cystoscopy, left ureteral stent removal, left retrograde pyelogram. FINDINGS: On cystoscopy, calcified stent with hematuria. No bladder tumors were seen. Retrograde pyelogram shows no extravasation of the ureteral repair site, no obstruction seen, prompt ureteral drainage. ESTIMATED BLOOD LOSS: None. CLINICAL HISTORY: This is a 48-year-old female, who has a clinical history, which is quite complex. She had a bowel obstruction, which was operated upon by Dr. Jason about a month or 2 ago. At that time, she has a lot of pelvic inflammation and the left ureter ended up getting transected. I was called into the operating room. The bladder was heavily inflamed and stuck down with the pelvic inflammation. Therefore, instead of reimplanting the ureter into the bladder, we performed a ureteral anastomosis. The ends were spatulated and the anastomosis was done over a ureteral stent. She comes now to have her ileostomy taken down. At the same time, we will be removing her ureteral stent on the left side. I will perform a retrograde pyelogram in order to verify that there is no extravasation at the ureteral anastomosis and that there is no stricture formation at that anastomosis. She has been given induction of general anesthesia. A central line has been placed. She has been given her preoperative antibiotics. She was placed into the dorsal lithotomy position. PROCEDURE IN DETAIL: The patient was prepped and draped. The cystoscope was introduced and the stent was found. The stent was removed by using grasping forceps. The entire stent was removed. A 5-Tamazight open-ended ureteral catheter was then inserted into the left ureteral orifice. Retrograde pyelogram was obtained by injecting diluted contrast. The contrast went all the way up into the renal pelvis and collecting system of the kidneys. No hydronephrosis was seen. The site of the anastomosis was seen where the ureter was a bit more dilated. However, there was no extravasation of contrast. With the ureteral catheter removed entirely, I observed the drainage of contrast from the renal pelvis all the way down through the anastomotic site and out into the bladder. No obstruction was seen. The ureteral drainage was very prompt. At this point, the scope was removed entirely. We then placed a 16-Tamazight Cortez catheter so that Dr. Jason can proceed with his surgery. I will order a Lasix renal scan to verify that there is no persistent obstruction at the site of the ureteral anastomosis. TRANSINT:[id number] Voice Confirmation ID: [id number] DOCUMENT ID: [id number] OPERATIVE REPORT [id number] KRYSTAL MARIE ROBERT S MD at 1150 CC: [id number] DICTATION DATE: 01/23/19918 CLOTHING PRESSER: 01/23/19 0939 ADM IN [facility] [address] [id number]
[2019-01-23 17:11] VITALS: BP 101/54
--- NOTE | 2019-01-23 18:07 | NUR ---
DAUGHTER IN ROOM,SHE IS TO GIVE BATH PER PT REQUEST. MEDS ORDERED PER MAR FOR ITCHING.CONT PLAN OF CARE
--- NOTE | 2019-01-23 20:00 | NUR ---
ASSESSMENT PER FLOWSHEET. DRSG TO LOWER ABDOMENT C/D/I. IV PATENT RT DLCVL SITE OF NS AT 125CC'S/HR SCRAP BURNER OF DILAUDID IN USE WITH SETTINGS AT 0.2MG Q10MIN W/4MG Q4H L/O. REID TO BEDSIDE DRAINAGE WITH YELLOW UA. PT NPO EXCEPT FOR ICE CHIPS. PT REFUSED SCD'S. SPOUSE IN ROOM.
--- NOTE | 2019-01-23 21:20 | NUR ---
DILAUDID 0.4MG IVP BOLUS GIVEN PER CHIEF EXECUTIVE OFFICER FOR BREAKTHROUGH PAIN.
[2019-01-23 21:28] VITALS: BP 109/53
--- NOTE | 2019-01-23 23:45 | NUR ---
C/O ITCHING BENADRYL 25MG IVP GIVEN FOR ITCHING.
[2019-01-24] VITALS (7 sets, daily range): BP systolic 90–119; BP diastolic 42–80
--- NOTE | 2019-01-24 | NUR ---
RESTING IN BED SR UP X2 CALL LIGHT WITHIN REACH.
--- NOTE | 2019-01-24 02:00 | NUR ---
AWAKE WANTING IVAC MACHINE MOVED TO OPPOSITE SIDE OF BED. IVAC MOVED TO RT SIDE OF BED. CONTROLS GIVN TO PATIENT.
--- NOTE | 2019-01-24 04:11 | NUR ---
PT C/O ITCHING INFORMED MED CAN BE GIVEN EVERY 6 HR AND NEXT DOSE CAN BE GIVEN AT 0545.
[2019-01-24 07:05] LABS: BASOPHILS 0 % (0-2); EOSINOPHILS 0 % (0-7); HEMATOCRIT 25.4 % (36.0-48.0); HEMOGLOBIN 8.1 g/dL (12-16); IMMATURE GRANULOCYTES 0.2 % (0-5); LYMPHOCYTES 10.9 % (15-50); MCH 27.6 pg (26.0-34.0); MCHC 31.9 g/dL (31.0-37.0); MCV 86.4 fL (80.0-100.0); MEAN PLATELET VOLUME 10.5 fL (7.4-10.4); MONOCYTES 6.8 % (2-11); NEUTROPHILS 82.1 % (40-80); PLATELET COUNT 267 10x3/uL (130-400); RBC 2.94 10x6/uL (4.00-5.40); RDW 16.2 % (11.5-14.5); WBC 10.2 10x3/uL (4.8-10.8)
[2019-01-24 07:25] LABS: ANION GAP 15.3 mmol/L (8-16); CALCIUM 8.3 mg/dL (8.5-10.1); CREATININE - SERUM 1.8 mg/dL (0.6-1.3)
[2019-01-24 07:26] LABS: POTASSIUM - SERUM 5.3 mmol/L (3.5-5.1)
--- NOTE | 2019-01-24 07:45 | NUR ---
PT ALERT AND ORIENTED. NO C/O PAIN. NO S/S OF ACUTE DISTRESS NOTED. DRESSING TO LOWER ABDOMEN, C/D/I. REID CATHETER PRESENT. CVL TO RIGHT SUBCLAVIAN AREA, DOUBLE LUMEN, NS INFUSING @ 125ML/HR AND DILAUDID LEATHER STITCHER 0.2-10-4. PT NPO EXCEPT ICE CHIPS. PT DENIES ANYTHING FURTHER AT THIS TIME. CALL LIGHT IN REACH. WILL CONTINUE TO MONITOR.
[2019-01-25] VITALS (8 sets, daily range): BP systolic 114–168; BP diastolic 51–92
--- NOTE | 2019-01-25 04:32 | NUR ---
I have reviewed this patient and I concur with the Shift Assessment completed by the Licensed Practical Nurse today this shift.
--- NOTE | 2019-01-25 05:37 | NUR ---
I have reviewed this patient and I concur with the Shift Assessment completed by the Licensed Practical Nurse today this shift.
--- NOTE | 2019-01-25 07:40 | NUR ---
PT RESTING IN BED, EYES OPEN. NO C/O PAIN. NO S/S OF ACUTE DISTRESS NOTED. PT SEEMS DOWN IN SPIRITS TODAY. PT DENIES ANYTHING FURTHER AT THIS TIME. CALL LIGHT IN REACH. WILL CONTINUE TO MONITOR.
[2019-01-25 08:22] LABS: BASOPHILS 0.1 % (0-2); EOSINOPHILS 1.4 % (0-7); HEMATOCRIT 26.5 % (36.0-48.0); HEMOGLOBIN 8.4 g/dL (12-16); IMMATURE GRANULOCYTES 0.1 % (0-5); MCH 27.7 pg (26.0-34.0); MCHC 31.7 g/dL (31.0-37.0); MCV 87.5 fL (80.0-100.0); MONOCYTES 9.3 % (2-11); NEUTROPHILS 65.1 % (40-80); PLATELET COUNT 265 10x3/uL (130-400); RBC 3.03 10x6/uL (4.00-5.40); RDW 16.7 % (11.5-14.5)
[2019-01-25 08:27] LABS: WBC 7.6 10x3/uL (4.8-10.8)
[2019-01-25 08:29] LABS: ANION GAP 14.5 mmol/L (8-16); CALCIUM 8.4 mg/dL (8.5-10.1); CARBON DIOXIDE 22.1 mmol/L (21.0-32.0); CREATININE - SERUM 1.6 mg/dL (0.6-1.3)
[2019-01-25 08:31] LABS: POTASSIUM - SERUM 3.6 mmol/L (3.5-5.1)
--- NOTE | 2019-01-25 14:12 | NUR ---
I have reviewed this patient and I concur with the Shift Assessment completed by the Licensed Practical Nurse today this shift.
--- NOTE | 2019-01-25 18:52 | NUR ---
PT SITTING UP IN BED, ALERT AND ORIENTED. PT ASKED TO RESCHEDULE SURGERY FOR TODAY, PT STATED "IT IS TOO LATE IN THE EVENING, I'VE BEEN WAITING ALL DAY AND I AM HUNGRY." SURGICAL TEAM AWARE AND IN TOUCH WITH PHYSICIAN. PT DENIES ANYTHING FURTHER. WILL CONTINUE TO MONITOR.
--- NOTE | 2019-01-25 19:00 | NUR ---
REPORT RECEIVED AND CARE OF PT ASSUMED. PT LYING IN LOW COHEN'S POSITION VISITING WITH SPOUSE. RIGHT CVL PATENT WITH NS INFUSING AT 125 ML / HR. RESERVATION AGENT W/ DILAUDID IN USE FOR PAIN CONTROL. REID CATHETER DRAINING TO GRAVITY WITH YELLOW URINE IN COLLECTION BAG. WILL MONITOR FOR NEEDS.
--- NOTE | 2019-01-25 19:51 | NUR ---
GAVE DILAUDID BOLUS VIA CHILD NEUROLOGIST PER REQUEST FOR SEVERE PAIN. WILL MONITOR FOR EFFECTIVENESS.
--- NOTE | 2019-01-25 22:15 | NUR ---
GAVE BENADRYL AND ZOFRAN IVP PER C/O NAUSEA AND ITCHING. WILL MONITOR FOR EFFECTIVENESS.
[2019-01-26] VITALS (13 sets, daily range): BP systolic 124–176; BP diastolic 68–98
--- NOTE | 2019-01-26 10:09 | OP ---
PATIENT NAME: KRYSTAL MARIE MEDICAL RECORD: [id number] :72 LOCATION:D.MS [place] ADMISSION DATE:01/23/19 SURGEON: DIOMEDES DE LEON MD DATE OF OPERATION: 01/23/2019 PREOPERATIVE DIAGNOSES: 1. Ileostomy. 2. Need for IV access. 3. Hypertension. POSTOPERATIVE DIAGNOSES: 1. Ileostomy. 2. Need for IV access. 3. Hypertension. PROCEDURES: 1. Right subclavian vein central venous line placement. 2. Ileostomy reversal. SURGEON: Diomedes De Leon MD REPORT OF PROCEDURE: The patient's right chest was prepped and draped in sterile fashion. A needle was used to cannulate the right subclavian vein and a guidewire was advanced with ease. Over this wire, a dilator was placed followed by the double lumen catheter. The catheter aspirated nonpulsatile dark blood and flushed easily in both ports. This was sutured into place with 3-0 silks and dressed appropriately. We then prepped the abdomen. This was prepped and draped in sterile fashion including the indwelling right lower quadrant ileostomy. Using electrocautery, we cored around the ileostomy with a small layer of skin. As we came down around the tissue, we came right next to the ileostomy, small bowel and took this down through the fascia until we entered the abdominal cavity. Once we had the ileostomy freed up, we could eviscerate this through the wound a little more easily. A couple of openings were made on the antimesenteric side of the small bowel and a 55 blue load LISA stapler was used to make a pthr-jx-vsaz anastomosis. We made windows in the mesentery and took down the small bowel using a 55 blue load LISA staplers and the mesentery was then taken down using a clamp and tie technique with 3-0 silk ties. The enterotomy was then closed with a 30 blue load TA stapler. We oversewed all the staple lines with 3-0 silks in a Lemberted fashion. We then placed the bowel back into the abdominal cavity through the ileostomy opening. The fascial edges were freed up and the fascial defect was closed transversely with multiple interrupted 0 Prolenes. We then irrigated out the wound with normal saline. The subcutaneous tissues were reapproximated in a pursestring fashion with 2-0 Vicryl and the skin was closed in a pursestring fashion with a 2-0 Vicryl. We then placed packing in the ileostomy site and also a small opening in the lower midline. COMPLICATIONS: None. CONDITION: Stable. ANESTHESIA: General endotracheal. BLOOD LOSS: 30 mL. OPERATIVE REPORT [id number] KRYSTAL MARIE TRANSINT:[id number] Voice Confirmation ID: [id number] DOCUMENT ID: [id number] DIOMEDES DE LEON MD at 1009 CC: [id number] DICTATION DATE: 01/23/19 1019 BEEHIVE KILN CHARCOAL BURNER: 01/23/19 [address] [facility] [address] [place] [address]
--- NOTE | 2019-01-26 12:45 | NUR ---
PATIENT DRESSING X [address] DE LEON. BOTH CLEAN AND DRY WITH SMALL AMOUNT OF DRAINAGE. INCISIONS CLEAN WITH NO SIGNS OF INFECTION. PATIENT TOLERATED WITH NO PAIN. IV INTACT. NO COMPLAINTS OR SIGNS OF DISTRESS. FAMILY AT BEDSIDE. CALL LIGHT WITHIN REACH.
--- NOTE | 2019-01-26 14:12 | NUR ---
PATIENT TO OR
--- NOTE | 2019-01-26 14:46 | NUR ---
1430 PATIENT HAS A BLACK ABOUT A QUARTER SIZE AREA ON RIGHT EYE, LOOKS CRUSTY AND HAS BEEN DRAINING, DR ACOSTA AWARE, PATIENTS ARMS DOWN BY SIDE FOR PROCEDURE, FRANCESCO.
--- NOTE | 2019-01-26 15:50 | NUR ---
PATIENT BACK TO ROOM FROM SURGERY. VS STABLE AND NO COMPLAINTS. BP ELEVATED. PATIENT STATES NO PAIN. WILL CONTINUE TO MONITOR. IV INTACT. FAMILY AT BEDSIDE. CALL LIGHT WITHIN REACH.
--- NOTE | 2019-01-26 16:15 | NUR ---
PATIENT BP DECREASING. PATIENT UP TO BR TO VOID. NO PROBLEMS AT THIS TIME. ASSISTED BACK TO BED WITH IV INTACT. NO COMPLAINTS, CALL LIGHT WITHIN REACH.
--- NOTE | 2019-01-26 18:45 | NUR ---
PATIENT IN BED WITH IV INTACT. LAYING IN BED WITH NO PROBLEMS OR DISTRESS. PAIN AND NAUSEA MEDS GIVEN. CALL LIGHT WITHIN REACH.
--- NOTE | 2019-01-26 19:00 | NUR ---
REPORT RECEIVED AND CARE OF PT ASSUMED. PT LYING ON LEFT SIDE WITH EYES CLOSED AND EASY RESPIRATIONS. RIGHT CVL PATENT WITH NS INFUSING AT 100 ML / HR. HYDRAULIC RIVETER W/ DILAUDID IN USE FOR PAIN CONTROL. WILL MONITOR FOR NEEDS.
--- NOTE | 2019-01-26 22:16 | NUR ---
HS MEDICATIONS GIVEN. WILL CONTINUE TO MONITOR FOR NEEDS.
--- NOTE | 2019-01-26 22:20 | NUR ---
GAVE 0.4 MG DILAUDID BOLUS PER REQUEST FOR PAIN. WILL CONTINUE TO MONITOR FOR NEEDS.
[2019-01-27] VITALS: BP 141/72
--- NOTE | 2019-01-27 00:24 | NUR ---
GAVE BENADRYL AND ZOFRA IVP PER REQUEST FOR ITCHING AND NAUSEA. WILL CONTINUE TO MONITOR FOR NEEDS. IS AT BEDSIDE.
[2019-01-27 04:00] VITALS: BP 158/65
--- NOTE | 2019-01-27 06:28 | NUR ---
DRESSING ON WOUND RLQ REMOVED BY MD. CLEANSED WITH PEROXIDE AND PACKED WITH 5" ON 1" KERLEX GAUZE AND COVERED WITH 4X4'S PER MD ORDER. GAVE DILAUDID 0.4 MG BOLUS VIA ARTIFICIAL FLOWER MAKER, ZOFRAN 4 MG IVP, AND BENADRYL 25 MG IVP PER PT REQUEST FOR PAIN, NAUSEA, AND ITCHING. WILL CONTINUE TO MONITOR FOR NEEDS. MD PUTTING IN DISCHARGE ORDERS AT THIS TIME.
--- NOTE | 2019-01-27 08:00 | NUR ---
ASSESSMENT PER FLOW SHEET. PT IS WITHOUT DISTRESS.CALL LIGHT IN REACH
[2019-01-27 08:09] VITALS: BP 142/75
[2019-01-27] MEDS ORDERED: HYDROCODON-ACE1 EAC7 PO (08:25)
[2019-01-27] MEDS ORDERED: COLACE100 MG PO (08:26)
--- NOTE | 2019-01-27 09:37 | NUR ---
DISCHARGE INSTRUCTIONS, STATES UNDERSTANDING. CVL DCD WITH CATH TIP INTACT
--- NOTE | 2019-01-27 09:50 | NUR ---
LEFT UNIT VIA WHEELCHAIR FOR TRANSPORT HOME
--- NOTE | 2019-01-27 19:20 | MORECARE ---
CASE MANAGEMENT DISCHARGE SUMMARY PATIENT: KRYSTAL MARIE UNIT: [id number] ADM DATE: 01/23/19 AGE: 48 : [birth year] SEX: F ROOM/BED: D.2219 AUTHOR: SELINA FENTON PHYSICIAN: REFERRING PHYSICIAN: TIM DE LEON MD DATE OF SERVICE: 01/27/19 Discharge Plan Patient Name: KRYSTAL MARIE Facility: [facility]:[place] : 1970 Planned Disposition: Anticipated Discharge Date: Discharge Date: 01/27/2019 Expected LOS: Initial Reviewer: [email or web address] Initial Review Date: 01/23/2019 Generated: 01/27/19 8:20 pm Patient Name: KRYSTAL MARIE Page [phone] at 1920 All edits/amendments must be made on the electronic document DICTATION DATE: 01/27/191918 BAND REAMER MACHINE OPERATOR: MICHAEL 01/27/191918 RPT#: [id number] DC DATE:01/27/19 STATUS: DIS IN [facility] [address] [place] [address] END OF REPORT
--- NOTE | 2019-01-28 11:31 | OP ---
PATIENT NAME: KRYSTAL MARIE MEDICAL RECORD: [id number] LOCATION:[id number] ADMISSION DATE:01/23/19 SURGEON: BEBETO ACOSTA MD DATE OF OPERATION: 01/26/2019 SURGEON: Bebeto Acosta MD ANESTHESIA: TIVA by Carmencita Elliott CRNA. DIAGNOSIS: Possible left ureteral stricture, none was found. PROCEDURE: Cystoscopy, left retrograde pyelogram. FINDINGS: Prompt excretion of the contrast from the left ureter, no sign of a stricture. There was a chronic left hydronephrosis of the left renal pelvis and calices. ESTIMATED BLOOD LOSS: None. CLINICAL HISTORY: This is a 48-year-old female with a chronic pelvic inflammation, bowel obstruction. She had a bowel resection by Dr. Jason, a few months ago and this was complicated by a left ureteral transection. The bladder was highly inflamed and stuck in the pelvis and therefore I performed an end-to-end anastomosis of the ureter to itself over a stent. Recently, she had an ileostomy reversal. At that time, I removed the left ureteral stent and I performed a retrograde pyelogram. I did not see a ureteral stricture. However, to be on the safe side, I obtained a Lasix renal scan the next day. The Lasix renal scan suggested a slow response to Lasix on the left side. There was a question of whether or not there was an obstruction of the left ureter. She comes today to have a left retrograde pyelogram performed. If I see a stricture, I will insert a left ureteral stent and refer her for robotic ureteral reimplantation in [place]. 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 DESCRIPTION OF PROCEDURE: The patient was given IV sedation. She was then placed in lithotomy position and prepped and draped. The indwelling Cortez catheter was removed. She has some bladder inflammation due to the indwelling Cortez catheter. The left ureteral orifice was identified. A ureteral catheter was inserted, slightly into the distal ureter and then a retrograde pyelogram was obtained by injecting diluted contrast. I did not see any sign of extravasation nor did I see any sign of a ureteral stricture. The calices are somewhat blunted from chronic hydronephrosis. The ureteral catheter was then removed and I observed the drainage from the ureter. The ureteral contrast drained very promptly due to ureteral peristalsis. There was still a holdup of drainage from the renal pelvis, most likely due to medical renal disease. However, there is no sign of a ureteral obstruction at all. Therefore, I did not proceed with ureteral stent insertion. The bladder was then emptied through the cystoscope sheath and the scope was removed. TRANSINT:[id number] Voice Confirmation ID: [id number] DOCUMENT ID: [id number] OPERATIVE REPORT [id number] KRYSTAL MARIE ROBERT S MD at 1131 CC: [id number] DICTATION DATE: 01/26/19 1455 WEIGHT CALLER: 01/26/191 DIS IN 01/27/19 [facility] [address] [place] [address]
== END 2019-01-27 09:50 | disposition home or self-care (01) | DRG 330 ==
LOC: D.MS 01-23 06:00 → D.SDCHOLD 01-23 06:00 → D.MS 01-23 10:22
PROVIDERS: Urology; ADMIT Surgery; ATTEND Surgery
PROC: BT1F1ZZ Fluoroscopy of Left Kidney, Ureter and Bladder using Low Osmolar Contrast (ICD-10-PCS; 2019-01-23)
PROC: 0DBB0ZZ Excision of Ileum, Open Approach (ICD-10-PCS; principal; 2019-01-23 08:00)
PROC: BT1FZZZ Fluoroscopy of Left Kidney, Ureter and Bladder (ICD-10-PCS; 2019-01-23 08:00)
PROC: 05H533Z Insertion of Infusion Device into Right Subclavian Vein, Percutaneous Approach (ICD-10-PCS; 2019-01-23 08:00)
PROC: 0TP98DZ Removal of Intraluminal Device from Ureter, Via Natural or Artificial Opening Endoscopic (ICD-10-PCS; 2019-01-23 08:00)
DX: Z43.2 Encounter for attention to ileostomy (principal); N20.1 Calculus of ureter; S37.10XA Unspecified injury of ureter, initial encounter; Z87.442 Personal history of urinary calculi; I10 Essential (primary) hypertension; X58.XXXA Exposure to other specified factors, initial encounter

== ENCOUNTER → 2019-02-16 19:48 | Outpatient (CLI) | payer OTHER ==
[2019-01-23 11:24] VITALS: BMI 38.3
[~2019-02-16 19:48] MED LIST changes: +COLACE100 MG PO; +HYDROCODON-ACE1 EAC7 PO; +PROTONIX20 MG PO
== END | disposition home or self-care (01) ==
LOC: D.LABREF 19:48
PROVIDERS: ATTEND Urology
DX: R31.9 Hematuria, unspecified (principal)